=== PATIENT | female | born 1935 | race Caucasian/White ===

== ENCOUNTER 2016-06-26 09:01 | Inpatient (IN) | payer MEDICARE, MEDICAID ==
[2016-06-26] MEDS ORDERED: methylPREDNISolone Sodium Succinate 125 MG/2 ML SDV ONE (10:30)
[2016-06-26] MEDS: methylPREDNISolone Sodium Succinate 125 MG/2 ML SDV IVPUSH SCH ×2 (10:30→18:53)
--- NOTE | 2016-06-26 11:35 | EDM.PDOC ---
ED HISTORY OF PRESENT ILLNESS - General Chief Complaint: Respiratory Problem Stated Complaint: SOB Time Seen by Provider: 06/26/16 09:45 Source: Reports: Patient, Family History Limitations: Reports: No limitations - History of Present Illness INITIAL COMMENTS - FREE TEXT/NARRATIVE: This is an 80yo F brought in via EMS for sob and increasing oxygen use. Patient states she has felt feverish at times and some chills. Patient states she has had to increase her oxygen to 3L for over a week and then increased it to 3.5L the past few days and EMS turned it up to 4L due to her oxygen saturation dropping to around 90's. Patient has felt sob for a few weeks now. Patient states she was unable to come in yesterday as she did not have a ride. 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 treatments, Home treatments, Other medication(s) - Related Data Allergies/ADRs: Allergies Allergy/AdvReac Type Severity Reaction Status Date / Time azithromycin [From Zithromax] Allergy Difficulty Verified 06/26/16 11:29 Breathing bupropion HCl Allergy Difficulty Verified 06/26/16 11:29 [From Wellbutrin] Breathing ciprofloxacin Allergy Difficulty Verified 06/26/16 11:29 Breathing fluticasone propionate Allergy Difficulty Verified 06/26/16 11:29 [From Advair Diskus] Breathing levofloxacin Allergy Muscle Verified 06/26/16 11:29 Aches salmeterol xinafoate Allergy Difficulty Verified 06/26/16 11:29 [From Advair Diskus] Breathing soy Allergy Difficulty Verified 06/26/16 11:29 Breathing ED ROS GENERAL - Review of Systems Review Of Systems: ROS reveals no pertinent complaints other than HPI. ED EXAM, GENERAL - Physical Exam Exam: See Below Exam Limited By: No limitations General Appearance: alert, WD/WN, mild distress Eye Exam: bilateral eye: PERRL Ears: normal external exam Ear Exam: bilateral ear: auricle normal, canal normal, TM normal Nose: normal inspection Throat/Mouth: Normal inspection Head: atraumatic, normocephalic Neck: normal inspection, supple, non-tender Respiratory/Chest: decreased breath sounds, rhonchi, wheezing Cardiovascular: normal peripheral pulses, tachycardia Peripheral Pulses: 2+: dorsalis pedis (L) GI/Abdominal: normal bowel sounds, soft, non tender Back Exam: normal inspection, full range of motion Extremities: normal inspection, normal range of motion, non-tender Neurological: alert, oriented, CN II-XII intact Psychiatric: normal affect, normal mood Skin Exam: Warm, Dry, Intact Course - Vital Signs Last Recorded V/S: Last Vital Signs Temp 36.5 C 06/26/16 10:50 Pulse 113 H 06/26/16 10:50 Resp 24 H 06/26/16 10:50 BP 140/65 06/26/16 10:50 Pulse Ox 94 L 06/26/16 10:50 - Orders/Labs/Meds Orders: Active Orders 24 hr Category Date Time Status methylPREDNISolone Sod Succ [Solu-MEDROL] Med 06/26/16 10:30 Active 125 mg IVPUSH Q8H Medication Orders Albuterol/Ipratropium (Duoneb 3.0-0.5 Mg/3 Ml) 3 ml NEB QID [facility]1983 Last Admin: 06/26/16 10:10 Dose: 3 ml Piperacillin Sod/Tazobactam (Sod 4.5 gm/ Sodium Chloride) 100 mls @ 200 mls/hr IV Q6H [facility]1983 Methylprednisolone Sodium Succinate (Solu-Medrol) 125 mg IVPUSH Q8H [facility] Last Admin: 06/26/16 10:30 Dose: 125 mg Ondansetron HCl (Zofran) 4 mg IV Q4H PRN PRN Reason: Nausea/Vomiting Sodium Chloride (Saline Flush) 10 ml FLUSH ASDIRECTED PRN PRN Reason: Keep Vein Open Labs: Laboratory Tests 06/26/16 06/26/16 06/26/16 Range/Units 10:16 10:16 10:16 WBC 11.1 H (4.0-11.0) K/uL RBC 4.57 (3.80-5.80) M/uL Hgb 13.0 (11.5-16.5) g/dL Hct 40.4 (37.0-47.0) % MCV 88 (76-96) fL MCH 28.4 (27.0-32.0) pg MCHC 32.2 (31.0-35.0) g/dL RDW 14.5 (11.0-16.0) % Plt Count 471 (150-500) K/uL MPV 9.6 (6.0-10.0) fL Neut % (Auto) 70.3 H (45.0-70.0) % Lymph % (Auto) 18.7 L (20.0-40.0) % Ashley % (Auto) 9.6 (3.0-10.0) % Eos % (Auto) 1.0 (1.0-5.0) % Baso % (Auto) 0.4 (0.0-0.5) % Neut # (Auto) 7.77 H (2.00-7.50) K/uL Lymph # (Auto) 2.07 (1.50-4.00) K/uL Ashley # (Auto) 1.06 H (0.20-0.80) K/uL Eos # (Auto) 0.11 (0.04-0.40) K/uL Baso # (Auto) 0.04 (0.02-0.10) K/uL VBG pH 7.33 (7.31-7.41) Sodium 139 (136-145) mmol/L Potassium 4.0 (3.5-5.1) mmol/L Chloride 99 (98-107) mmol/L Carbon Dioxide 30.2 (21.0-32.0) mmol/L Anion Gap 13.8 (5.0-15.0) mmol/L BUN 9 (8-26) mg/dL Creatinine 0.74 D (0.55-1.02) mg/dL Est Cr Clr Drug Dosing 47.16 mL/min Estimated GFR (MDRD) > 60 (>60) MLS/MIN BUN/Creatinine Ratio 12.2 (6-25) Glucose 122 H (74-100) mg/dL Calcium 8.7 (8.5-10.1) mg/dL Total Bilirubin 0.2 D (0.0-1.0) mg/dL AST 30 (15-37) U/L ALT 29 (12-78) U/L Alkaline Phosphatase 79 (46-116) U/L B-Natriuretic Peptide 100 D (0-450) pg/mL Total Protein 7.5 (6.4-8.2) g/dL Albumin 3.5 (3.4-5.0) g/dL Globulin 4.0 (2.2-4.2) g/dL Albumin/Globulin Ratio 0.9 (0.8-2.0) TSH, Ultra Sensitive 0.239 L D (0.358-3.740) uIU/mL Meds: Medications Generic Name Dose Route Start Last Admin Trade Name Freq PRN Reason Stop Dose Admin Albuterol/Ipratropium 3 ml 06/26/16 12:00 06/26/16 10:10 Duoneb 3.0-0.5 Mg/3 Ml NEB 3 ml QID AISSATOU Administration Piperacillin Sod/Tazobactam 100 mls @ 200 mls/hr 06/26/16 12:00 Sod 4.5 gm/ Sodium Chloride IV Q6H AISSATOU Methylprednisolone Sodium Succinate 125 mg 06/26/16 10:30 06/26/16 10:30 Solu-Medrol IVPUSH 125 mg Q8H AISSATOU Administration Ondansetron HCl 4 mg 06/26/16 10:24 Zofran IV Q4H PRN Nausea/Vomiting Sodium Chloride 10 ml 06/26/16 10:24 Saline Flush FLUSH ASDIRECTED PRN Keep Vein Open Discontinued Medications Generic Name Dose Route Start Last Admin Trade Name Freq PRN Reason Stop Dose Admin Methylprednisolone Sodium Succinate Confirm 06/26/16 10:30 Solu-Medrol Administered 06/26/16 10:31 Dose 125 mg .ROUTE .STK-MED ONE Departure - Departure Time of Disposition: 10:15 Disposition: Admitted As Inpatient 65 Condition: fair Clinical Impression: COPD exacerbation Pneumonia Qualifiers: Pneumonia type: due to unspecified organism Laterality: right Lung location: lower lobe of lung Qualified Code(s): J18.1 - Lobar pneumonia, unspecified organism CHF (congestive heart failure) Qualifiers: Congestive heart failure type: unspecified congestive heart failure type Congestive heart failure chronicity: chronic Qualified Code(s): I50.9 - Heart failure, unspecified Hypothyroidism Qualifiers: Hypothyroidism type: acquired Qualified Code(s): E03.9 - Hypothyroidism, unspecified Colon cancer Qualifiers: Colon location: unspecified part of colon Qualified Code(s): C18.9 - Malignant neoplasm of colon, unspecified - Problem List Review Problem List Initiated/Reviewed/Updated: Yes - My Orders Last 24 Hours: My Active Orders 06/26/16 10:30 methylPREDNISolone Sod Succ [Solu-MEDROL] 125 mg IVPUSH Q8H - Assessment/Plan Last 24 Hours: My Active Orders 06/26/16 10:30 methylPREDNISolone Sod Succ [Solu-MEDROL] 125 mg IVPUSH Q8H Plan: Patient admitted for pneumonia and COPD exacerbation. She has a history of Colon Cancer but per [facility] notes she is not being treated and has been assessed by Oncology and they are aware that patient does not want to do anything further. Started on Zosyn, Solumedrol started. Will consider change from Brovana to Pulmicort. Continue Duoneb as long as no concerns of side effects as she is doing well with her most recent duoneb dose.
[2016-06-26] MEDS ORDERED: Ipratropium 0.02% 0.5 MG/2.5 ML Neb Soln INH PRN (11:48)
[2016-06-26] MEDS ORDERED: Albuterol/Ipratropium 3.0-0.5 MG/3 ML Neb Soln NEB SCH (12:00)
[2016-06-26] MEDS ORDERED: Arformoterol 15 MCG/2 ML Neb Soln NEB SCH (12:00)
[2016-06-26] MEDS ORDERED: LEVALBUTEROL TARTRATE INH SCH (12:00)
[2016-06-26] MEDS ORDERED: Furosemide 20 MG Tab PO PRN (12:16)
[2016-06-26] MEDS ORDERED: Levalbuterol HCl 1.25 MG/0.5 ML Neb INH ONE (12:30)
[2016-06-26] MEDS: LORazepam 2 MG/ML MDV IVPUSH PRN (13:02)
[2016-06-26] MEDS: Piperacillin/Tazobactam 4.5 GM in Sodium Chloride 0.9% 100 ML IV SCH ×2 (13:04→18:07)
[2016-06-26] MEDS ORDERED: Nystatin Crm 30 GM Tube TOP PRN (14:20)
[2016-06-26] MEDS: Ipratropium 0.02% 0.5 MG/2.5 ML Neb Soln INH SCH ×2 (15:18→20:03)
[2016-06-26] MEDS: Acetaminophen 325 MG Tab PO PRN (18:00)
--- NOTE | 2016-06-26 19:19 | CR ---
DATE OF SERVICE: 06/26/16 CLINICAL DATA: SOB, COPD AP PORTABLE CHEST: Comparison made to a prior exam dated 11/09/15. The patient is rotated to the right. The heart is mildly enlarged. It has increased in size from the prior exam. There is a moderate-sized right pleural effusion. There is infiltrate and consolidation in the right lower lung. Pneumonia should be considered. There are mild atelectatic changes in the left lower lung. There is an irregularly-shaped nodular density in the right mid lung that I did not see on the prior exam. There is also a nodular density in the left lower lung not seen on the prior study. The exam is otherwise unchanged. Followup exam is recommended. [id number] [facility]
[2016-06-26] MEDS ORDERED: Fluticasone Propionate 220 MCG/Puff 12 GM Inhaler INH SCH (20:00)
[2016-06-26] MEDS: Melatonin 3 MG Tab PO SCH (20:03)
[2016-06-26] MEDS: Budesonide 0.5 MG/2 ML Neb Susp INH SCH (20:03)
[2016-06-26] MEDS: Levalbuterol HCl 1.25 MG/0.5 ML Neb INH SCH (20:09)
[2016-06-27] MEDS: Piperacillin/Tazobactam 4.5 GM in Sodium Chloride 0.9% 100 ML IV SCH ×4 (02:39→18:12)
[2016-06-27] MEDS: methylPREDNISolone Sodium Succinate 125 MG/2 ML SDV IVPUSH SCH ×3 (02:39→18:12)
[2016-06-27] MEDS: Ipratropium 0.02% 0.5 MG/2.5 ML Neb Soln INH SCH ×4 (02:43→19:56)
[2016-06-27] MEDS: Sodium Chloride 0.9% 10 ML Syringe FLUSH PRN (03:07)
[2016-06-27] MEDS: Acetaminophen 325 MG Tab PO PRN ×2 (03:19→10:31)
[2016-06-27] MEDS: LORazepam 2 MG/ML MDV IVPUSH PRN ×2 (03:47→13:16)
[2016-06-27] MEDS ORDERED: Furosemide 40 MG Tab PO SCH (08:00)
[2016-06-27] MEDS ORDERED: Non-Formulary Medication 1 Each (Ascorbic Acid [Vitamin C] 500 MG) PO SCH (08:00)
[2016-06-27] MEDS: Omeprazole 20 MG Cap.CR PO SCH (08:08)
[2016-06-27] MEDS: Levothyroxine 100 MCG Tab PO SCH (08:08)
[2016-06-27] MEDS: GENTLE IRON PO SCH (08:08)
[2016-06-27] MEDS: Budesonide 0.5 MG/2 ML Neb Susp INH SCH ×2 (08:09→20:23)
[2016-06-27] MEDS: Levalbuterol HCl 1.25 MG/0.5 ML Neb INH SCH ×3 (08:24→20:23)
[2016-06-27] MEDS: Cetirizine 10 MG Tab PO SCH ×2 (10:33→13:15)
[2016-06-27] MEDS ORDERED: Albuterol/Ipratropium 3.0-0.5 MG/3 ML Neb Soln INH ONE (11:30)
[2016-06-27] MEDS ORDERED: Morphine 2 MG/ML Syringe IVPUSH ONE (11:32)
[2016-06-27] MEDS ORDERED: Loperamide 2 MG Cap PO PRN (11:33)
[2016-06-27] MEDS ORDERED: Morphine 2 MG/ML Syringe ONE (11:39)
[2016-06-27] MEDS: CALCIUM CARB PO SCH (12:04)
[2016-06-27] MEDS: ZINC PO SCH (12:04)
[2016-06-27] MEDS: MAGNESIUM PO SCH (12:04)
[2016-06-27] MEDS: VITAMIN B6 100 MG PO SCH (12:06)
[2016-06-27] MEDS: [UNRECOGNIZED DRUG - OTHER] PO SCH (12:06)
[2016-06-27] MEDS: Montelukast 10 MG Tab PO SCH (12:09)
[2016-06-27] MEDS: Metoprolol Succinate 25 MG Tab.ER PO SCH (12:09)
[2016-06-27] MEDS: VITAMIN D3/CALCIUM PO SCH (13:17)
--- NOTE | 2016-06-27 14:04 | PCM.PN ---
- General Info Date of Service: 06/27/16 Subjective Update: This is an 80yo F with continued complaints of sob. Patient has an oxygen saturation of 92-96%. Patient also complains of diarrhea since yesterday. Denies any chest pain, no fever or chills. Functional Status: Reports: incentive spirometry - Review of Systems General: Reports: No Symptoms HEENT: Reports: no symptoms Pulmonary: Reports: shortness of breath, wheezing Cardiovascular: Reports: Dyspnea on Exertion Gastrointestinal: Reports: Diarrhea Genitourinary: Reports: no symptoms Musculoskeletal: Reports: no symptoms Skin: Reports: no symptoms Neurological: Reports: No Symptoms Psychiatric: Reports: no symptoms - Patient Data Vitals - most recent: Last Vital Signs Temp 37.1 C 06/27/16 11:00 Pulse 114 H 06/27/16 12:09 Resp 22 H 06/27/16 11:00 BP 125/58 L 06/27/16 12:09 Pulse Ox 95 06/27/16 11:00 Weight - most recent: 61.235 kg Lab Results last 24 hrs: Laboratory Results - last 24 hr 06/27/16 Range/Units 08:20 WBC 11.2 H (4.0-11.0) K/uL RBC 4.57 (3.80-5.80) M/uL Hgb 13.0 (11.5-16.5) g/dL Hct 40.5 (37.0-47.0) % MCV 89 (76-96) fL MCH 28.4 (27.0-32.0) pg MCHC 32.1 (31.0-35.0) g/dL RDW 14.7 (11.0-16.0) % Plt Count 566 H D (150-500) K/uL MPV 9.4 (6.0-10.0) fL Neut % (Auto) 86.1 H (45.0-70.0) % Lymph % (Auto) 12.4 L (20.0-40.0) % Ralls % (Auto) 1.2 L (3.0-10.0) % Eos % (Auto) 0.1 L (1.0-5.0) % Baso % (Auto) 0.2 (0.0-0.5) % Neut # (Auto) 9.67 H (2.00-7.50) K/uL Lymph # (Auto) 1.39 L (1.50-4.00) K/uL Ralls # (Auto) 0.14 L (0.20-0.80) K/uL Eos # (Auto) 0.01 L (0.04-0.40) K/uL Baso # (Auto) 0.02 (0.02-0.10) K/uL Ayo Results last 24 hrs: Microbiology 06/26/16 12:30 Aerobic Blood Culture - Preliminary Blood NO GROWTH AFTER 1 DAY Anaerobic Blood Culture - Preliminary NO GROWTH AFTER 1 DAY 06/26/16 11:45 Aerobic Blood Culture - Preliminary Blood NO GROWTH AFTER 1 DAY Anaerobic Blood Culture - Preliminary NO GROWTH AFTER 1 DAY Med Orders - Current: Current Medications Acetaminophen (Tylenol) 650 mg PO Q6H PRN PRN Reason: Headache Last Admin: 06/27/16 10:31 Dose: 650 mg Ascorbic Acid (Vitamin C) 500 mg PO 1200 AISSATOU Budesonide (Pulmicort) 0.5 mg INH BID [facility] Last Admin: 06/27/16 08:09 Dose: 0.5 mg Cetirizine HCl (Zyrtec) 10 mg PO 1200 AISSATOU Last Admin: 06/27/16 13:15 Dose: Not Given Furosemide (Lasix) 20 mg PO DAILY PRN PRN Reason: EDEMA Piperacillin Sod/Tazobactam (Sod 4.5 gm/ Sodium Chloride) 100 mls @ 200 mls/hr IV Q6H [facility] Last Admin: 06/27/16 11:52 Dose: 200 mls/hr Ipratropium [place] (Atrovent) 0.5 mg INH Q6H [facility] Last Admin: 06/27/16 08:08 Dose: 0.5 mg Levalbuterol HCl (Xopenex) 1.25 mg INH 0800,1400,2000 [facility] Last Admin: 06/27/16 08:24 Dose: 1.25 mg Levothyroxine Sodium (Synthroid) 100 mcg PO ACBREAKFAST [facility] Last Admin: 06/27/16 08:08 Dose: 100 mcg Loperamide HCl (Imodium) 2 mg PO Q4H PRN PRN Reason: Diarrhea Last Admin: 06/27/16 11:53 Dose: 2 mg Lorazepam (Ativan) 0.25 mg IVPUSH Q4H PRN PRN Reason: shortness of breath/anxiety Last Admin: 06/27/16 13:16 Dose: 0.25 mg Melatonin (Melatonin) 3 mg PO BEDTIME [facility] Last Admin: 06/26/16 20:03 Dose: 3 mg Methylprednisolone Sodium Succinate (Solu-Medrol) 125 mg IVPUSH Q8H [facility] Last Admin: 06/27/16 10:32 Dose: 125 mg Metoprolol Succinate (Toprol Xl) 25 mg PO 1200 [facility] Last Admin: 06/27/16 12:09 Dose: 25 mg Montelukast Sodium (Singulair) 10 mg PO 1200 [facility] Last Admin: 06/27/16 12:09 Dose: 10 mg (Calcium Carb/ (Magnesium/Zinc) 1 tab PO 1200 [facility] Last Admin: 06/27/16 12:04 Dose: 1 tab Cyanocobalamin 1 each PO 1200 [facility] Last Admin: 06/27/16 12:05 Dose: 1 each Gentle Iron 56 mg PO DAILY [facility] Last Admin: 06/27/16 08:08 Dose: 56 mg Vitamin B6 100mg 1 each PO 1200 [facility] Last Admin: 06/27/16 12:06 Dose: 1 each Vitamin D3/Calcium 1 each PO 1200 [facility] Last Admin: 06/27/16 13:17 Dose: 1 each Vitamin B Supplement 1 each PO 1200 [facility] Last Admin: 06/27/16 12:06 Dose: 1 each Nystatin (Nystatin Crm) 1 gm TOP TID PRN PRN Reason: YEAST UNDER BREASTS NEEDED Omeprazole (Omeprazole) 20 mg PO DAILY [facility] Last Admin: 06/27/16 08:08 Dose: 20 mg Ondansetron HCl (Zofran) 4 mg IV Q4H PRN PRN Reason: Nausea/Vomiting Sodium Chloride (Saline Flush) 10 ml FLUSH ASDIRECTED PRN PRN Reason: Keep Vein Open Last Admin: 06/27/16 03:07 Dose: 10 ml Discontinued Medications Albuterol/Ipratropium (Duoneb 3.0-0.5 Mg/3 Ml) 3 ml NEB QID [facility] Last Admin: 06/26/16 10:10 Dose: 3 ml Albuterol/Ipratropium (Duoneb 3.0-0.5 Mg/3 Ml) 3 ml INH ONETIME ONE Stop: 06/27/16 11:31 Last Admin: 06/27/16 11:30 Dose: 3 ml Levalbuterol HCl (Xopenex) 1.25 mg INH ONETIME ONE Stop: 06/26/16 12:31 Last Admin: 06/26/16 12:30 Dose: 1.25 mg Methylprednisolone Sodium Succinate (Solu-Medrol) Confirm Administered Dose 125 mg .ROUTE .STK-MED ONE Stop: 06/26/16 10:31 Last Admin: 06/26/16 13:03 Dose: Not Given Morphine Sulfate (Morphine) 1 mg IVPUSH ONETIME ONE Stop: 06/27/16 11:33 Last Admin: 06/27/16 11:51 Dose: 1 mg Morphine Sulfate (Morphine) Confirm Administered Dose 2 mg .ROUTE .STK-MED ONE Stop: 06/27/16 11:40 Last Admin: 06/27/16 12:09 Dose: Not Given - Exam Quality Assessment: supplemental oxygen General: alert, oriented, cooperative HEENT: Pupils equal, Pupils reactive Neck: supple Lungs: Decreased breath sounds, Wheezing Cardiovascular: Regular Rhythm, Tachycardia Abdomen: bowel sounds present, soft, no tenderness, abnormal bowel sounds ( frequent) Back Exam: normal inspection, full range of motion Extremities: no edema Peripheral Pulses: 2+: dorsalis pedis (L), dorsalis pedis (R) Skin: warm, dry, intact Neurological: no new focal deficit Psy/Mental Status: alert, normal affect, normal mood - Problem List & Annotations (1) Clostridium difficile diarrhea SNOMED Code(s): 273742807, 648783760 Code(s): A04.7 - ENTEROCOLITIS DUE TO CLOSTRIDIUM DIFFICILE Status: Acute Priority: High Current Visit: Yes (2) CHF (congestive heart failure) SNOMED Code(s): 44131051 Code(s): I50.9 - HEART FAILURE, UNSPECIFIED Status: Chronic Priority: Medium Current Visit: Yes Qualifiers: Congestive heart failure type: unspecified congestive heart failure type Congestive heart failure chronicity: chronic Qualified Code(s): I50.9 - Heart failure, unspecified (3) COPD exacerbation SNOMED Code(s): 816689080, 787408627 Code(s): J44.1 - CHRONIC OBSTRUCTIVE PULMONARY DISEASE W (ACUTE) EXACERBATION Status: Acute Priority: High Current Visit: Yes (4) Colon cancer SNOMED Code(s): 544661334 Code(s): C18.9 - MALIGNANT NEOPLASM OF COLON, UNSPECIFIED Status: Chronic Priority: Medium Current Visit: Yes Qualifiers: Colon location: unspecified part of colon Qualified Code(s): C18.9 - Malignant neoplasm of colon, unspecified (5) Hypothyroidism SNOMED Code(s): 38876359 Code(s): E03.9 - HYPOTHYROIDISM, UNSPECIFIED Status: Chronic Priority: Medium Current Visit: Yes Qualifiers: Hypothyroidism type: acquired Qualified Code(s): E03.9 - Hypothyroidism, unspecified (6) Pneumonia SNOMED Code(s): 332601951 Code(s): J18.9 - PNEUMONIA, UNSPECIFIED ORGANISM Status: Acute Priority: High Current Visit: Yes Qualifiers: Pneumonia type: due to unspecified organism Laterality: right Lung location: lower lobe of lung Qualified Code(s): J18.1 - Lobar pneumonia, unspecified organism - Problem List Review Problem List Initiated/Reviewed/Updated: Yes - My Orders Last 24 Hours: My Active Orders 06/26/16 14:20 Nystatin [Nystatin Crm] 1 gm TOP TID PRN 06/26/16 14:30 Ipratropium [Atrovent] 0.5 mg INH Q6H 06/26/16 16:20 CULTURE MRSA SURVEY [] Routine 06/26/16 18:01 Acetaminophen [Tylenol] 650 mg PO Q6H PRN 06/26/16 20:00 Budesonide [Pulmicort] 0.5 mg INH BID Levalbuterol HCl [Xopenex] 1.25 mg INH 0800,1400,2000 Melatonin 3 mg PO BEDTIME 06/27/16 08:00 Ferrous Gluconate [Ferate] 56 mg PO DAILY Levothyroxine [Synthroid] 100 mcg PO ACBREAKFAST Omeprazole 20 mg PO DAILY 06/27/16 11:32 CLOSTRIDIUM DIFFICILE BY PCR [RM] Routine 06/27/16 11:33 Loperamide [Imodium] 2 mg PO Q4H PRN 06/27/16 12:00 Ascorbic Acid [Vitamin C] 500 mg PO 1200 Calcium Carb/D3/Magnesium/Zinc [Bogdan Mag Zinc + D3] 1 tab PO 1200 Cetirizine [ZyrTEC] 10 mg PO 1200 Cyanocobalamin/Cobamamide [Cvs B-12 5,000 Mcg Microlozeng] 1 each PO 1200 Metoprolol Succinate [Toprol XL] 25 mg PO 1200 Montelukast [Singulair] 10 mg PO 1200 Non-Formulary Medication [NF Drug] 1 each PO 1200 Non-Formulary Medication [NF Drug] 1 each PO 1200 Non-Formulary Medication [NF Drug] 1 each PO 1200 06/27/16 Dinner Sodium Restricted Diet [DIET] - Plan Plan:: Pneumonia: Patient to continue on current IV antibiotics for pneumonia. Pending blood cultures. Clostridium Difficile diarrhea: Treatment to start with oral Vancomycin for 14 days. Contact isolation protocol. COPD exacerbation: Continue adjustment of nebulizers and inhalers with steroids. Monitor status and oxygen. Patient appears anxious which causes increasing feeling of sob despite good oxygenation. CHF: Chronic, no JVD, continue monitoring fluid status.
[2016-06-27] MEDS: Ascorbic Acid 500 MG Tab PO SCH (15:13)
[2016-06-27] MEDS: Vancomycin 1 GM SDV PO SCH ×2 (15:14→19:56)
[2016-06-27] MEDS: Morphine 2 MG/ML Syringe IVPUSH PRN ×2 (19:54→23:33)
[2016-06-27] MEDS: Melatonin 3 MG Tab PO SCH (19:56)
[2016-06-28] MEDS: Piperacillin/Tazobactam 4.5 GM in Sodium Chloride 0.9% 100 ML IV SCH ×4 (05:12→18:16)
[2016-06-28] MEDS: Morphine 2 MG/ML Syringe IVPUSH PRN ×5 (05:13→20:09)
[2016-06-28] MEDS: methylPREDNISolone Sodium Succinate 125 MG/2 ML SDV IVPUSH SCH ×3 (05:13→18:17)
[2016-06-28] MEDS: Ipratropium 0.02% 0.5 MG/2.5 ML Neb Soln INH SCH ×4 (05:15→20:08)
[2016-06-28] MEDS: Levothyroxine 100 MCG Tab PO SCH ×2 (05:16→08:40)
[2016-06-28] MEDS: Omeprazole 20 MG Cap.CR PO SCH (07:55)
[2016-06-28] MEDS ORDERED: Ferrous Sulfate 325 MG Tab ONE (08:00)
[2016-06-28] MEDS: Vancomycin 1 GM SDV PO SCH ×4 (08:02→20:09)
[2016-06-28] MEDS: Budesonide 0.5 MG/2 ML Neb Susp INH SCH ×2 (08:02→20:09)
[2016-06-28] MEDS ORDERED: Ferrous Gluconate 324 MG Tab ONE ×2 (08:26→08:36)
[2016-06-28] MEDS: GENTLE IRON PO SCH (08:43)
[2016-06-28] MEDS ORDERED: Furosemide 20 MG Tab PO PRN (09:27)
--- NOTE | 2016-06-28 10:20 | PN ---
DATE OF VISIT: SUBJECTIVE: This patient is in the hospital for COPD. She has had problems with shortness of breath and is also having some issues with coffee-ground stool. The patient does have history of colon cancer. I understand, but chose not to undergo any treatment for this. Nursing staff reports that the patient continues to be in some shortness of breath. They have been giving neb treatments to her in addition to oxygen. The patient's O2 sats have been good in the mid to upper 90s with oxygen. The patient has been eating small amounts of food and has not been complaining of any pain. When I walked into the room today, the patient was in the middle of a nebulizer treatment. I asked the patient how she is feeling and she says not real good, but she is not having any pain. She has some shortness of breath. OBJECTIVE: VITAL SIGNS: Reviewed today. She is afebrile. Blood pressure 141/74, O2 sats are 98% on oxygen, respiratory rate 20. GENERAL: The patient is taking deep breaths and using accessory muscles with respiration. There is no coughing at this time. RESPIRATORY: Lung exam reveals mild wheezes scattered throughout and some rales also noted, scattered. ABDOMEN: Soft, protuberant. nontender. SKIN: Warm and dry. The patient has no significant swelling of the ankles, they are small. ASSESSMENT/PLAN: Treatment changes today. I will increase the patient's Lasix from 20 mg to 40 mg today. They have been giving her morphine at 1 mg every 2 hours as needed for anxiety. They should do this more routinely today than p.r.n. and we will see how the patient responds to this. Continue other treatment measures. CRS/MODL /[id number]
[2016-06-28] MEDS: Furosemide 20 MG Tab PO SCH (10:49)
[2016-06-28] MEDS: Levalbuterol HCl 1.25 MG/0.5 ML Neb INH SCH ×2 (11:42→14:20)
[2016-06-28] MEDS: Lactobacillus Acidophilus/Lactobacillus Sporogenes (Probiotic) Tab PO SCH (12:26)
[2016-06-28] MEDS: CALCIUM CARB PO SCH (12:26)
[2016-06-28] MEDS: ZINC PO SCH (12:26)
[2016-06-28] MEDS: MAGNESIUM PO SCH (12:26)
[2016-06-28] MEDS: VITAMIN B6 100 MG PO SCH (12:27)
[2016-06-28] MEDS: VITAMIN D3/CALCIUM PO SCH (12:27)
[2016-06-28] MEDS: Metoprolol Succinate 25 MG Tab.ER PO SCH (12:28)
[2016-06-28] MEDS: Cetirizine 10 MG Tab PO SCH (12:28)
[2016-06-28] MEDS: [UNRECOGNIZED DRUG - OTHER] PO SCH (12:28)
[2016-06-28] MEDS: Ascorbic Acid 500 MG Tab PO SCH (12:28)
[2016-06-28] MEDS: Montelukast 10 MG Tab PO SCH (12:29)
[2016-06-28] MEDS: Menthol/Zinc Oxide Ointment 113 GM Tube TOP PRN ×2 (14:00→18:00)
[2016-06-28] MEDS: Melatonin 3 MG Tab PO SCH (20:11)
[2016-06-28] MEDS: Sodium Chloride 0.9% 10 ML Syringe FLUSH PRN (20:12)
[2016-06-29] MEDS: Piperacillin/Tazobactam 4.5 GM in Sodium Chloride 0.9% 100 ML IV SCH ×4 (00:08→18:16)
[2016-06-29] MEDS: Morphine 2 MG/ML Syringe IVPUSH PRN ×2 (02:12→07:56)
[2016-06-29] MEDS: methylPREDNISolone Sodium Succinate 125 MG/2 ML SDV IVPUSH SCH ×2 (02:13→20:30)
[2016-06-29] MEDS: Sodium Chloride 0.9% 10 ML Syringe FLUSH PRN ×2 (02:13→07:54)
[2016-06-29] MEDS: LORazepam 2 MG/ML MDV IVPUSH PRN (02:35)
[2016-06-29] MEDS ORDERED: Melatonin 3 MG Tab ONE (03:04)
[2016-06-29] MEDS: Levothyroxine 100 MCG Tab PO SCH ×2 (05:22→07:09)
[2016-06-29] MEDS: Acetaminophen 325 MG Tab PO PRN ×2 (05:22→13:34)
[2016-06-29] MEDS: Ondansetron 4 MG/2 ML SDV IV PRN (07:54)
[2016-06-29] MEDS: Omeprazole 20 MG Cap.CR PO SCH (07:58)
[2016-06-29] MEDS: Fluticasone Propionate 220 MCG/Puff 12 GM Inhaler INH SCH ×2 (08:07→20:00)
[2016-06-29] MEDS: Budesonide 0.5 MG/2 ML Neb Susp INH SCH ×2 (08:08→20:02)
[2016-06-29] MEDS: GENTLE IRON PO SCH (08:15)
[2016-06-29] MEDS: Furosemide 20 MG Tab PO SCH (08:15)
[2016-06-29] MEDS: Vancomycin 1 GM SDV PO SCH ×4 (12:15→19:56)
[2016-06-29] MEDS: methylPREDNISolone Sodium Succinate 125 MG/2 ML SDV IM SCH ×2 (12:59→19:00)
[2016-06-29] MEDS: Ascorbic Acid 500 MG Tab PO SCH (13:00)
[2016-06-29] MEDS: Metoprolol Succinate 25 MG Tab.ER PO SCH (13:00)
[2016-06-29] MEDS: CALCIUM CARB PO SCH (13:31)
[2016-06-29] MEDS: MAGNESIUM PO SCH (13:31)
[2016-06-29] MEDS: VITAMIN D3/CALCIUM PO SCH (13:31)
[2016-06-29] MEDS: ZINC PO SCH (13:31)
[2016-06-29] MEDS: [UNRECOGNIZED DRUG - OTHER] PO SCH (13:32)
[2016-06-29] MEDS: VITAMIN B6 100 MG PO SCH (13:32)
[2016-06-29] MEDS: Montelukast 10 MG Tab PO SCH (13:34)
[2016-06-29] MEDS: Cetirizine 10 MG Tab PO SCH (13:34)
[2016-06-29] MEDS: Lactobacillus Acidophilus/Lactobacillus Sporogenes (Probiotic) Tab PO SCH (13:36)
[2016-06-29] MEDS: Morphine 2 MG/ML Syringe SUBCUT PRN (13:55)
--- NOTE | 2016-06-29 16:06 | PN ---
DATE OF VISIT: SUBJECTIVE: In seeing the patient today, her breathing has definitely improved. She was sleeping quietly when I entered her room. she is being treated for COPD and C Diff. The patient awakened with verbal stimuli. She states that she is tired, otherwise that she feels better. She is not having any pain. Yesterday, the patient was still having mild shortness of breath and taking long deep breaths. Today, her breathing is unlabored. Examining the patient reveals lungs are still having minimal expiratory wheezes scattered throughout. I do not hear any rales or rhonchi today. Abdomen is soft and nontender. Lower extremities reveal the skin is intact without any more than a trace of swelling today. Yesterday, I did increase her Lasix from 20 mg to 40 mg and she was restarted on her Flovent which she wanted to use. At this point, no further changes will be made. The patient's condition has definitely improved from yesterday. Her family members had some concern about her eyes being mattery and possibly infected. I examined the patient's eyes today. Conjunctivae pale. Sclerae white. There is no matter or exudate. Her IV is no longer patent, and a new IV site was not able to be obtained. Therefore Zosyn will be replaced with Augmentin. No further treatment measures will be started today. CRS/MODL /[id number]
[2016-06-29] MEDS ORDERED: Amoxicillin/Clavulanate K 875-125 MG Tab ONE (16:16)
[2016-06-29] MEDS: Ipratropium 0.02% 0.5 MG/2.5 ML Neb Soln NEB SCH ×2 (16:35→21:41)
[2016-06-29] MEDS: Melatonin 3 MG Tab PO SCH (19:56)
[2016-06-29] MEDS: Amoxicillin/Clavulanate K 875-125 MG Tab PO SCH (20:05)
[2016-06-30] MEDS: methylPREDNISolone Sodium Succinate 125 MG/2 ML SDV IM SCH ×3 (03:15→20:06)
[2016-06-30] MEDS: Morphine 2 MG/ML Syringe SUBCUT PRN ×4 (03:23→20:31)
[2016-06-30] MEDS: Levothyroxine 100 MCG Tab PO SCH (06:32)
[2016-06-30] MEDS: Ipratropium 0.02% 0.5 MG/2.5 ML Neb Soln NEB SCH ×3 (06:32→22:21)
[2016-06-30] MEDS: Vancomycin 1 GM SDV PO SCH ×5 (07:26→20:12)
[2016-06-30] MEDS: Budesonide 0.5 MG/2 ML Neb Susp INH SCH ×2 (07:28→20:17)
[2016-06-30] MEDS: Omeprazole 20 MG Cap.CR PO SCH (07:29)
[2016-06-30] MEDS: Amoxicillin/Clavulanate K 875-125 MG Tab PO SCH ×2 (07:29→20:11)
[2016-06-30] MEDS: Furosemide 20 MG Tab PO SCH (07:29)
[2016-06-30] MEDS: Fluticasone Propionate 220 MCG/Puff 12 GM Inhaler INH SCH ×2 (07:30→20:14)
[2016-06-30] MEDS: GENTLE IRON PO SCH (07:32)
--- NOTE | 2016-06-30 10:39 | PCM.PN ---
- General Info Date of Service: 06/30/16 Subjective Update: Patient states she is still sob and not her baseline. She appears to be comfortably resting and talking on 3L. Patient denies other concerns today. Functional Status: Reports: tolerating diet, incentive spirometry - Review of Systems General: Reports: Weakness HEENT: Reports: no symptoms Pulmonary: Reports: shortness of breath, wheezing Cardiovascular: Reports: No Symptoms Gastrointestinal: Reports: No symptoms Genitourinary: Reports: no symptoms Musculoskeletal: Reports: no symptoms Skin: Reports: no symptoms Neurological: Reports: No Symptoms Psychiatric: Reports: anxiety - Patient Data Vitals - most recent: Last Vital Signs Temp 36.8 C 06/30/16 07:32 Pulse 57 L 06/30/16 07:32 Resp 18 06/30/16 07:32 BP 128/65 06/30/16 07:32 Pulse Ox 92 L 06/30/16 07:32 Weight - most recent: 61.235 kg Lab Results last 24 hrs: Laboratory Results - last 24 hr 06/30/16 06/30/16 Range/Units 08:35 08:35 WBC 9.8 (4.0-11.0) K/uL RBC 4.09 (3.80-5.80) M/uL Hgb 11.5 (11.5-16.5) g/dL Hct 38.3 (37.0-47.0) % MCV 94 (76-96) fL MCH 28.1 (27.0-32.0) pg MCHC 30.0 L (31.0-35.0) g/dL RDW 15.1 (11.0-16.0) % Plt Count 391 D (150-500) K/uL MPV 9.6 (6.0-10.0) fL Neut % (Auto) 92.9 H (45.0-70.0) % Lymph % (Auto) 3.8 L (20.0-40.0) % Leon % (Auto) 3.1 (3.0-10.0) % Eos % (Auto) 0.0 L (1.0-5.0) % Baso % (Auto) 0.2 (0.0-0.5) % Neut # (Auto) 9.06 H (2.00-7.50) K/uL Lymph # (Auto) 0.37 L (1.50-4.00) K/uL Leon # (Auto) 0.30 (0.20-0.80) K/uL Eos # (Auto) 0.00 L (0.04-0.40) K/uL Baso # (Auto) 0.02 (0.02-0.10) K/uL Sodium 145 (136-145) mmol/L Potassium 3.8 (3.5-5.1) mmol/L Chloride 105 (98-107) mmol/L Carbon Dioxide 36.7 H D (21.0-32.0) mmol/L Anion Gap 7.1 (5.0-15.0) mmol/L BUN 26 D (8-26) mg/dL Creatinine 0.89 D (0.55-1.02) mg/dL Est Cr Clr Drug Dosing 39.21 mL/min Estimated GFR (MDRD) > 60 (>60) MLS/MIN BUN/Creatinine Ratio 29.2 H (6-25) Glucose 141 H (74-100) mg/dL Calcium 8.8 (8.5-10.1) mg/dL Total Bilirubin 0.3 D (0.0-1.0) mg/dL AST 82 H (15-37) U/L ALT 122 H (12-78) U/L Alkaline Phosphatase 61 (46-116) U/L Total Protein 6.5 (6.4-8.2) g/dL Albumin 3.3 L (3.4-5.0) g/dL Globulin 3.2 (2.2-4.2) g/dL Albumin/Globulin Ratio 1.0 (0.8-2.0) Ayo Results last 24 hrs: Microbiology 06/26/16 12:30 Aerobic Blood Culture - Preliminary Blood NO GROWTH AFTER 3 DAYS Anaerobic Blood Culture - Preliminary NO GROWTH AFTER 3 DAYS 06/26/16 11:45 Aerobic Blood Culture - Preliminary Blood NO GROWTH AFTER 3 DAYS Anaerobic Blood Culture - Preliminary NO GROWTH AFTER 3 DAYS Med Orders - Current: Current Medications Acetaminophen (Tylenol) 650 mg PO Q6H PRN PRN Reason: Headache Last Admin: 06/29/16 13:34 Dose: 650 mg Amoxicillin/Clavulanate Potassium (Augmentin 875 Mg/125 Mg) 1 tab PO Q12HR AISSATOU Last Admin: 06/30/16 07:29 Dose: 1 tab Ascorbic Acid (Vitamin C) 500 mg PO 1200 [facility] Last Admin: 06/29/16 13:00 Dose: 500 mg Budesonide (Pulmicort) 0.5 mg INH BID [facility] Last Admin: 06/30/16 07:28 Dose: 0.5 mg Calamine/Phenol (Calmoseptine) 0 gm TOP QID PRN PRN Reason: Inflammation Last Admin: 06/28/16 18:00 Dose: 1 applic Cetirizine HCl (Zyrtec) 10 mg PO 1200 [facility] Last Admin: 06/29/16 13:34 Dose: 10 mg Fluticasone Propionate (Flovent Hfa 220 Mcg) 0 gm INH BID [facility] Last Admin: 06/30/16 07:30 Dose: 2 puff Furosemide (Lasix) 40 mg PO DAILY [facility] Last Admin: 06/30/16 07:29 Dose: 40 mg Ipratropium [place] (Atrovent) 0.5 mg NEB Q8HR [facility] Last Admin: 06/30/16 06:32 Dose: 0.5 mg Lactobacillus Acidophilus (Acidolphilus Extra Strength) 1 tab PO 1200 [facility] Last Admin: 06/29/16 13:36 Dose: 1 tab Levothyroxine Sodium (Synthroid) 100 mcg PO ACBREAKFAST [facility] Last Admin: 06/30/16 06:32 Dose: 100 mcg Loperamide HCl (Imodium) 2 mg PO Q4H PRN PRN Reason: Diarrhea Last Admin: 06/27/16 11:53 Dose: 2 mg Lorazepam (Ativan) 0.25 mg IVPUSH Q4H PRN PRN Reason: shortness of breath/anxiety Last Admin: 06/29/16 02:35 Dose: 0.25 mg Melatonin (Melatonin) 3 mg PO BEDTIME [facility] Last Admin: 06/29/16 19:56 Dose: 3 mg Methylprednisolone Sodium Succinate (Solu-Medrol) 125 mg IM Q8H [facility] Last Admin: 06/30/16 03:15 Dose: 125 mg Metoprolol Succinate (Toprol Xl) 25 mg PO 1200 [facility] Last Admin: 06/29/16 13:00 Dose: 25 mg Montelukast Sodium (Singulair) 10 mg PO 1200 [facility] Last Admin: 06/29/16 13:34 Dose: 10 mg Morphine Sulfate (Morphine) 1 mg SUBCUT Q2H PRN PRN Reason: Dyspnea Last Admin: 06/30/16 06:34 Dose: 1 mg (Calcium Carb/ (Magnesium/Zinc) 1 tab PO 1200 [facility] Last Admin: 06/29/16 13:31 Dose: 1 tab Cyanocobalamin 1 each PO 1200 [facility] Last Admin: 06/29/16 13:30 Dose: 1 each Gentle Iron 56 mg PO DAILY [facility] Last Admin: 06/30/16 07:32 Dose: 56 mg Vitamin B6 100mg 1 each PO 1200 [facility] Last Admin: 06/29/16 13:32 Dose: 1 each Vitamin D3/Calcium 1 each PO 1200 [facility] Last Admin: 06/29/16 13:31 Dose: 1 each Vitamin B Supplement 1 each PO 1200 [facility] Last Admin: 06/29/16 13:32 Dose: 1 each Nystatin (Nystatin Crm) 1 gm TOP TID PRN PRN Reason: YEAST UNDER BREASTS NEEDED Omeprazole (Omeprazole) 20 mg PO DAILY [facility] Last Admin: 06/30/16 07:29 Dose: 20 mg Ondansetron HCl (Zofran) 4 mg IV Q4H PRN PRN Reason: Nausea/Vomiting Last Admin: 06/29/16 07:54 Dose: 4 mg Sodium Chloride (Saline Flush) 10 ml FLUSH ASDIRECTED PRN PRN Reason: Keep Vein Open Last Admin: 06/29/16 07:54 Dose: 10 ml Vancomycin HCl (Vancomycin) 0.125 gm PO QID [facility] Stop: 07/11/16 16:01 Last Admin: 06/30/16 07:26 Dose: 0.125 gm Discontinued Medications Albuterol/Ipratropium (Duoneb 3.0-0.5 Mg/3 Ml) 3 ml NEB QID [facility] Last Admin: 06/26/16 10:10 Dose: 3 ml Albuterol/Ipratropium (Duoneb 3.0-0.5 Mg/3 Ml) 3 ml INH ONETIME ONE Stop: 06/27/16 11:31 Last Admin: 06/27/16 11:30 Dose: 3 ml Amoxicillin/Clavulanate Potassium (Augmentin 875 Mg/125 Mg) Confirm Administered Dose 1 tab .ROUTE .STK-MED ONE Stop: 06/29/16 16:17 Last Admin: 06/29/16 16:21 Dose: 1 tab Ferrous Gluconate (Ferrous Gluconate) Confirm Administered Dose 648 mg .ROUTE .STK-MED ONE Stop: 06/28/16 08:27 Last Admin: 06/28/16 09:49 Dose: Not Given Ferrous Gluconate (Ferrous Gluconate) Confirm Administered Dose 648 mg .ROUTE .STK-MED ONE Stop: 06/28/16 08:37 Last Admin: 06/28/16 09:49 Dose: Not Given Ferrous Sulfate (Ferrous Sulfate) Confirm Administered Dose 325 mg .ROUTE .STK- MED ONE Stop: 06/28/16 08:01 Last Admin: 06/28/16 09:48 Dose: Not Given Furosemide (Lasix) 20 mg PO DAILY PRN PRN Reason: EDEMA Last Admin: 06/28/16 07:56 Dose: 20 mg Furosemide (Lasix) 40 mg PO DAILY PRN PRN Reason: EDEMA Piperacillin Sod/Tazobactam (Sod 4.5 gm/ Sodium Chloride) 100 mls @ 200 mls/hr IV Q6H [facility] Last Admin: 06/29/16 18:16 Dose: Not Given Ipratropium [place] (Atrovent) 0.5 mg INH Q6H [facility] Last Admin: 06/28/16 20:08 Dose: 0.5 mg Levalbuterol HCl (Xopenex) 1.25 mg INH ONETIME ONE Stop: 06/26/16 12:31 Last Admin: 06/26/16 12:30 Dose: 1.25 mg Levalbuterol HCl (Xopenex) 1.25 mg INH 0800,1400,2000 [facility] Last Admin: 06/28/16 14:20 Dose: 1.25 mg Melatonin (Melatonin) Confirm Administered Dose 3 mg .ROUTE .STK-MED ONE Stop: 06/29/16 03:05 Last Admin: 06/29/16 05:08 Dose: Not Given Methylprednisolone Sodium Succinate (Solu-Medrol) 125 mg IVPUSH Q8H [facility] Last Admin: 06/29/16 20:30 Dose: Not Given Methylprednisolone Sodium Succinate (Solu-Medrol) Confirm Administered Dose 125 mg .ROUTE .STK-MED ONE Stop: 06/26/16 10:31 Last Admin: 06/26/16 13:03 Dose: Not Given Morphine Sulfate (Morphine) 1 mg IVPUSH ONETIME ONE Stop: 06/27/16 11:33 Last Admin: 06/27/16 11:51 Dose: 1 mg Morphine Sulfate (Morphine) Confirm Administered Dose 2 mg .ROUTE .STK-MED ONE Stop: 06/27/16 11:40 Last Admin: 06/27/16 12:09 Dose: Not Given Morphine Sulfate (Morphine) 1 mg IVPUSH Q2H PRN PRN Reason: Anxiety Last Admin: 06/29/16 07:56 Dose: 1 mg - Exam Quality Assessment: supplemental oxygen General: alert, oriented, cooperative HEENT: Pupils equal, Pupils reactive Neck: supple Lungs: Decreased breath sounds, Wheezing Cardiovascular: Regular Rhythm, Tachycardia Abdomen: bowel sounds present, soft, no tenderness Back Exam: normal inspection Extremities: no edema Peripheral Pulses: 2+: dorsalis pedis (L), dorsalis pedis (R) Skin: warm, dry, intact Neurological: no new focal deficit Psy/Mental Status: alert, anxious - Problem List & Annotations (1) Clostridium difficile diarrhea SNOMED Code(s): 342878218, 232429886 Code(s): A04.7 - ENTEROCOLITIS DUE TO CLOSTRIDIUM DIFFICILE Status: Acute Priority: High Current Visit: Yes (2) CHF (congestive heart failure) SNOMED Code(s): 68960745 Code(s): I50.9 - HEART FAILURE, UNSPECIFIED Status: Chronic Priority: Medium Current Visit: Yes Qualifiers: Congestive heart failure type: unspecified congestive heart failure type Congestive heart failure chronicity: chronic Qualified Code(s): I50.9 - Heart failure, unspecified (3) COPD exacerbation SNOMED Code(s): 162056172, 447746686 Code(s): J44.1 - CHRONIC OBSTRUCTIVE PULMONARY DISEASE W (ACUTE) EXACERBATION Status: Acute Priority: High Current Visit: Yes (4) Colon cancer SNOMED Code(s): 759424531 Code(s): C18.9 - MALIGNANT NEOPLASM OF COLON, UNSPECIFIED Status: Chronic Priority: Medium Current Visit: Yes Qualifiers: Colon location: unspecified part of colon Qualified Code(s): C18.9 - Malignant neoplasm of colon, unspecified (5) Hypothyroidism SNOMED Code(s): 64218190 Code(s): E03.9 - HYPOTHYROIDISM, UNSPECIFIED Status: Chronic Priority: Medium Current Visit: Yes Qualifiers: Hypothyroidism type: acquired Qualified Code(s): E03.9 - Hypothyroidism, unspecified (6) Pneumonia SNOMED Code(s): 038045932 Code(s): J18.9 - PNEUMONIA, UNSPECIFIED ORGANISM Status: Acute Priority: High Current Visit: Yes Qualifiers: Pneumonia type: due to unspecified organism Laterality: right Lung location: lower lobe of lung Qualified Code(s): J18.1 - Lobar pneumonia, unspecified organism - Problem List Review Problem List Initiated/Reviewed/Updated: Yes - My Orders Last 24 Hours: My Active Orders 06/29/16 11:00 methylPREDNISolone Sod Succ [Solu-MEDROL] 125 mg IM Q8H - Plan Plan:: Pneumonia: Patient to continue on current IV antibiotics for pneumonia. Pending blood cultures. Clostridium Difficile diarrhea: Treatment to start with oral Vancomycin for 14 days. Contact isolation protocol. COPD exacerbation: Continue adjustment of nebulizers and inhalers with steroids. Monitor status and oxygen. Patient appears anxious which causes increasing feeling of sob despite good oxygenation. CHF: Chronic, no JVD, continue monitoring fluid status. 06/30/16 Pneumonia - continue with current antibiotics. F/u WBC as needed although patient is on steroids. C. Diff diarrhea - Continue with vancomycin course. COPD- exacerbation - Taper methylprednisolone to 125 BID and monitor. Patient is having a tough time breathing albeit improved. Patient counseled extensively that her saturation is good ranging from 90-94 and does not have to be 96+. CHF - chronic - f/u as needed. Continue current management.
[2016-06-30] MEDS: VITAMIN B6 100 MG PO SCH (11:26)
[2016-06-30] MEDS: [UNRECOGNIZED DRUG - OTHER] PO SCH (11:26)
[2016-06-30] MEDS: CALCIUM CARB PO SCH (11:26)
[2016-06-30] MEDS: Lactobacillus Acidophilus/Lactobacillus Sporogenes (Probiotic) Tab PO SCH (11:26)
[2016-06-30] MEDS: MAGNESIUM PO SCH (11:26)
[2016-06-30] MEDS: ZINC PO SCH (11:26)
[2016-06-30] MEDS: VITAMIN D3/CALCIUM PO SCH (11:27)
[2016-06-30] MEDS: Ascorbic Acid 500 MG Tab PO SCH (11:27)
[2016-06-30] MEDS: Acetaminophen 325 MG Tab PO PRN (11:30)
[2016-06-30] MEDS: Metoprolol Succinate 25 MG Tab.ER PO SCH (11:36)
[2016-06-30] MEDS: Montelukast 10 MG Tab PO SCH (11:36)
[2016-06-30] MEDS: Cetirizine 10 MG Tab PO SCH (11:36)
[2016-06-30] MEDS: Menthol/Zinc Oxide Ointment 113 GM Tube TOP PRN ×2 (12:42→20:54)
[2016-06-30] MEDS: LORazepam 2 MG/ML MDV IVPUSH PRN ×2 (12:44→17:41)
[2016-06-30] MEDS ORDERED: methylPREDNISolone Sodium Succinate 125 MG/2 ML SDV IM SCH (14:00)
[2016-06-30] MEDS ORDERED: XOPENEX HFA INH PRN (15:21)
[2016-06-30] MEDS: Sodium Chloride 0.9% 10 ML Syringe FLUSH PRN (15:48)
[2016-06-30] MEDS: Melatonin 3 MG Tab PO SCH (20:10)
[2016-07-01] MEDS: Morphine 2 MG/ML Syringe SUBCUT PRN (01:30)
[2016-07-01] MEDS: LORazepam 2 MG/ML MDV IVPUSH PRN ×2 (02:56→10:25)
[2016-07-01] MEDS: Ipratropium 0.02% 0.5 MG/2.5 ML Neb Soln NEB SCH ×5 (06:39→21:11)
[2016-07-01] MEDS: Levothyroxine 100 MCG Tab PO SCH (06:42)
[2016-07-01] MEDS: methylPREDNISolone Sodium Succinate 125 MG/2 ML SDV IVPUSH SCH ×2 (09:00→21:11)
[2016-07-01] MEDS: Budesonide 0.5 MG/2 ML Neb Susp INH SCH ×2 (09:21→19:34)
[2016-07-01] MEDS: Vancomycin 1 GM SDV PO SCH ×5 (09:23→19:34)
[2016-07-01] MEDS: Omeprazole 20 MG Cap.CR PO SCH (09:25)
[2016-07-01] MEDS: Furosemide 20 MG Tab PO SCH (09:25)
[2016-07-01] MEDS: GENTLE IRON PO SCH (09:25)
[2016-07-01] MEDS: Amoxicillin/Clavulanate K 875-125 MG Tab PO SCH ×4 (09:26→19:33)
[2016-07-01] MEDS: Morphine 2 MG/ML Syringe IVPUSH SCH ×9 (09:29→23:20)
[2016-07-01] MEDS: Sodium Chloride 0.9% 10 ML Syringe FLUSH PRN ×2 (09:39→16:14)
[2016-07-01] MEDS: Fluticasone Propionate 220 MCG/Puff 12 GM Inhaler INH SCH ×3 (09:40→19:34)
[2016-07-01] MEDS: XOPENEX HFA INH PRN ×3 (09:50→19:00)
[2016-07-01] MEDS: Menthol/Zinc Oxide Ointment 113 GM Tube TOP PRN ×2 (10:33→16:05)
[2016-07-01] MEDS: Ascorbic Acid 500 MG Tab PO SCH (12:25)
[2016-07-01] MEDS: MAGNESIUM PO SCH (12:26)
[2016-07-01] MEDS: CALCIUM CARB PO SCH (12:26)
[2016-07-01] MEDS: ZINC PO SCH (12:26)
[2016-07-01] MEDS: VITAMIN D3/CALCIUM PO SCH (12:27)
[2016-07-01] MEDS: [UNRECOGNIZED DRUG - OTHER] PO SCH (12:27)
[2016-07-01] MEDS: VITAMIN B6 100 MG PO SCH (12:27)
[2016-07-01] MEDS: methylPREDNISolone Sodium Succinate 125 MG/2 ML SDV IM SCH (12:29)
[2016-07-01] MEDS: Lactobacillus Acidophilus/Lactobacillus Sporogenes (Probiotic) Tab PO SCH (13:33)
[2016-07-01] MEDS: Montelukast 10 MG Tab PO SCH (13:33)
[2016-07-01] MEDS: Cetirizine 10 MG Tab PO SCH (13:33)
[2016-07-01] MEDS ORDERED: Morphine 2 MG/ML Syringe ONE (13:46)
[2016-07-01] MEDS: Metoprolol Succinate 25 MG Tab.ER PO SCH (14:00)
[2016-07-01] MEDS: Melatonin 3 MG Tab PO SCH ×2 (18:54→19:34)
[2016-07-02] MEDS: XOPENEX HFA INH PRN ×2 (01:08→13:00)
[2016-07-02] MEDS: LORazepam 2 MG/ML MDV IVPUSH PRN (01:08)
[2016-07-02] MEDS: Morphine 2 MG/ML Syringe IVPUSH SCH ×3 (01:46→06:01)
[2016-07-02] MEDS: Ondansetron 4 MG/2 ML SDV IV PRN (02:21)
[2016-07-02] MEDS: Sodium Chloride 0.9% 10 ML Syringe FLUSH PRN (02:23)
[2016-07-02] MEDS: Levothyroxine 100 MCG Tab PO SCH ×2 (05:52→06:01)
[2016-07-02] MEDS: Ipratropium 0.02% 0.5 MG/2.5 ML Neb Soln NEB SCH (05:52)
[2016-07-02] MEDS: GENTLE IRON PO SCH (09:00)
[2016-07-02] MEDS: Vancomycin 1 GM SDV PO SCH ×2 (09:29→12:31)
[2016-07-02] MEDS: Omeprazole 20 MG Cap.CR PO SCH (09:29)
[2016-07-02] MEDS: Amoxicillin/Clavulanate K 875-125 MG Tab PO SCH (09:30)
[2016-07-02] MEDS: Furosemide 20 MG Tab PO SCH (09:33)
--- NOTE | 2016-07-02 09:36 | PCM.PN ---
- General Info Date of Service: 07/01/16 Subjective Update: Patient continues to have complaints of sob. Her BMs have improved with daily stools only but continue to be loose and dark. Patient has a decreased appetite. - Review of Systems General: Reports: Weakness HEENT: Reports: no symptoms Pulmonary: Reports: shortness of breath Cardiovascular: Reports: No Symptoms Gastrointestinal: Reports: Other (loose stools but improving) Genitourinary: Reports: incontinence Musculoskeletal: Reports: no symptoms Skin: Reports: no symptoms Neurological: Reports: Weakness Psychiatric: Reports: anxiety - Patient Data Vitals - most recent: Last Vital Signs Temp 36.1 C 07/01/16 23:21 Pulse 95 07/01/16 23:21 Resp 18 07/01/16 23:21 BP 149/71 H 07/01/16 23:21 Pulse Ox 91 L 07/02/16 05:01 Weight - most recent: 61.235 kg I&O - last 24 hours: Intake & Output 07/01/16 07/02/16 07/02/16 22:59 06:59 14:59 Intake Total 400 Balance 400 Lab Results last 24 hrs: Laboratory Results - last 24 hr 07/01/16 07/01/16 07/02/16 Range/Units 09:10 09:10 06:55 WBC 9.7 8.3 (4.0-11.0) K/uL RBC 4.15 4.18 (3.80-5.80) M/uL Hgb 11.9 11.9 (11.5-16.5) g/dL Hct 38.4 38.3 (37.0-47.0) % MCV 93 92 (76-96) fL MCH 28.7 28.5 (27.0-32.0) pg MCHC 31.0 31.1 (31.0-35.0) g/dL RDW 14.9 14.6 (11.0-16.0) % Plt Count 343 394 (150-500) K/uL MPV 9.5 9.6 (6.0-10.0) fL Neut % (Auto) 88.3 H 91.4 H (45.0-70.0) % Lymph % (Auto) 3.1 L 2.7 L (20.0-40.0) % Hamlin % (Auto) 8.5 5.8 (3.0-10.0) % Eos % (Auto) 0.0 L 0.0 L (1.0-5.0) % Baso % (Auto) 0.1 0.1 (0.0-0.5) % Neut # (Auto) 8.56 H 7.59 H (2.00-7.50) K/uL Lymph # (Auto) 0.30 L 0.22 L (1.50-4.00) K/uL Hamlin # (Auto) 0.82 H 0.48 (0.20-0.80) K/uL Eos # (Auto) 0.00 L 0.00 L (0.04-0.40) K/uL Baso # (Auto) 0.01 L 0.01 L (0.02-0.10) K/uL ABG pH (7.35-7.45) ABG pCO2 (35-45) mmHg ABG pO2 (80-105) mmHg ABG HCO3 (22-26) mmol/L ABG O2 Saturation (95-98) % ABG Base Excess (-2-2) O2 Delivery Device Oxygen Flow Rate L Sodium 144 (136-145) mmol/L Potassium 4.1 (3.5-5.1) mmol/L Chloride 102 (98-107) mmol/L Carbon Dioxide 38.7 H (21.0-32.0) mmol/L Anion Gap 7.4 (5.0-15.0) mmol/L BUN 23 (8-26) mg/dL Creatinine 0.66 D (0.55-1.02) mg/dL Est Cr Clr Drug Dosing 52.87 mL/min Estimated GFR (MDRD) > 60 (>60) MLS/MIN BUN/Creatinine Ratio 34.8 H (6-25) Glucose 132 H (74-100) mg/dL Calcium 8.8 (8.5-10.1) mg/dL Total Bilirubin 0.4 D (0.0-1.0) mg/dL AST 45 H (15-37) U/L ALT 92 H (12-78) U/L Alkaline Phosphatase 62 (46-116) U/L Total Protein 6.5 (6.4-8.2) g/dL Albumin 3.2 L (3.4-5.0) g/dL Globulin 3.3 (2.2-4.2) g/dL Albumin/Globulin Ratio 1.0 (0.8-2.0) 07/02/16 07/02/16 Range/Units 06:55 06:55 WBC (4.0-11.0) K/uL RBC (3.80-5.80) M/uL Hgb (11.5-16.5) g/dL Hct (37.0-47.0) % MCV (76-96) fL MCH (27.0-32.0) pg MCHC (31.0-35.0) g/dL RDW (11.0-16.0) % Plt Count (150-500) K/uL MPV (6.0-10.0) fL Neut % (Auto) (45.0-70.0) % Lymph % (Auto) (20.0-40.0) % Hamlin % (Auto) (3.0-10.0) % Eos % (Auto) (1.0-5.0) % Baso % (Auto) (0.0-0.5) % Neut # (Auto) (2.00-7.50) K/uL Lymph # (Auto) (1.50-4.00) K/uL Hamlin # (Auto) (0.20-0.80) K/uL Eos # (Auto) (0.04-0.40) K/uL Baso # (Auto) (0.02-0.10) K/uL ABG pH 7.29 L (7.35-7.45) ABG pCO2 97 H* (35-45) mmHg ABG pO2 68 L (80-105) mmHg ABG HCO3 47 H (22-26) mmol/L ABG O2 Saturation 89 L (95-98) % ABG Base Excess 20 H (-2-2) O2 Delivery Device Nasal cannula Oxygen Flow Rate 0 L Sodium 147 H (136-145) mmol/L Potassium 3.8 (3.5-5.1) mmol/L Chloride 99 (98-107) mmol/L Carbon Dioxide 44.7 H (21.0-32.0) mmol/L Anion Gap 7.1 (5.0-15.0) mmol/L BUN 22 (8-26) mg/dL Creatinine 0.71 (0.55-1.02) mg/dL Est Cr Clr Drug Dosing 49.15 mL/min Estimated GFR (MDRD) > 60 (>60) MLS/MIN BUN/Creatinine Ratio 31.0 H (6-25) Glucose 152 H (74-100) mg/dL Calcium 8.9 (8.5-10.1) mg/dL Total Bilirubin 0.7 D (0.0-1.0) mg/dL AST 70 H (15-37) U/L ALT 125 H (12-78) U/L Alkaline Phosphatase 65 (46-116) U/L Total Protein 6.6 (6.4-8.2) g/dL Albumin 3.3 L (3.4-5.0) g/dL Globulin 3.3 (2.2-4.2) g/dL Albumin/Globulin Ratio 1.0 (0.8-2.0) Ayo Results last 24 hrs: Microbiology 06/26/16 12:30 Aerobic Blood Culture - Final Blood NO GROWTH AFTER 5 DAYS Anaerobic Blood Culture - Final NO GROWTH AFTER 5 DAYS 06/26/16 11:45 Aerobic Blood Culture - Final Blood NO GROWTH AFTER 5 DAYS Anaerobic Blood Culture - Final NO GROWTH AFTER 5 DAYS Med Orders - Current: Current Medications Acetaminophen (Tylenol) 650 mg PO Q6H PRN PRN Reason: Headache Last Admin: 06/30/16 11:30 Dose: 650 mg Amoxicillin/Clavulanate Potassium (Augmentin 875 Mg/125 Mg) 1 tab PO Q12HR [facility] Last Admin: 07/01/16 19:33 Dose: Not Given Ascorbic Acid (Vitamin C) 500 mg PO 1200 [facility] Last Admin: 07/01/16 12:25 Dose: Not Given Budesonide (Pulmicort) 0.5 mg INH BID [facility] Last Admin: 07/01/16 19:34 Dose: Not Given Calamine/Phenol (Calmoseptine) 0 gm TOP QID PRN PRN Reason: Inflammation Last Admin: 07/01/16 16:05 Dose: 1 applic Cetirizine HCl (Zyrtec) 10 mg PO 1200 [facility] Last Admin: 07/01/16 13:33 Dose: Not Given Fluticasone Propionate (Flovent Hfa 220 Mcg) 0 gm INH BID [facility] Last Admin: 07/01/16 19:34 Dose: Not Given Furosemide (Lasix) 40 mg PO DAILY [facility] Last Admin: 07/01/16 09:25 Dose: 40 mg Ipratropium Lyons (Atrovent) 0.5 mg NEB Q8HR [facility] Last Admin: 07/02/16 05:52 Dose: 0.5 mg Lactobacillus Acidophilus (Acidolphilus Extra Strength) 1 tab PO 1200 [facility] Last Admin: 07/01/16 13:33 Dose: Not Given Levothyroxine Sodium (Synthroid) 100 mcg PO ACBREAKFAST [facility] Last Admin: 07/02/16 06:01 Dose: Not Given Loperamide HCl (Imodium) 2 mg PO Q4H PRN PRN Reason: Diarrhea Last Admin: 06/27/16 11:53 Dose: 2 mg Melatonin (Melatonin) 3 mg PO BEDTIME [facility] Last Admin: 07/01/16 19:34 Dose: Not Given Methylprednisolone Sodium Succinate (Solu-Medrol) 125 mg IVPUSH Q12H [facility] Last Admin: 07/01/16 21:11 Dose: 125 mg Metoprolol Succinate (Toprol Xl) 25 mg PO 1200 [facility] Last Admin: 07/01/16 14:00 Dose: 25 mg Montelukast Sodium (Singulair) 10 mg PO 1200 [facility] Last Admin: 07/01/16 13:33 Dose: Not Given (Calcium Carb/ (Magnesium/Zinc) 1 tab PO 1200 [facility] Last Admin: 07/01/16 12:26 Dose: Not Given Cyanocobalamin 1 each PO 1200 [facility] Last Admin: 07/01/16 12:26 Dose: Not Given Gentle Iron 56 mg PO DAILY [facility] Last Admin: 07/01/16 09:25 Dose: 56 mg Vitamin B6 100mg 1 each PO 1200 [facility] Last Admin: 07/01/16 12:27 Dose: Not Given Vitamin D3/Calcium 1 each PO 1200 [facility] Last Admin: 07/01/16 12:27 Dose: Not Given Vitamin B Supplement 1 each PO 1200 [facility] Last Admin: 07/01/16 12:27 Dose: Not Given Xopenex Hfa 1 each INH ASDIRECTED PRN PRN Reason: COPD Last Admin: 07/02/16 01:08 Dose: 1 each Nystatin (Nystatin Crm) 1 gm TOP TID PRN PRN Reason: YEAST UNDER BREASTS NEEDED Omeprazole (Omeprazole) 20 mg PO DAILY [facility] Last Admin: 07/01/16 09:25 Dose: 20 mg Ondansetron HCl (Zofran) 4 mg IV Q4H PRN PRN Reason: Nausea/Vomiting Last Admin: 07/02/16 02:21 Dose: 4 mg Sodium Chloride (Saline Flush) 10 ml FLUSH ASDIRECTED PRN PRN Reason: Keep Vein Open Last Admin: 07/02/16 02:23 Dose: 10 ml Vancomycin HCl (Vancomycin) 0.125 gm PO QID [facility] Stop: 07/11/16 16:01 Last Admin: 07/01/16 19:34 Dose: Not Given Discontinued Medications Albuterol/Ipratropium (Duoneb 3.0-0.5 Mg/3 Ml) 3 ml NEB QID [facility] Last Admin: 06/26/16 10:10 Dose: 3 ml Albuterol/Ipratropium (Duoneb 3.0-0.5 Mg/3 Ml) 3 ml INH ONETIME ONE Stop: 06/27/16 11:31 Last Admin: 06/27/16 11:30 Dose: 3 ml Amoxicillin/Clavulanate Potassium (Augmentin 875 Mg/125 Mg) Confirm Administered Dose 1 tab .ROUTE .STK-MED ONE Stop: 06/29/16 16:17 Last Admin: 06/29/16 16:21 Dose: 1 tab Ferrous Gluconate (Ferrous Gluconate) Confirm Administered Dose 648 mg .ROUTE .STK-MED ONE Stop: 06/28/16 08:27 Last Admin: 06/28/16 09:49 Dose: Not Given Ferrous Gluconate (Ferrous Gluconate) Confirm Administered Dose 648 mg .ROUTE .STK-MED ONE Stop: 06/28/16 08:37 Last Admin: 06/28/16 09:49 Dose: Not Given Ferrous Sulfate (Ferrous Sulfate) Confirm Administered Dose 325 mg .ROUTE .STK- MED ONE Stop: 06/28/16 08:01 Last Admin: 06/28/16 09:48 Dose: Not Given Furosemide (Lasix) 20 mg PO DAILY PRN PRN Reason: EDEMA Last Admin: 06/28/16 07:56 Dose: 20 mg Furosemide (Lasix) 40 mg PO DAILY PRN PRN Reason: EDEMA Piperacillin Sod/Tazobactam (Sod 4.5 gm/ Sodium Chloride) 100 mls @ 200 mls/hr IV Q6H [facility] Last Admin: 06/29/16 18:16 Dose: Not Given Ipratropium Lyons (Atrovent) 0.5 mg INH Q6H [facility] Last Admin: 06/28/16 20:08 Dose: 0.5 mg Levalbuterol HCl (Xopenex) 1.25 mg INH ONETIME ONE Stop: 06/26/16 12:31 Last Admin: 06/26/16 12:30 Dose: 1.25 mg Levalbuterol HCl (Xopenex) 1.25 mg INH 0800,1400,2000 [facility] Last Admin: 06/28/16 14:20 Dose: 1.25 mg Lorazepam (Ativan) 0.25 mg IVPUSH Q4H PRN PRN Reason: shortness of breath/anxiety Last Admin: 07/02/16 01:08 Dose: 0.25 mg Melatonin (Melatonin) Confirm Administered Dose 3 mg .ROUTE .STK-MED ONE Stop: 06/29/16 03:05 Last Admin: 06/29/16 05:08 Dose: Not Given Methylprednisolone Sodium Succinate (Solu-Medrol) 125 mg IVPUSH Q8H [facility] Last Admin: 06/29/16 20:30 Dose: Not Given Methylprednisolone Sodium Succinate (Solu-Medrol) Confirm Administered Dose 125 mg .ROUTE .STK-MED ONE Stop: 06/26/16 10:31 Last Admin: 06/26/16 13:03 Dose: Not Given Methylprednisolone Sodium Succinate (Solu-Medrol) 125 mg IM Q8H [facility] Last Admin: 06/30/16 11:28 Dose: Not Given Methylprednisolone Sodium Succinate (Solu-Medrol) 125 mg IM Q12H [facility] Last Admin: 06/30/16 16:13 Dose: Not Given Methylprednisolone Sodium Succinate (Solu-Medrol) 125 mg IM BID [facility] Last Admin: 07/01/16 12:29 Dose: Not Given Morphine Sulfate (Morphine) 1 mg IVPUSH ONETIME ONE Stop: 06/27/16 11:33 Last Admin: 06/27/16 11:51 Dose: 1 mg Morphine Sulfate (Morphine) Confirm Administered Dose 2 mg .ROUTE .STK-MED ONE Stop: 06/27/16 11:40 Last Admin: 06/27/16 12:09 Dose: Not Given Morphine Sulfate (Morphine) 1 mg IVPUSH Q2H PRN PRN Reason: Anxiety Last Admin: 06/29/16 07:56 Dose: 1 mg Morphine Sulfate (Morphine) 1 mg SUBCUT Q2H PRN PRN Reason: Dyspnea Last Admin: 07/01/16 01:30 Dose: 1 mg Morphine Sulfate (Morphine) 1 mg IVPUSH Q2H [facility] Last Admin: 07/02/16 06:01 Dose: Not Given Morphine Sulfate (Morphine) Confirm Administered Dose 2 mg .ROUTE .STK-MED ONE Stop: 07/01/16 13:47 Last Admin: 07/01/16 14:03 Dose: Not Given Xopenex Hfa 0 - 2 each INH ASDIRECTED PRN PRN Reason: COPD - Exam Quality Assessment: supplemental oxygen (3L) General: alert, oriented, cooperative HEENT: Pupils equal, Pupils reactive, EOMI Neck: supple Lungs: Decreased breath sounds, Rhonchi Cardiovascular: Regular Rhythm, Tachycardia Abdomen: bowel sounds present, soft, no tenderness Extremities: no edema Peripheral Pulses: 1+: dorsalis pedis (L), dorsalis pedis (R) Skin: warm, dry, intact Neurological: no new focal deficit Psy/Mental Status: alert, normal affect, normal mood - Problem List & Annotations (1) Clostridium difficile diarrhea SNOMED Code(s): 849582145, 866254427 Code(s): A04.7 - ENTEROCOLITIS DUE TO CLOSTRIDIUM DIFFICILE Status: Acute Priority: High Current Visit: Yes (2) CHF (congestive heart failure) SNOMED Code(s): 96693116 Code(s): I50.9 - HEART FAILURE, UNSPECIFIED Status: Chronic Priority: Medium Current Visit: Yes Qualifiers: Congestive heart failure type: unspecified congestive heart failure type Congestive heart failure chronicity: chronic Qualified Code(s): I50.9 - Heart failure, unspecified (3) COPD exacerbation SNOMED Code(s): 093653385, 317841427 Code(s): J44.1 - CHRONIC OBSTRUCTIVE PULMONARY DISEASE W (ACUTE) EXACERBATION Status: Acute Priority: High Current Visit: Yes (4) Colon cancer SNOMED Code(s): 747001722 Code(s): C18.9 - MALIGNANT NEOPLASM OF COLON, UNSPECIFIED Status: Chronic Priority: Medium Current Visit: Yes Qualifiers: Colon location: unspecified part of colon Qualified Code(s): C18.9 - Malignant neoplasm of colon, unspecified (5) Hypothyroidism SNOMED Code(s): 04174499 Code(s): E03.9 - HYPOTHYROIDISM, UNSPECIFIED Status: Chronic Priority: Medium Current Visit: Yes Qualifiers: Hypothyroidism type: acquired Qualified Code(s): E03.9 - Hypothyroidism, unspecified (6) Pneumonia SNOMED Code(s): 781828088 Code(s): J18.9 - PNEUMONIA, UNSPECIFIED ORGANISM Status: Resolved Priority: High Current Visit: Yes Qualifiers: Pneumonia type: due to unspecified organism Laterality: right Lung location: lower lobe of lung Qualified Code(s): J18.1 - Lobar pneumonia, unspecified organism - Problem List Review Problem List Initiated/Reviewed/Updated: Yes - My Orders Last 24 Hours: My Active Orders 07/01/16 09:45 methylPREDNISolone Sod Succ [Solu-MEDROL] 125 mg IVPUSH Q12H 07/02/16 09:29 Ready for Discharge [RC] PER UNIT ROUTINE - Plan Plan:: Pneumonia: Patient to continue on current IV antibiotics for pneumonia. Pending blood cultures. Clostridium Difficile diarrhea: Treatment to start with oral Vancomycin for 14 days. Contact isolation protocol. COPD exacerbation: Continue adjustment of nebulizers and inhalers with steroids. Monitor status and oxygen. Patient appears anxious which causes increasing feeling of sob despite good oxygenation. CHF: Chronic, no JVD, continue monitoring fluid status. 06/30/16 Pneumonia - continue with current antibiotics. F/u WBC as needed although patient is on steroids. C. Diff diarrhea - Continue with vancomycin course. COPD- exacerbation - Taper methylprednisolone to 125 BID and monitor. Patient is having a tough time breathing albeit improved. Patient counseled extensively that her saturation is good ranging from 90-94 and does not have to be 96+. CHF - chronic - f/u as needed. Continue current management. 07/01/16 Pneumonia - Normal WBC. No sputum production. We will finish course of augmentin in 3 days. Resolving. C. Diff diarrhea - resolving. We will finish course of Vancomycin. COPD exacerbation - resolving. Patient is near baseline. Counseled on slow taper of steroids and continued breathing treatments. Pulse ox maintaining between 91-94 on 3L . Patient does have drops in saturation when agitated and on exertion. CHF - Chronic - no changes - continue monitoring fluids. Tachycardia - patient is at baseline per patient and family around low 100's. Incontinence - Chronic
--- NOTE | 2016-07-02 09:44 | PCM.DCSUM1 ---
Discharge Summary - Hospital Course Brief History: Patient had some confusion and disorientation this am. It appears to be a combination of sundowning and possible medication side effects. She is resting comfortably and after a f/u exam patient is alert arousable and oriented to place and person but felt it was May 2016. Patient appears to be at baseline after re-examination per the daughter. Patient states she feels tired and sleepy but arousable. - Discharge Data Discharge Date: 07/02/16 Discharge Disposition: DC/Tfer W/I Hosp To Swing 61 Condition: Good - Discharge Diagnosis/Problem(s) (1) Clostridium difficile diarrhea SNOMED Code(s): 856807252, 703581623 ICD Code: A04.7 - ENTEROCOLITIS DUE TO CLOSTRIDIUM DIFFICILE Status: Acute Priority: High Current Visit: Yes (2) CHF (congestive heart failure) SNOMED Code(s): 31547586 ICD Code: I50.9 - HEART FAILURE, UNSPECIFIED Status: Chronic Priority: Medium Current Visit: Yes Qualifiers: Congestive heart failure type: unspecified congestive heart failure type Congestive heart failure chronicity: chronic Qualified Code(s): I50.9 - Heart failure, unspecified (3) COPD exacerbation SNOMED Code(s): 781785786, 170596155 ICD Code: J44.1 - CHRONIC OBSTRUCTIVE PULMONARY DISEASE W (ACUTE) EXACERBATION Status: Acute Priority: High Current Visit: Yes (4) Colon cancer SNOMED Code(s): 851235169 ICD Code: C18.9 - MALIGNANT NEOPLASM OF COLON, UNSPECIFIED Status: Chronic Priority: Medium Current Visit: Yes Qualifiers: Colon location: unspecified part of colon Qualified Code(s): C18.9 - Malignant neoplasm of colon, unspecified (5) Hypothyroidism SNOMED Code(s): 88755540 ICD Code: E03.9 - HYPOTHYROIDISM, UNSPECIFIED Status: Chronic Priority: Medium Current Visit: Yes Qualifiers: Hypothyroidism type: acquired Qualified Code(s): E03.9 - Hypothyroidism, unspecified (6) Pneumonia SNOMED Code(s): 208652567 ICD Code: J18.9 - PNEUMONIA, UNSPECIFIED ORGANISM Status: Resolved Priority: High Current Visit: Yes Qualifiers: Pneumonia type: due to unspecified organism Laterality: right Lung location: lower lobe of lung Qualified Code(s): J18.1 - Lobar pneumonia, unspecified organism - Discharge Plan Home Medications: Home Meds Ascorbic Acid [Vitamin C] 500 mg PO DAILY 06/26/16 [History] Calcium Carb/D3/Magnesium/Zinc [Bogdan Mag Zinc + D3] 1 tab PO DAILY 06/26/16 [ History] Cetirizine [ZyrTEC] 10 mg PO DAILY 06/26/16 [History] Cyanocobalamin/Cobamamide [Cvs B-12 5,000 Mcg Microlozeng] 1 each SL DAILY 06/26 [History] Ferrous Gluconate [Ferate] 480 mg PO DAILY 06/26/16 [History] Fluticasone Propionate [Flovent HFA 220 MCG] 2 puff INH BID 06/26/16 [History] Furosemide 40 mg PO DAILY 06/26/16 [History] Ipratropium [place] 0.2 mg IH Q4H PRN 06/26/16 [History] Levalbuterol Tartrate [Xopenex HFA] 1 puff INH Q4HR PRN 06/26/16 [History] Levothyroxine Sodium [Synthroid] 100 mg PO DAILY 06/26/16 [History] Melatonin 3 mg PO BEDTIME 06/26/16 [History] Metoprolol Succinate [Toprol XL] 25 mg PO DAILY 06/26/16 [History] Montelukast Sodium 10 mg PO DAILY 06/26/16 [History] Omeprazole 20 mg PO DAILY 06/26/16 [History] Patient Handouts: Clostridium Difficile FAQs - [place] Forms: ED Department Discharge Referrals: PCP,Unknown [Primary Care Provider] - - Discharge Summary/Plan Comment DC Time >30 min.: Yes Discharge Summary/Plan Comment: Patient counseled on swing bed admission and discharge from acute care. Patient agreeable to plan and management. Daughter in agreement with plan of care. - Patient Data Vitals - Most Recent: Last Vital Signs Temp 36.1 C 07/01/16 23:21 Pulse 95 07/01/16 23:21 Resp 18 07/01/16 23:21 BP 149/71 H 07/01/16 23:21 Pulse Ox 91 L 07/02/16 05:01 Weight - Most Recent: 61.235 kg I&O - Last 24 hours: Intake & Output 07/01/16 07/02/16 07/02/16 22:59 06:59 14:59 Intake Total 400 Balance 400 Lab Results - Last 24 hrs: Laboratory Results - last 24 hr 07/01/16 07/02/16 07/02/16 Range/Units 09:10 06:55 06:55 WBC 8.3 (4.0-11.0) K/uL RBC 4.18 (3.80-5.80) M/uL Hgb 11.9 (11.5-16.5) g/dL Hct 38.3 (37.0-47.0) % MCV 92 (76-96) fL MCH 28.5 (27.0-32.0) pg MCHC 31.1 (31.0-35.0) g/dL RDW 14.6 (11.0-16.0) % Plt Count 394 (150-500) K/uL MPV 9.6 (6.0-10.0) fL Neut % (Auto) 91.4 H (45.0-70.0) % Lymph % (Auto) 2.7 L (20.0-40.0) % [place] % (Auto) 5.8 (3.0-10.0) % Eos % (Auto) 0.0 L (1.0-5.0) % Baso % (Auto) 0.1 (0.0-0.5) % Neut # (Auto) 7.59 H (2.00-7.50) K/uL Lymph # (Auto) 0.22 L (1.50-4.00) K/uL [place] # (Auto) 0.48 (0.20-0.80) K/uL Eos # (Auto) 0.00 L (0.04-0.40) K/uL Baso # (Auto) 0.01 L (0.02-0.10) K/uL ABG pH 7.29 L (7.35-7.45) ABG pCO2 97 H* (35-45) mmHg ABG pO2 68 L (80-105) mmHg ABG HCO3 47 H (22-26) mmol/L ABG O2 Saturation 89 L (95-98) % ABG Base Excess 20 H (-2-2) O2 Delivery Device Nasal cannula Oxygen Flow Rate 0 L Sodium 144 (136-145) mmol/L Potassium 4.1 (3.5-5.1) mmol/L Chloride 102 (98-107) mmol/L Carbon Dioxide 38.7 H (21.0-32.0) mmol/L Anion Gap 7.4 (5.0-15.0) mmol/L BUN 23 (8-26) mg/dL Creatinine 0.66 D (0.55-1.02) mg/dL Est Cr Clr Drug Dosing 52.87 mL/min Estimated GFR (MDRD) > 60 (>60) MLS/MIN BUN/Creatinine Ratio 34.8 H (6-25) Glucose 132 H (74-100) mg/dL Calcium 8.8 (8.5-10.1) mg/dL Total Bilirubin 0.4 D (0.0-1.0) mg/dL AST 45 H (15-37) U/L ALT 92 H (12-78) U/L Alkaline Phosphatase 62 (46-116) U/L Total Protein 6.5 (6.4-8.2) g/dL Albumin 3.2 L (3.4-5.0) g/dL Globulin 3.3 (2.2-4.2) g/dL Albumin/Globulin Ratio 1.0 (0.8-2.0) /03/08 Range/Units 06:55 WBC (4.0-11.0) K/uL RBC (3.80-5.80) M/uL Hgb (11.5-16.5) g/dL Hct (37.0-47.0) % MCV (76-96) fL MCH (27.0-32.0) pg MCHC (31.0-35.0) g/dL RDW (11.0-16.0) % Plt Count (150-500) K/uL MPV (6.0-10.0) fL Neut % (Auto) (45.0-70.0) % Lymph % (Auto) (20.0-40.0) % [place] % (Auto) (3.0-10.0) % Eos % (Auto) (1.0-5.0) % Baso % (Auto) (0.0-0.5) % Neut # (Auto) (2.00-7.50) K/uL Lymph # (Auto) (1.50-4.00) K/uL [place] # (Auto) (0.20-0.80) K/uL Eos # (Auto) (0.04-0.40) K/uL Baso # (Auto) (0.02-0.10) K/uL ABG pH (7.35-7.45) ABG pCO2 (35-45) mmHg ABG pO2 (80-105) mmHg ABG HCO3 (22-26) mmol/L ABG O2 Saturation (95-98) % ABG Base Excess (-2-2) O2 Delivery Device Oxygen Flow Rate L Sodium 147 H (136-145) mmol/L Potassium 3.8 (3.5-5.1) mmol/L Chloride 99 (98-107) mmol/L Carbon Dioxide 44.7 H (21.0-32.0) mmol/L Anion Gap 7.1 (5.0-15.0) mmol/L BUN 22 (8-26) mg/dL Creatinine 0.71 (0.55-1.02) mg/dL Est Cr Clr Drug Dosing 49.15 mL/min Estimated GFR (MDRD) > 60 (>60) MLS/MIN BUN/Creatinine Ratio 31.0 H (6-25) Glucose 152 H (74-100) mg/dL Calcium 8.9 (8.5-10.1) mg/dL Total Bilirubin 0.7 D (0.0-1.0) mg/dL AST 70 H (15-37) U/L ALT 125 H (12-78) U/L Alkaline Phosphatase 65 (46-116) U/L Total Protein 6.6 (6.4-8.2) g/dL Albumin 3.3 L (3.4-5.0) g/dL Globulin 3.3 (2.2-4.2) g/dL Albumin/Globulin Ratio 1.0 (0.8-2.0) GIAN Results - Last 24 hrs: Microbiology 06/26/16 12:30 Aerobic Blood Culture - Final Blood NO GROWTH AFTER 5 DAYS Anaerobic Blood Culture - Final NO GROWTH AFTER 5 DAYS 06/26/16 11:45 Aerobic Blood Culture - Final Blood NO GROWTH AFTER 5 DAYS Anaerobic Blood Culture - Final NO GROWTH AFTER 5 DAYS Med Orders - Current: Current Medications Acetaminophen (Tylenol) 650 mg PO Q6H PRN PRN Reason: Headache Last Admin: 06/30/16 11:30 Dose: 650 mg Amoxicillin/Clavulanate Potassium (Augmentin 875 Mg/125 Mg) 1 tab PO Q12HR [facility] Last Admin: 07/02/16 09:30 Dose: 1 tab Ascorbic Acid (Vitamin C) 500 mg PO 1200 [facility] Last Admin: 07/01/16 12:25 Dose: Not Given Budesonide (Pulmicort) 0.5 mg INH BID [facility] Last Admin: 07/01/16 19:34 Dose: Not Given Calamine/Phenol (Calmoseptine) 0 gm TOP QID PRN PRN Reason: Inflammation Last Admin: 07/01/16 16:05 Dose: 1 applic Cetirizine HCl (Zyrtec) 10 mg PO 1200 [facility] Last Admin: 07/01/16 13:33 Dose: Not Given Fluticasone Propionate (Flovent Hfa 220 Mcg) 0 gm INH BID [facility] Last Admin: 07/01/16 19:34 Dose: Not Given Furosemide (Lasix) 40 mg PO DAILY [facility] Last Admin: 07/02/16 09:33 Dose: Not Given Ipratropium [place] (Atrovent) 0.5 mg NEB Q8HR [facility] Last Admin: 07/02/16 05:52 Dose: 0.5 mg Lactobacillus Acidophilus (Acidolphilus Extra Strength) 1 tab PO 1200 [facility] Last Admin: 07/01/16 13:33 Dose: Not Given Levothyroxine Sodium (Synthroid) 100 mcg PO ACBREAKFAST [facility] Last Admin: 07/02/16 06:01 Dose: Not Given Loperamide HCl (Imodium) 2 mg PO Q4H PRN PRN Reason: Diarrhea Last Admin: 06/27/16 11:53 Dose: 2 mg Melatonin (Melatonin) 3 mg PO BEDTIME [facility] Last Admin: 07/01/16 19:34 Dose: Not Given Methylprednisolone Sodium Succinate (Solu-Medrol) 125 mg IVPUSH Q12H [facility] Last Admin: 07/01/16 21:11 Dose: 125 mg Metoprolol Succinate (Toprol Xl) 25 mg PO 1200 [facility] Last Admin: 07/01/16 14:00 Dose: 25 mg Montelukast Sodium (Singulair) 10 mg PO 1200 [facility] Last Admin: 07/01/16 13:33 Dose: Not Given (Calcium Carb/ (Magnesium/Zinc) 1 tab PO 1200 [facility] Last Admin: 07/01/16 12:26 Dose: Not Given Cyanocobalamin 1 each PO 1200 [facility] Last Admin: 07/01/16 12:26 Dose: Not Given Gentle Iron 56 mg PO DAILY [facility] Last Admin: 07/01/16 09:25 Dose: 56 mg Vitamin B6 100mg 1 each PO 1200 [facility] Last Admin: 07/01/16 12:27 Dose: Not Given Vitamin D3/Calcium 1 each PO 1200 [facility] Last Admin: 07/01/16 12:27 Dose: Not Given Vitamin B Supplement 1 each PO 1200 [facility] Last Admin: 07/01/16 12:27 Dose: Not Given Xopenex Hfa 1 each INH ASDIRECTED PRN PRN Reason: COPD Last Admin: 07/02/16 01:08 Dose: 1 each Nystatin (Nystatin Crm) 1 gm TOP TID PRN PRN Reason: YEAST UNDER BREASTS NEEDED Omeprazole (Omeprazole) 20 mg PO DAILY [facility] Last Admin: 07/02/16 09:29 Dose: 20 mg Ondansetron HCl (Zofran) 4 mg IV Q4H PRN PRN Reason: Nausea/Vomiting Last Admin: 07/02/16 02:21 Dose: 4 mg Sodium Chloride (Saline Flush) 10 ml FLUSH ASDIRECTED PRN PRN Reason: Keep Vein Open Last Admin: 07/02/16 02:23 Dose: 10 ml Vancomycin HCl (Vancomycin) 0.125 gm PO QID [facility] Stop: 07/11/16 16:01 Last Admin: 07/02/16 09:29 Dose: 0.125 gm Discontinued Medications Albuterol/Ipratropium (Duoneb 3.0-0.5 Mg/3 Ml) 3 ml NEB QID [facility] Last Admin: 06/26/16 10:10 Dose: 3 ml Albuterol/Ipratropium (Duoneb 3.0-0.5 Mg/3 Ml) 3 ml INH ONETIME ONE Stop: 06/27/16 11:31 Last Admin: 06/27/16 11:30 Dose: 3 ml Amoxicillin/Clavulanate Potassium (Augmentin 875 Mg/125 Mg) Confirm Administered Dose 1 tab .ROUTE .STK-MED ONE Stop: 06/29/16 16:17 Last Admin: 06/29/16 16:21 Dose: 1 tab Ferrous Gluconate (Ferrous Gluconate) Confirm Administered Dose 648 mg .ROUTE .STK-MED ONE Stop: 06/28/16 08:27 Last Admin: 06/28/16 09:49 Dose: Not Given Ferrous Gluconate (Ferrous Gluconate) Confirm Administered Dose 648 mg .ROUTE .STK-MED ONE Stop: 06/28/16 08:37 Last Admin: 06/28/16 09:49 Dose: Not Given Ferrous Sulfate (Ferrous Sulfate) Confirm Administered Dose 325 mg .ROUTE .STK- MED ONE Stop: 06/28/16 08:01 Last Admin: 06/28/16 09:48 Dose: Not Given Furosemide (Lasix) 20 mg PO DAILY PRN PRN Reason: EDEMA Last Admin: 06/28/16 07:56 Dose: 20 mg Furosemide (Lasix) 40 mg PO DAILY PRN PRN Reason: EDEMA Piperacillin Sod/Tazobactam (Sod 4.5 gm/ Sodium Chloride) 100 mls @ 200 mls/hr IV Q6H [facility] Last Admin: 06/29/16 18:16 Dose: Not Given Ipratropium [place] (Atrovent) 0.5 mg INH Q6H [facility] Last Admin: 06/28/16 20:08 Dose: 0.5 mg Levalbuterol HCl (Xopenex) 1.25 mg INH ONETIME ONE Stop: 06/26/16 12:31 Last Admin: 06/26/16 12:30 Dose: 1.25 mg Levalbuterol HCl (Xopenex) 1.25 mg INH 0800,1400,2000 [facility] Last Admin: 06/28/16 14:20 Dose: 1.25 mg Lorazepam (Ativan) 0.25 mg IVPUSH Q4H PRN PRN Reason: shortness of breath/anxiety Last Admin: 07/02/16 01:08 Dose: 0.25 mg Melatonin (Melatonin) Confirm Administered Dose 3 mg .ROUTE .STK-MED ONE Stop: 06/29/16 03:05 Last Admin: 06/29/16 05:08 Dose: Not Given Methylprednisolone Sodium Succinate (Solu-Medrol) 125 mg IVPUSH Q8H [facility] Last Admin: 06/29/16 20:30 Dose: Not Given Methylprednisolone Sodium Succinate (Solu-Medrol) Confirm Administered Dose 125 mg .ROUTE .STK-MED ONE Stop: 06/26/16 10:31 Last Admin: 06/26/16 13:03 Dose: Not Given Methylprednisolone Sodium Succinate (Solu-Medrol) 125 mg IM Q8H [facility] Last Admin: 06/30/16 11:28 Dose: Not Given Methylprednisolone Sodium Succinate (Solu-Medrol) 125 mg IM Q12H [facility] Last Admin: 06/30/16 16:13 Dose: Not Given Methylprednisolone Sodium Succinate (Solu-Medrol) 125 mg IM BID [facility] Last Admin: 07/01/16 12:29 Dose: Not Given Morphine Sulfate (Morphine) 1 mg IVPUSH ONETIME ONE Stop: 06/27/16 11:33 Last Admin: 06/27/16 11:51 Dose: 1 mg Morphine Sulfate (Morphine) Confirm Administered Dose 2 mg .ROUTE .STK-MED ONE Stop: 06/27/16 11:40 Last Admin: 06/27/16 12:09 Dose: Not Given Morphine Sulfate (Morphine) 1 mg IVPUSH Q2H PRN PRN Reason: Anxiety Last Admin: 06/29/16 07:56 Dose: 1 mg Morphine Sulfate (Morphine) 1 mg SUBCUT Q2H PRN PRN Reason: Dyspnea Last Admin: 07/01/16 01:30 Dose: 1 mg Morphine Sulfate (Morphine) 1 mg IVPUSH Q2H [facility] Last Admin: 07/02/16 06:01 Dose: Not Given Morphine Sulfate (Morphine) Confirm Administered Dose 2 mg .ROUTE .STK-MED ONE Stop: 07/01/16 13:47 Last Admin: 07/01/16 14:03 Dose: Not Given Xopenex Hfa 0 - 2 each INH ASDIRECTED PRN PRN Reason: COPD *Q Meaningful Use (DIS) - VTE *Q VTE Criteria *Q: - Stroke *Q Stroke Criteria *Q: - AMI *Q AMI Criteria *Q:
[2016-07-02] MEDS ORDERED: Sodium Chloride 0.9% 1,000 ML IV SCH (10:00)
[2016-07-02] MEDS: methylPREDNISolone Sodium Succinate 125 MG/2 ML SDV IVPUSH SCH (12:00)
[2016-07-02] MEDS: Fluticasone Propionate 220 MCG/Puff 12 GM Inhaler INH SCH (12:00)
[2016-07-02] MEDS: Budesonide 0.5 MG/2 ML Neb Susp INH SCH (12:24)
[2016-07-02] MEDS: CALCIUM CARB PO SCH (12:29)
[2016-07-02] MEDS: VITAMIN B6 100 MG PO SCH (12:29)
[2016-07-02] MEDS: ZINC PO SCH (12:29)
[2016-07-02] MEDS: MAGNESIUM PO SCH (12:29)
[2016-07-02] MEDS: VITAMIN D3/CALCIUM PO SCH (12:30)
[2016-07-02] MEDS: [UNRECOGNIZED DRUG - OTHER] PO SCH (12:30)
[2016-07-02] MEDS: Cetirizine 10 MG Tab PO SCH (12:38)
[2016-07-02] MEDS: Ascorbic Acid 500 MG Tab PO SCH (12:38)
[2016-07-02] MEDS: Metoprolol Succinate 25 MG Tab.ER PO SCH (12:38)
[2016-07-02] MEDS: Lactobacillus Acidophilus/Lactobacillus Sporogenes (Probiotic) Tab PO SCH (12:38)
[2016-07-02] MEDS: Montelukast 10 MG Tab PO SCH (12:38)
[2016-07-02 12:42] VITALS: BP 128/64
== END 2016-07-02 11:30 | disposition swing bed (61) | DRG 194 ==
LOC: LB.ED 09:01 → LB.MS 10:18 → UNDOADMIN 10:54 → LB.MS 10:54
PROVIDERS: ADMIT Family Medicine; ATTEND Family Medicine
DX: J18.1 Lobar pneumonia, unspecified organism (principal); J44.1 Chronic obstructive pulmonary disease with (acute) exacerbation; A04.7 Enterocolitis due to Clostridium difficile; C18.9 Malignant neoplasm of colon, unspecified; I50.9 Heart failure, unspecified; Z66 Do not resuscitate; R19.7 Diarrhea, unspecified; E03.9 Hypothyroidism, unspecified; F41.9 Anxiety disorder, unspecified; R32 Unspecified urinary incontinence; Z88.1 Allergy status to other antibiotic agents; Z91.018 Allergy to other foods; Z88.8 Allergy status to other drugs, medicaments and biological substances
CPT/HCPCS: 36415; 80053; 82800; 83880; 84443; 85025; 99285; A0425; A0429; J7620; 36600; 71010; 82803; 83605; 87040; 87493; 93005; 96374; A9270-GY; J2060; J2270; J2405; J2543; J2930; J3370; J7030; J7040; J7050

== ENCOUNTER 2016-06-30 09:35 | Inpatient (IN) | payer MEDICARE, MEDICAID ==
[2016-07-02] MEDS ORDERED: Tuberculin, PPD 5 Units/0.1 ML 1 ML MDV IDERM ONE (11:29)
--- NOTE | 2016-07-02 11:43 | PCM.HP ---
H&P History of Present Illness - General Date of Service: 07/02/16 Admit Problem/Dx: Admission Diagnosis/Problem Admission Diagnosis/Problem Weakness Source of Information: Patient, Family, Old records, RN, RN notes reviewed History Limitations: Reports: No limitations - History of Present Illness Initial Comments - Free Text/Narative: This is an 80yo F who was recently admitted for COPD exacerbation, pneumonia, C. diff diarrhea, and generalized weakness. Patient is a compensated COPD patient with respiratory acidosis compensated by metabolic alkalosis. She has maintained a baseline oxygen saturation of 94-96 on 2.5L at home but was up to 3 -3.5L prior to admission. Patient's pneumonia has resolved but has 3 more days on augmentin. Patient also has to finish her course of vancomycin for her C. diff. Patient continues to be weak and requires PT/OT management. She continually has drops in her oxygen saturation when she gets anxious, angry, frustrated, or with any exertion, but this also appears to be her baseline. Duration of Symptoms: Reports: Chronic Location: Reports: generalized Severity: moderate Associated Symptoms: Reports: weakness - Related Data Allergies/Adverse Reactions: Allergies Allergy/AdvReac Type Severity Reaction Status Date / Time azithromycin [From Zithromax] Allergy Difficulty Verified 07/02/16 11:35 Breathing bupropion HCl Allergy Difficulty Verified 07/02/16 11:35 [From Wellbutrin] Breathing ciprofloxacin Allergy Difficulty Verified 07/02/16 11:35 Breathing fluticasone propionate Allergy Difficulty Verified 07/02/16 11:35 [From Advair Diskus] Breathing levofloxacin Allergy Muscle Verified 07/02/16 11:35 Aches salmeterol xinafoate Allergy Difficulty Verified 07/02/16 11:35 [From Advair Diskus] Breathing soy Allergy Difficulty Verified 07/02/16 11:35 Breathing Sulfa (Sulfonamide Allergy Anaphylactic Verified 07/02/16 11:35 Antibiotics) Shock Home Medications: Home Meds Ascorbic Acid [Vitamin C] 500 mg PO DAILY 06/26/16 [History] Calcium Carb/D3/Magnesium/Zinc [Bogdan Mag Zinc + D3] 1 tab PO DAILY 06/26/16 [ History] Cetirizine [ZyrTEC] 10 mg PO DAILY 06/26/16 [History] Cyanocobalamin/Cobamamide [Cvs B-12 5,000 Mcg Microlozeng] 1 each SL DAILY 06/26 [History] Ferrous Gluconate [Ferate] 480 mg PO DAILY 06/26/16 [History] Fluticasone Propionate [Flovent HFA 220 MCG] 2 puff INH BID 06/26/16 [History] Furosemide 40 mg PO DAILY 06/26/16 [History] Ipratropium [place] 0.2 mg IH Q4H PRN 06/26/16 [History] Levalbuterol Tartrate [Xopenex HFA] 1 puff INH Q4HR PRN 06/26/16 [History] Levothyroxine Sodium [Synthroid] 100 mg PO DAILY 06/26/16 [History] Melatonin 3 mg PO BEDTIME 06/26/16 [History] Metoprolol Succinate [Toprol XL] 25 mg PO DAILY 06/26/16 [History] Montelukast Sodium 10 mg PO DAILY 06/26/16 [History] Omeprazole 20 mg PO DAILY 06/26/16 [History] Past Medical History Cardiovascular History: Reports: Heart Failure Respiratory History: Reports: COPD, SOB Gastrointestinal History: Reports: GERD 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: Endocrine/Metabolic History: Reports: Hypothyroidism - Infectious Disease History Infectious Disease History: Reports: C-difficile, Chicken pox, Measles, Mumps - Past Surgical History Cardiovascular Surgical History: Reports: None Social & Family History - Family History Family Medical History: Noncontributory - Tobacco Use Smoking Status *Q: Former Smoker Second Hand Smoke Exposure: No - Recreational Drug Use Recreational Drug Use: No H&P Review of Systems - Review of Systems: Review Of Systems: See Below General: Reports: weakness HEENT: Reports: no symptoms Pulmonary: Reports: Shortness of Breath Cardiovascular: Reports: no symptoms Gastrointestinal: Reports: No symptoms Genitourinary: Reports: incontinence Musculoskeletal: Reports: no symptoms Skin: Reports: no symptoms Psychiatric: Reports: agitation Neurological: Reports: Weakness Exam - Exam Exam: See Below - Vital Signs Weight: 61.235 kg - Exam Quality Assessment: supplemental oxygen General: alert, oriented, cooperative HEENT: PERRLA, Conjunctiva clear, EACs clear, EOMI Neck: supple, trachea midline Lungs: Decreased breath sounds, Rhonchi Cardiovascular: regular rhythm, tachycardia Abdomen: normal bowel sounds, soft Back Exam: normal inspection, full range of motion Extremities: normal inspection Peripheral Pulses: 1+: dorsalis pedis (L), dorsalis pedis (R) Skin: warm, dry, intact Neurological: cranial nerves intact, reflexes equal bilateral Neuro Extensive - Mental Status: alert, normal mood/affect, disorientation to time (thought it was May 2016) *Q Meaningful Use (ADM) - VTE *Q VTE Criteria *Q: - Stroke *Q Stroke Criteria *Q: - AMI *Q AMI Criteria *Q: - Problem List (1) COPD exacerbation SNOMED Code(s): 092471536, 568726030 ICD Code: J44.1 - CHRONIC OBSTRUCTIVE PULMONARY DISEASE W (ACUTE) EXACERBATION Status: Acute Priority: High Current Visit: Yes (2) Clostridium difficile diarrhea SNOMED Code(s): 903287575, 314954946 ICD Code: A04.7 - ENTEROCOLITIS DUE TO CLOSTRIDIUM DIFFICILE Status: Acute Priority: Medium Current Visit: Yes (3) CHF (congestive heart failure) SNOMED Code(s): 85213687 ICD Code: I50.9 - HEART FAILURE, UNSPECIFIED Status: Chronic Priority: Medium Current Visit: Yes Qualifiers: Congestive heart failure type: unspecified congestive heart failure type Congestive heart failure chronicity: chronic Qualified Code(s): I50.9 - Heart failure, unspecified (4) Colon cancer SNOMED Code(s): 275838439 ICD Code: C18.9 - MALIGNANT NEOPLASM OF COLON, UNSPECIFIED Status: Chronic Priority: Medium Current Visit: Yes Qualifiers: Colon location: unspecified part of colon Qualified Code(s): C18.9 - Malignant neoplasm of colon, unspecified (5) Hypothyroidism SNOMED Code(s): 82572307 ICD Code: E03.9 - HYPOTHYROIDISM, UNSPECIFIED Status: Chronic Priority: Medium Current Visit: Yes Qualifiers: Hypothyroidism type: acquired Qualified Code(s): E03.9 - Hypothyroidism, unspecified (6) Pneumonia SNOMED Code(s): 557754652 ICD Code: J18.9 - PNEUMONIA, UNSPECIFIED ORGANISM Status: Resolved Priority: High Current Visit: No Qualifiers: Pneumonia type: due to unspecified organism Laterality: right Lung location: lower lobe of lung Qualified Code(s): J18.1 - Lobar pneumonia, unspecified organism (7) Generalized weakness SNOMED Code(s): 93053458 ICD Code: R53.1 - WEAKNESS Status: Acute Priority: High Current Visit: Yes Problem List Initiated/Reviewed/Updated: Yes Orders Last 24hrs: Active Orders 24 hr Category Date Time Status Patient Status [ADT] Routine ADT 07/02/16 11:29 Active Consult to Atmospheric Drier Tender [CONS] Routine Cons 07/02/16 11:29 Active Consult to Home Health [CONS] Routine Cons 07/02/16 11:29 Active Consult to Infection Prevention [CONS] Routine Cons 07/02/16 11:29 Active Consult to Cashier Host/Hostess [CONS] Routine Cons 07/02/16 11:29 Active OT Evaluation and Treatment [CONS] Routine Cons 07/02/16 11:29 Active PT Evaluation and Treatment [CONS] Routine Cons 07/02/16 11:29 Active Tuberculin, PPD [Aplisol] Med 07/02/16 11:29 Once 5 unit IDERM ONETIME ONE Resuscitation Status Routine Resus Stat 07/02/16 11:29 Ordered Medication Orders Tuberculin PPD (Aplisol) 5 unit IDERM ONETIME ONE Stop: 07/02/16 11:30 Assessment/Plan Comment:: Patient to continue on antibiotics orally for full course of vanco and 3 more days of augmentin. Patient will start PT/OT for generalized weakness. We will continue IVF hydration at this time. Discussed colon cancer diagnosis and there are no plans for further workup or management as prior Oncologist would not do any further intervention due to severe COPD. Patient to be on current COPD management. We will continue to slowly taper solumedrol.
[2016-07-02] MEDS: methylPREDNISolone Sodium Succinate 125 MG/2 ML SDV IVPUSH SCH ×2 (12:00→23:17)
[2016-07-02] MEDS: Levalbuterol HCl 1.25 MG/0.5 ML Neb INH SCH ×5 (13:00→23:18)
[2016-07-02] MEDS ORDERED: Non-Formulary Medication 1 Each INH PRN (13:42)
[2016-07-02] MEDS ORDERED: Loperamide 2 MG Cap PO PRN (13:42)
[2016-07-02] MEDS ORDERED: LEVALBUTEROL TARTRATE INH PRN (13:42)
[2016-07-02] MEDS ORDERED: Ondansetron 4 MG/2 ML SDV IV PRN (13:42)
[2016-07-02] MEDS ORDERED: Nystatin Crm 30 GM Tube TOP PRN (13:42)
[2016-07-02] MEDS ORDERED: SODIUM CHLORIDE 0.9% IV SCH (13:45)
[2016-07-02] MEDS ORDERED: [UNRECOGNIZED DRUG - OTHER] IV SCH (13:45)
[2016-07-02] MEDS ORDERED: Sodium Chloride 0.9% 1,000 ML IV SCH (15:45)
[2016-07-02] MEDS ORDERED: Sodium Chloride 0.9% 10 ML Syringe IV SCH (15:45)
[2016-07-02] MEDS: Ipratropium 0.02% 0.5 MG/2.5 ML Neb Soln NEB SCH ×2 (15:55→20:30)
[2016-07-02] MEDS: Vancomycin 1 GM SDV PO SCH ×2 (16:01→20:31)
[2016-07-02] MEDS ORDERED: Fluticasone Propionate 220 MCG/Puff 12 GM Inhaler INH SCH (20:00)
[2016-07-02] MEDS ORDERED: Budesonide 0.5 MG/2 ML Neb Susp INH SCH (20:00)
[2016-07-02] MEDS: Melatonin 3 MG Tab PO SCH (20:31)
[2016-07-02] MEDS: Amoxicillin/Clavulanate K 875-125 MG Tab PO SCH (20:31)
[2016-07-03] MEDS: methylPREDNISolone Sodium Succinate 125 MG/2 ML SDV IVPUSH SCH ×2 (03:35→13:25)
[2016-07-03] MEDS: Levalbuterol HCl 1.25 MG/0.5 ML Neb INH SCH ×5 (03:35→20:25)
[2016-07-03] MEDS: Ipratropium 0.02% 0.5 MG/2.5 ML Neb Soln NEB SCH ×6 (06:38→18:26)
[2016-07-03] MEDS ORDERED: LORazepam 2 MG/ML MDV ONE (06:48)
[2016-07-03] MEDS ORDERED: LORazepam 2 MG/ML MDV IVPUSH ONE (06:52)
[2016-07-03] MEDS ORDERED: Non-Formulary Medication 1 Each (Ascorbic Acid [Vitamin C] 500 MG) PO SCH (08:00)
[2016-07-03] MEDS ORDERED: FERROUS GLUCONATE PO SCH (08:00)
[2016-07-03] MEDS: Omeprazole 20 MG Cap.CR PO SCH (08:44)
[2016-07-03] MEDS: Levothyroxine 100 MCG Tab PO SCH (08:45)
[2016-07-03] MEDS: Amoxicillin/Clavulanate K 875-125 MG Tab PO SCH ×2 (08:46→20:26)
[2016-07-03] MEDS: Vancomycin 1 GM SDV PO SCH ×4 (08:46→20:25)
[2016-07-03] MEDS: Furosemide 40 MG Tab PO SCH (08:46)
[2016-07-03] MEDS: Ascorbic Acid 500 MG Tab PO SCH (08:50)
--- NOTE | 2016-07-03 09:49 | PCM.SN ---
- Free Text/Narrative Note: Patient had decreased oxygen saturation this am and at the same time was anxious and had a disagreement with her daughter. Per daughter they refuse morphine due to her concern that the patient has a sulfa allergy despite explanation that this is a different chemical structure and that the patient has also recently been placed on morphine the past few days with improvement in breathing comfort. Once again the daughter refuses. Ativan 0.25mg given and oxygen increased to 3L, did improve the anxiety and patient's oxygen saturation did improve and return to 92%. After a recheck patient at 95%.
[2016-07-03] MEDS ORDERED: CALCIUM CARB PO SCH (12:00)
[2016-07-03] MEDS ORDERED: Non-Formulary Medication 1 Each PO SCH ×3 (12:00)
[2016-07-03] MEDS ORDERED: Calcium Carbonate/Vitamin D3 1500 MG-400 Units Tab PO SCH (12:00)
[2016-07-03] MEDS ORDERED: D3 PO SCH (12:00)
[2016-07-03] MEDS ORDERED: Ferrous Gluconate 324 MG Tab PO SCH (12:00)
[2016-07-03] MEDS ORDERED: [UNRECOGNIZED DRUG - OTHER] PO SCH (12:00)
[2016-07-03] MEDS ORDERED: MAGNESIUM PO SCH (12:00)
[2016-07-03] MEDS ORDERED: [UNRECOGNIZED DRUG - OTHER] PO SCH (12:00)
[2016-07-03] MEDS ORDERED: ZINC PO SCH (12:00)
[2016-07-03] MEDS: Lactobacillus Acidophilus/Lactobacillus Sporogenes (Probiotic) Tab PO SCH (12:48)
[2016-07-03] MEDS: TYLENOL SINUS PO SCH (12:49)
[2016-07-03] MEDS: Multivitamins with Iron/Calcium/Folic Acid/Minerals Tab PO SCH (12:49)
[2016-07-03] MEDS: Montelukast 10 MG Tab PO SCH (12:49)
[2016-07-03] MEDS: Cetirizine 10 MG Tab PO SCH (12:50)
[2016-07-03] MEDS: Metoprolol Succinate 25 MG Tab.ER PO SCH (12:50)
[2016-07-03] MEDS ORDERED: Morphine 2 MG/ML Syringe ONE (12:56)
[2016-07-03] MEDS: Arformoterol 15 MCG/2 ML Neb Soln NEB SCH ×2 (14:53→20:30)
[2016-07-03] MEDS: Melatonin 3 MG Tab PO SCH (20:26)
[2016-07-03] MEDS: Menthol/Zinc Oxide Ointment 113 GM Tube TOP PRN (20:30)
[2016-07-04] MEDS: Ipratropium 0.02% 0.5 MG/2.5 ML Neb Soln NEB SCH ×4 (00:53→20:57)
[2016-07-04] MEDS: Levalbuterol HCl 1.25 MG/0.5 ML Neb INH SCH ×3 (00:58→09:44)
[2016-07-04] MEDS: methylPREDNISolone Sodium Succinate 125 MG/2 ML SDV IVPUSH SCH ×2 (02:22→10:22)
[2016-07-04] MEDS: Menthol/Zinc Oxide Ointment 113 GM Tube TOP PRN ×2 (05:00→21:21)
[2016-07-04] MEDS ORDERED: Ondansetron 4 MG Tab.DIS ONE (05:17)
[2016-07-04] MEDS: Morphine 2 MG/ML Syringe SUBCUT PRN (05:28)
[2016-07-04] MEDS: methylPREDNISolone Sodium Succinate 125 MG/2 ML SDV IM SCH ×2 (05:32→14:23)
[2016-07-04] MEDS: Levothyroxine 100 MCG Tab PO SCH (06:05)
[2016-07-04] MEDS: Arformoterol 15 MCG/2 ML Neb Soln NEB SCH (09:31)
[2016-07-04] MEDS: Furosemide 40 MG Tab PO SCH (09:32)
[2016-07-04] MEDS: Amoxicillin/Clavulanate K 875-125 MG Tab PO SCH ×2 (09:32→20:40)
[2016-07-04] MEDS: Omeprazole 20 MG Cap.CR PO SCH (09:33)
[2016-07-04] MEDS: Ascorbic Acid 500 MG Tab PO SCH (09:34)
[2016-07-04] MEDS: Vancomycin 1 GM SDV PO SCH ×4 (09:43→20:32)
[2016-07-04] MEDS ORDERED: XOPENEX INHALER INH PRN (11:07)
[2016-07-04] MEDS: GENTLE IRON PO SCH (11:36)
[2016-07-04] MEDS: VITAMIN D3 PO SCH (11:36)
[2016-07-04] MEDS: Multivitamins with Iron/Calcium/Folic Acid/Minerals Tab PO SCH (11:39)
[2016-07-04] MEDS: Lactobacillus Acidophilus/Lactobacillus Sporogenes (Probiotic) Tab PO SCH (11:40)
[2016-07-04] MEDS: Montelukast 10 MG Tab PO SCH (11:40)
[2016-07-04] MEDS: Metoprolol Succinate 25 MG Tab.ER PO SCH (11:40)
[2016-07-04] MEDS: TYLENOL SINUS PO SCH (11:40)
[2016-07-04] MEDS: Cetirizine 10 MG Tab PO SCH (11:42)
[2016-07-04] MEDS: Melatonin 3 MG Tab PO SCH (20:39)
[2016-07-04] MEDS: BROVANA INH SCH (20:42)
[2016-07-05] MEDS: XOPENEX INHALER INH PRN ×2 (00:10→09:29)
[2016-07-05] MEDS: Acetaminophen 325 MG Tab PO PRN (00:22)
[2016-07-05] MEDS: methylPREDNISolone Sodium Succinate 125 MG/2 ML SDV IM SCH ×2 (04:26→14:19)
[2016-07-05] MEDS: Levothyroxine 100 MCG Tab PO SCH (07:05)
[2016-07-05] MEDS: Ipratropium 0.02% 0.5 MG/2.5 ML Neb Soln NEB SCH ×3 (07:40→19:27)
[2016-07-05] MEDS: Amoxicillin/Clavulanate K 875-125 MG Tab PO SCH ×2 (08:30→19:27)
[2016-07-05] MEDS: Vancomycin 1 GM SDV PO SCH ×4 (08:31→19:30)
[2016-07-05] MEDS: Omeprazole 20 MG Cap.CR PO SCH (08:33)
[2016-07-05] MEDS: Furosemide 40 MG Tab PO SCH (08:33)
[2016-07-05] MEDS: Ascorbic Acid 500 MG Tab PO SCH (08:34)
[2016-07-05] MEDS: Menthol/Zinc Oxide Ointment 113 GM Tube TOP PRN (08:36)
[2016-07-05] MEDS: BROVANA INH SCH ×2 (09:29→19:28)
[2016-07-05] MEDS: Lactobacillus Acidophilus/Lactobacillus Sporogenes (Probiotic) Tab PO SCH (12:27)
[2016-07-05] MEDS: GENTLE IRON PO SCH (12:27)
[2016-07-05] MEDS: TYLENOL SINUS PO SCH (12:27)
[2016-07-05] MEDS: Montelukast 10 MG Tab PO SCH (12:27)
[2016-07-05] MEDS: VITAMIN D3 PO SCH (12:27)
[2016-07-05] MEDS: Metoprolol Succinate 25 MG Tab.ER PO SCH (12:28)
[2016-07-05] MEDS: Multivitamins with Iron/Calcium/Folic Acid/Minerals Tab PO SCH (12:28)
[2016-07-05] MEDS: Cetirizine 10 MG Tab PO SCH (12:32)
[2016-07-05] MEDS: Melatonin 3 MG Tab PO SCH (19:27)
[2016-07-05] MEDS: Morphine 2 MG/ML Syringe SUBCUT PRN (19:53)
[2016-07-06] MEDS: XOPENEX INHALER INH PRN ×3 (00:01→16:39)
[2016-07-06] MEDS: methylPREDNISolone Sodium Succinate 125 MG/2 ML SDV IM SCH ×2 (02:09→16:24)
[2016-07-06] MEDS: Morphine 2 MG/ML Syringe SUBCUT PRN ×3 (02:10→16:26)
[2016-07-06] MEDS: Levothyroxine 100 MCG Tab PO SCH (06:15)
[2016-07-06] MEDS: Ipratropium 0.02% 0.5 MG/2.5 ML Neb Soln NEB SCH ×3 (08:06→19:32)
[2016-07-06] MEDS: Furosemide 40 MG Tab PO SCH (08:07)
[2016-07-06] MEDS: Ascorbic Acid 500 MG Tab PO SCH (08:08)
[2016-07-06] MEDS: Omeprazole 20 MG Cap.CR PO SCH (08:08)
[2016-07-06] MEDS: Vancomycin 1 GM SDV PO SCH ×4 (08:16→19:33)
[2016-07-06] MEDS: Fluticasone Propionate 220 MCG/Puff 12 GM Inhaler INH SCH ×2 (08:33→19:32)
[2016-07-06] MEDS: BROVANA INH SCH ×2 (09:45→19:33)
--- NOTE | 2016-07-06 10:47 | PCM.SN ---
- Free Text/Narrative Note: Evaluated patient last night. Discussed with daughter management plans. Both daughter and patient in agreement with optimizing medications at this time. Patient continues to be sob on exertion but recovers when not agitated. Increased oxygen [place] use appears to improve symptoms when patient gets agitated and her oxygen saturation lowers.
[2016-07-06] MEDS: Cetirizine 10 MG Tab PO SCH (13:30)
[2016-07-06] MEDS: VITAMIN D3 PO SCH (13:30)
[2016-07-06] MEDS: Multivitamins with Iron/Calcium/Folic Acid/Minerals Tab PO SCH (13:30)
[2016-07-06] MEDS: TYLENOL SINUS PO SCH (13:30)
[2016-07-06] MEDS: Metoprolol Succinate 25 MG Tab.ER PO SCH (13:30)
[2016-07-06] MEDS: GENTLE IRON PO SCH (13:30)
[2016-07-06] MEDS: Lactobacillus Acidophilus/Lactobacillus Sporogenes (Probiotic) Tab PO SCH (13:30)
[2016-07-06] MEDS: Montelukast 10 MG Tab PO SCH (13:30)
[2016-07-06] MEDS: Melatonin 3 MG Tab PO SCH (19:33)
[2016-07-07] MEDS: methylPREDNISolone Sodium Succinate 125 MG/2 ML SDV IM SCH ×2 (00:40→06:06)
[2016-07-07] MEDS: Acetaminophen 325 MG Tab PO PRN ×2 (00:42→09:17)
[2016-07-07] MEDS: Levothyroxine 100 MCG Tab PO SCH (06:05)
[2016-07-07] MEDS: Omeprazole 20 MG Cap.CR PO SCH (08:13)
[2016-07-07] MEDS: Ascorbic Acid 500 MG Tab PO SCH (08:13)
[2016-07-07] MEDS: Furosemide 40 MG Tab PO SCH (08:13)
[2016-07-07] MEDS: Menthol/Zinc Oxide Ointment 113 GM Tube TOP PRN (08:15)
[2016-07-07] MEDS: Vancomycin 1 GM SDV PO SCH ×4 (08:16→20:18)
[2016-07-07] MEDS: Ipratropium 0.02% 0.5 MG/2.5 ML Neb Soln NEB SCH ×3 (08:16→20:19)
[2016-07-07] MEDS: Fluticasone Propionate 220 MCG/Puff 12 GM Inhaler INH SCH ×2 (08:27→20:21)
[2016-07-07] MEDS: Morphine 2 MG/ML Syringe SUBCUT PRN (08:59)
--- NOTE | 2016-07-07 09:32 | PCM.PN ---
- General Info Date of Service: 07/07/16 Subjective Update: Patient states she is sob but does appear breathing comfortably with good oxygenation at 93%. Patient has had difficulty with bedding changes, diaper changes, and getting out of bed due to her sob. She does decrease in saturation per the nurse but the last decrease was in the mid 80's as compared to the prior week where she has been observed in the high 70's. Patient denies any improvement and states she is sob all the time. - Review of Systems General: Reports: Weakness HEENT: Reports: no symptoms Pulmonary: Reports: shortness of breath Cardiovascular: Reports: Dyspnea on Exertion Gastrointestinal: Reports: No symptoms Genitourinary: Reports: no symptoms Musculoskeletal: Reports: no symptoms Skin: Reports: no symptoms Neurological: Reports: Weakness Psychiatric: Reports: anxiety - Patient Data Vitals - most recent: Last Vital Signs Temp 36.6 C 07/07/16 08:00 Pulse 89 07/07/16 08:00 Resp 22 H 07/07/16 08:00 BP 176/81 H 07/07/16 08:00 Pulse Ox 91 L 07/07/16 08:00 Weight - most recent: 61.235 kg I&O - last 24 hours: Intake & Output 07/06/16 07/07/16 07/07/16 22:59 06:59 14:59 Intake Total 480 320 Balance 480 320 Med Orders - Current: Current Medications Acetaminophen (Tylenol) 650 mg PO Q4H PRN PRN Reason: Other Last Admin: 07/07/16 09:17 Dose: 650 mg Ascorbic Acid (Vitamin C) 500 mg PO DAILY [facility] Last Admin: 07/07/16 08:13 Dose: 500 mg Calamine/Phenol (Calmoseptine) 0.1 gm TOP QID PRN PRN Reason: Agitation Last Admin: 07/05/16 08:36 Dose: 1 applic Cetirizine HCl (Zyrtec) 10 mg PO 1200 [facility] Last Admin: 07/06/16 13:30 Dose: 10 mg Fluticasone Propionate (Flovent Hfa 220 Mcg) 0 gm INH BID [facility] Last Admin: 07/07/16 08:27 Dose: 2 puff Furosemide (Lasix) 40 mg PO DAILY [facility] Last Admin: 07/07/16 08:13 Dose: 40 mg Sodium Chloride (Normal Saline) 1,000 mls @ 30 mls/hr IV ASDIRECTED [facility] Ipratropium [place] (Atrovent) 0.5 mg NEB TID [facility] Last Admin: 07/07/16 08:16 Dose: 0.5 mg Lactobacillus Acidophilus (Acidolphilus Extra Strength) 1 tab PO 1200 [facility] Last Admin: 07/06/16 13:30 Dose: 1 tab Levothyroxine Sodium (Synthroid) 100 mcg PO ACBREAKFAST [facility] Last Admin: 07/07/16 06:05 Dose: 100 mcg Melatonin (Melatonin) 3 mg PO BEDTIME [facility] Last Admin: 07/06/16 19:33 Dose: 3 mg Methylprednisolone Sodium Succinate (Solu-Medrol) 125 mg IM Q12H [facility] Last Admin: 07/07/16 06:06 Dose: Not Given Metoprolol Succinate (Toprol Xl) 25 mg PO 1200 [facility] Last Admin: 07/06/16 13:30 Dose: 25 mg Montelukast Sodium (Singulair) 10 mg PO 1200 [facility] Last Admin: 07/06/16 13:30 Dose: 10 mg Morphine Sulfate (Morphine) 0.5 mg SUBCUT Q2H PRN PRN Reason: Shortness of Breath Last Admin: 07/07/16 08:59 Dose: 0.5 mg Multivitamins/Minerals (Thera M Plus) 1 tab PO 1200 [facility] Last Admin: 07/06/16 13:30 Dose: 1 tab Tylenol Sinus 1 each PO 1200 [facility] Last Admin: 07/06/16 13:30 Dose: 1 each Gentle Iron 1 each PO 1200 [facility] Last Admin: 07/06/16 13:30 Dose: 1 each Vitamin D3 400iu 1 each PO 1200 [facility] Last Admin: 07/06/16 13:30 Dose: 1 each Brovana 1 each INH BID [facility] Last Admin: 07/06/16 19:33 Dose: 1 each Xopenex Inhaler 2 each INH SEECOMMENT PRN PRN Reason: COPD Last Admin: 07/06/16 16:39 Dose: 2 each Nystatin (Nystatin Crm) 1 gm TOP TID PRN PRN Reason: Other Omeprazole (Omeprazole) 20 mg PO DAILY [facility] Last Admin: 07/07/16 08:13 Dose: 20 mg Ondansetron HCl (Zofran) 4 mg IV Q4H PRN PRN Reason: Nausea Sodium Chloride (Saline Flush) 10 ml IV ASDIRECTED [facility] Vancomycin HCl (Vancomycin) 0.125 gm PO QID [facility] Stop: 07/11/16 20:00 Last Admin: 07/07/16 08:16 Dose: 0.125 gm Discontinued Medications Amoxicillin/Clavulanate Potassium (Augmentin 875 Mg/125 Mg) 1 tab PO Q12HR [facility] Stop: 07/05/16 20:01 Last Admin: 07/05/16 19:27 Dose: 1 tab Arformoterol Tartrate (Brovana) 15 mcg NEB BID [facility] Last Admin: 07/04/16 09:31 Dose: 15 mcg Budesonide (Pulmicort) 0.5 mg INH BID [facility] Last Admin: 07/04/16 10:23 Dose: Not Given Calcium Carbonate (Caltrate 600+D 1500 Mg-400 Units) 1 tab PO 1200 [facility] Last Admin: 07/03/16 12:48 Dose: Not Given Ferrous Gluconate (Ferrous Gluconate) 324 mg PO 1200 [facility] Last Admin: 07/03/16 12:49 Dose: Not Given Formoterol Fumarate (Perforomist) 20 mcg INH BID [facility] Levalbuterol HCl (Xopenex) 1.25 mg INH Q4H [facility] Last Admin: 07/04/16 09:44 Dose: 1.25 mg Lorazepam (Ativan) Confirm Administered Dose 2 mg .ROUTE .STK-MED ONE Stop: 07/03/16 06:49 Last Admin: 07/03/16 07:06 Dose: 2 mg Lorazepam (Ativan) 0.25 mg IVPUSH ONETIME ONE Stop: 07/03/16 06:53 Last Admin: 07/03/16 07:19 Dose: Not Given Methylprednisolone Sodium Succinate (Solu-Medrol) 125 mg IVPUSH Q12H [facility] Last Admin: 07/04/16 10:22 Dose: Not Given Morphine Sulfate (Morphine) Confirm Administered Dose 2 mg .ROUTE .STK-MED ONE Stop: 07/03/16 12:57 Last Admin: 07/03/16 13:21 Dose: 0.5 mg Xopenex Inhaler 0 - 2 each INH SEECOMMENT PRN PRN Reason: COPD Ondansetron HCl (Zofran Odt) Confirm Administered Dose 4 mg .ROUTE .STK-MED ONE Stop: 07/04/16 05:18 Last Admin: 07/04/16 05:29 Dose: 4 mg Tuberculin PPD (Aplisol) 5 unit IDERM ONETIME ONE Stop: 07/02/16 11:30 Last Admin: 07/03/16 14:55 Dose: 5 unit - Exam Quality Assessment: supplemental oxygen General: alert, oriented, cooperative HEENT: Pupils equal Neck: supple Lungs: Decreased breath sounds Cardiovascular: Regular Rate, Regular Rhythm Abdomen: bowel sounds present Back Exam: normal inspection Extremities: no edema - Problem List & Annotations (1) COPD exacerbation SNOMED Code(s): 176566594, 593079423 Code(s): J44.1 - CHRONIC OBSTRUCTIVE PULMONARY DISEASE W (ACUTE) EXACERBATION Status: Acute Priority: High Current Visit: Yes (2) Clostridium difficile diarrhea SNOMED Code(s): 239656339, 435305428 Code(s): A04.7 - ENTEROCOLITIS DUE TO CLOSTRIDIUM DIFFICILE Status: Acute Priority: Medium Current Visit: Yes (3) CHF (congestive heart failure) SNOMED Code(s): 20920544 Code(s): I50.9 - HEART FAILURE, UNSPECIFIED Status: Chronic Priority: Medium Current Visit: Yes Qualifiers: Congestive heart failure type: unspecified congestive heart failure type Congestive heart failure chronicity: chronic Qualified Code(s): I50.9 - Heart failure, unspecified (4) Colon cancer SNOMED Code(s): 442233108 Code(s): C18.9 - MALIGNANT NEOPLASM OF COLON, UNSPECIFIED Status: Chronic Priority: Medium Current Visit: Yes Qualifiers: Colon location: unspecified part of colon Qualified Code(s): C18.9 - Malignant neoplasm of colon, unspecified (5) Hypothyroidism SNOMED Code(s): 80440651 Code(s): E03.9 - HYPOTHYROIDISM, UNSPECIFIED Status: Chronic Priority: Medium Current Visit: Yes Qualifiers: Hypothyroidism type: acquired Qualified Code(s): E03.9 - Hypothyroidism, unspecified (6) Pneumonia SNOMED Code(s): 448580782 Code(s): J18.9 - PNEUMONIA, UNSPECIFIED ORGANISM Status: Resolved Priority: High Current Visit: No Qualifiers: Pneumonia type: due to unspecified organism Laterality: right Lung location: lower lobe of lung Qualified Code(s): J18.1 - Lobar pneumonia, unspecified organism (7) Generalized weakness SNOMED Code(s): 52807552 Code(s): R53.1 - WEAKNESS Status: Acute Priority: High Current Visit: Yes - Problem List Review Problem List Initiated/Reviewed/Updated: Yes - Plan Plan:: Patient to continue on antibiotics orally for full course of vanco and 3 more days of augmentin. Patient will start PT/OT for generalized weakness. We will continue IVF hydration at this time. Discussed colon cancer diagnosis and there are no plans for further workup or management as prior Oncologist would not do any further intervention due to severe COPD. Patient to be on current COPD management. We will continue to slowly taper solumedrol. 07/07/16 Discussed sob symptoms and likelihood of her symptoms being her baseline. She continues to be on methylprednisolone and we will taper to daily today. Discussed future plans of care center or discharge and patient/daughter agree that they do not want the care center and would rather go home.
[2016-07-07] MEDS: BROVANA INH SCH ×2 (12:00→20:26)
[2016-07-07] MEDS: Multivitamins with Iron/Calcium/Folic Acid/Minerals Tab PO SCH (12:02)
[2016-07-07] MEDS: Lactobacillus Acidophilus/Lactobacillus Sporogenes (Probiotic) Tab PO SCH (12:02)
[2016-07-07] MEDS: Metoprolol Succinate 25 MG Tab.ER PO SCH (12:02)
[2016-07-07] MEDS: Montelukast 10 MG Tab PO SCH (12:05)
[2016-07-07] MEDS: Cetirizine 10 MG Tab PO SCH (12:05)
[2016-07-07] MEDS: GENTLE IRON PO SCH (12:06)
[2016-07-07] MEDS: VITAMIN D3 PO SCH (12:06)
[2016-07-07] MEDS: TYLENOL SINUS PO SCH (12:15)
[2016-07-07] MEDS: Melatonin 3 MG Tab PO SCH (20:19)
[2016-07-08] MEDS: XOPENEX INHALER INH PRN ×3 (00:29→12:05)
[2016-07-08] MEDS: Levothyroxine 100 MCG Tab PO SCH (06:58)
[2016-07-08] MEDS: Ipratropium 0.02% 0.5 MG/2.5 ML Neb Soln NEB SCH ×3 (07:58→20:16)
[2016-07-08] MEDS: Ascorbic Acid 500 MG Tab PO SCH (08:27)
[2016-07-08] MEDS: Furosemide 40 MG Tab PO SCH (08:27)
[2016-07-08] MEDS: Omeprazole 20 MG Cap.CR PO SCH (08:27)
[2016-07-08] MEDS: Fluticasone Propionate 220 MCG/Puff 12 GM Inhaler INH SCH ×2 (08:30→20:17)
[2016-07-08] MEDS: Morphine 2 MG/ML Syringe SUBCUT PRN ×3 (08:42→15:51)
[2016-07-08] MEDS: methylPREDNISolone Sodium Succinate 125 MG/2 ML SDV IM SCH (08:55)
[2016-07-08] MEDS: Vancomycin 1 GM SDV PO SCH ×4 (09:10→20:18)
[2016-07-08] MEDS: BROVANA INH SCH ×2 (11:00→20:16)
[2016-07-08] MEDS: VITAMIN D3 PO SCH (13:50)
[2016-07-08] MEDS: GENTLE IRON PO SCH (13:50)
[2016-07-08] MEDS: TYLENOL SINUS PO SCH (13:51)
[2016-07-08] MEDS: Lactobacillus Acidophilus/Lactobacillus Sporogenes (Probiotic) Tab PO SCH (13:54)
[2016-07-08] MEDS: Multivitamins with Iron/Calcium/Folic Acid/Minerals Tab PO SCH (13:54)
[2016-07-08] MEDS: Metoprolol Succinate 25 MG Tab.ER PO SCH (13:54)
[2016-07-08] MEDS: Cetirizine 10 MG Tab PO SCH (13:54)
[2016-07-08] MEDS: Montelukast 10 MG Tab PO SCH (14:00)
[2016-07-08] MEDS: Melatonin 3 MG Tab PO SCH ×2 (20:16→21:31)
[2016-07-08] MEDS: Menthol/Zinc Oxide Ointment 113 GM Tube TOP PRN (21:56)
[2016-07-09] MEDS: XOPENEX INHALER INH PRN ×2 (00:16→08:53)
[2016-07-09] MEDS: BROVANA INH SCH ×2 (08:07→20:12)
[2016-07-09] MEDS: Omeprazole 20 MG Cap.CR PO SCH (08:08)
[2016-07-09] MEDS: Furosemide 40 MG Tab PO SCH (08:08)
[2016-07-09] MEDS: Levothyroxine 100 MCG Tab PO SCH (08:08)
[2016-07-09] MEDS: Ascorbic Acid 500 MG Tab PO SCH (08:09)
[2016-07-09] MEDS: Vancomycin 1 GM SDV PO SCH ×4 (08:10→20:13)
[2016-07-09] MEDS: Ipratropium 0.02% 0.5 MG/2.5 ML Neb Soln NEB SCH ×3 (08:53→20:11)
[2016-07-09] MEDS: methylPREDNISolone Sodium Succinate 125 MG/2 ML SDV IM SCH (08:54)
[2016-07-09] MEDS: Fluticasone Propionate 220 MCG/Puff 12 GM Inhaler INH SCH ×2 (08:59→20:12)
--- NOTE | 2016-07-09 11:47 | PCM.SN ---
- Free Text/Narrative Note: Patient evaluated and we will start on soft mechanical food. Start on nystatin for bj of the pharynx. Counseled on monitoring for family and staff.
[2016-07-09] MEDS: Metoprolol Succinate 25 MG Tab.ER PO SCH (11:50)
[2016-07-09] MEDS: Cetirizine 10 MG Tab PO SCH (11:51)
[2016-07-09] MEDS: Montelukast 10 MG Tab PO SCH (11:51)
[2016-07-09] MEDS: Lactobacillus Acidophilus/Lactobacillus Sporogenes (Probiotic) Tab PO SCH (11:51)
[2016-07-09] MEDS: GENTLE IRON PO SCH (11:51)
[2016-07-09] MEDS: VITAMIN D3 PO SCH (11:51)
[2016-07-09] MEDS: TYLENOL SINUS PO SCH (11:53)
[2016-07-09] MEDS: Multivitamins with Iron/Calcium/Folic Acid/Minerals Tab PO SCH (11:53)
[2016-07-09] MEDS: Nystatin Susp 100,000 Unit/ML 5 ML UD Cup PO SCH ×3 (11:59→20:12)
[2016-07-09] MEDS: Melatonin 3 MG Tab PO SCH (20:00)
[2016-07-10] MEDS: XOPENEX INHALER INH PRN ×2 (00:05→23:42)
[2016-07-10] MEDS: Levothyroxine 100 MCG Tab PO SCH (07:21)
[2016-07-10] MEDS: Furosemide 40 MG Tab PO SCH (07:53)
[2016-07-10] MEDS: Ipratropium 0.02% 0.5 MG/2.5 ML Neb Soln NEB SCH ×3 (07:53→20:30)
[2016-07-10] MEDS: Ascorbic Acid 500 MG Tab PO SCH (07:53)
[2016-07-10] MEDS: Nystatin Susp 100,000 Unit/ML 5 ML UD Cup PO SCH ×4 (07:53→20:30)
[2016-07-10] MEDS: methylPREDNISolone Sodium Succinate 125 MG/2 ML SDV IM SCH (07:53)
[2016-07-10] MEDS: Omeprazole 20 MG Cap.CR PO SCH (07:53)
[2016-07-10] MEDS: Vancomycin 1 GM SDV PO SCH ×4 (07:56→20:21)
[2016-07-10] MEDS: Fluticasone Propionate 220 MCG/Puff 12 GM Inhaler INH SCH ×2 (07:58→20:33)
[2016-07-10] MEDS: BROVANA INH SCH ×2 (07:59→20:33)
[2016-07-10] MEDS: Multivitamins with Iron/Calcium/Folic Acid/Minerals Tab PO SCH (11:39)
[2016-07-10] MEDS: Montelukast 10 MG Tab PO SCH (11:39)
[2016-07-10] MEDS: Lactobacillus Acidophilus/Lactobacillus Sporogenes (Probiotic) Tab PO SCH (11:39)
[2016-07-10] MEDS: Cetirizine 10 MG Tab PO SCH (11:39)
[2016-07-10] MEDS: GENTLE IRON PO SCH (11:40)
[2016-07-10] MEDS: VITAMIN D3 PO SCH (11:40)
[2016-07-10] MEDS: TYLENOL SINUS PO SCH (11:40)
[2016-07-10] MEDS: Ketoconazole 2% Crm 30 GM Tube TOP SCH ×2 (11:41→20:31)
[2016-07-10] MEDS: Metoprolol Succinate 25 MG Tab.ER PO SCH (12:03)
[2016-07-10] MEDS: Melatonin 3 MG Tab PO SCH (20:25)
[2016-07-11] MEDS: Levothyroxine 100 MCG Tab PO SCH (06:09)
[2016-07-11] MEDS: BROVANA INH SCH ×5 (08:00→20:26)
[2016-07-11] MEDS: Fluticasone Propionate 220 MCG/Puff 12 GM Inhaler INH SCH ×2 (08:00→20:25)
[2016-07-11] MEDS: Vancomycin 1 GM SDV PO SCH ×4 (08:00→20:28)
[2016-07-11] MEDS: Ipratropium 0.02% 0.5 MG/2.5 ML Neb Soln NEB SCH ×3 (08:00→20:24)
[2016-07-11] MEDS: Nystatin Susp 100,000 Unit/ML 5 ML UD Cup PO SCH ×4 (08:08→20:24)
[2016-07-11] MEDS: Furosemide 40 MG Tab PO SCH (08:09)
[2016-07-11] MEDS: Ascorbic Acid 500 MG Tab PO SCH (08:09)
[2016-07-11] MEDS: Omeprazole 20 MG Cap.CR PO SCH (08:09)
[2016-07-11] MEDS: predniSONE 10 MG Tab PO SCH (08:09)
[2016-07-11] MEDS: Ketoconazole 2% Crm 30 GM Tube TOP SCH ×2 (08:10→20:37)
[2016-07-11] MEDS: VITAMIN D3 PO SCH (12:30)
[2016-07-11] MEDS: Lactobacillus Acidophilus/Lactobacillus Sporogenes (Probiotic) Tab PO SCH (12:30)
[2016-07-11] MEDS: Montelukast 10 MG Tab PO SCH (12:30)
[2016-07-11] MEDS: GENTLE IRON PO SCH (12:30)
[2016-07-11] MEDS ORDERED: Lactobacillus Acidophilus/Lactobacillus Sporogenes (Probiotic) Tab ONE (12:39)
[2016-07-11] MEDS ORDERED: Montelukast 10 MG Tab ONE (12:48)
[2016-07-11] MEDS ORDERED: Metoprolol Succinate 25 MG Tab.ER ONE (12:49)
[2016-07-11] MEDS: TYLENOL SINUS PO SCH (13:03)
[2016-07-11] MEDS: Multivitamins with Iron/Calcium/Folic Acid/Minerals Tab PO SCH (13:05)
[2016-07-11] MEDS: Cetirizine 10 MG Tab PO SCH (13:21)
[2016-07-11] MEDS: Metoprolol Succinate 25 MG Tab.ER PO SCH (13:21)
[2016-07-11] MEDS: Melatonin 3 MG Tab PO SCH (20:25)
[2016-07-12] MEDS: Ipratropium 0.02% 0.5 MG/2.5 ML Neb Soln NEB SCH ×5 (01:13→20:27)
[2016-07-12] MEDS: Levothyroxine 100 MCG Tab PO SCH (07:16)
[2016-07-12] MEDS: Omeprazole 20 MG Cap.CR PO SCH (07:40)
[2016-07-12] MEDS: Furosemide 40 MG Tab PO SCH (07:41)
[2016-07-12] MEDS: Ketoconazole 2% Crm 30 GM Tube TOP SCH ×3 (07:41→20:29)
[2016-07-12] MEDS: Fluticasone Propionate 220 MCG/Puff 12 GM Inhaler INH SCH ×2 (07:43→20:27)
[2016-07-12] MEDS: BROVANA INH SCH ×3 (07:44→20:28)
[2016-07-12] MEDS: Nystatin Susp 100,000 Unit/ML 5 ML UD Cup PO SCH ×5 (07:50→20:29)
[2016-07-12] MEDS: predniSONE 10 MG Tab PO SCH (07:51)
[2016-07-12] MEDS: Ascorbic Acid 500 MG Tab PO SCH (07:51)
[2016-07-12] MEDS: Cetirizine 10 MG Tab PO SCH (11:27)
[2016-07-12] MEDS: Metoprolol Succinate 25 MG Tab.ER PO SCH (11:27)
[2016-07-12] MEDS: Lactobacillus Acidophilus/Lactobacillus Sporogenes (Probiotic) Tab PO SCH (11:27)
[2016-07-12] MEDS: Montelukast 10 MG Tab PO SCH (11:28)
[2016-07-12] MEDS: VITAMIN D3 PO SCH (11:29)
[2016-07-12] MEDS: GENTLE IRON PO SCH (11:30)
[2016-07-12] MEDS: TYLENOL SINUS PO SCH (11:31)
[2016-07-12] MEDS: Multivitamins with Iron/Calcium/Folic Acid/Minerals Tab PO SCH (11:31)
[2016-07-12] MEDS: XOPENEX INHALER INH PRN (17:11)
[2016-07-12] MEDS: Melatonin 3 MG Tab PO SCH ×2 (20:04→20:28)
[2016-07-13] MEDS: XOPENEX INHALER INH PRN ×3 (00:53→16:45)
[2016-07-13] MEDS: Ipratropium 0.02% 0.5 MG/2.5 ML Neb Soln NEB SCH ×5 (00:57→20:00)
[2016-07-13] MEDS: Omeprazole 20 MG Cap.CR PO SCH (07:54)
[2016-07-13] MEDS: Ascorbic Acid 500 MG Tab PO SCH (07:54)
[2016-07-13] MEDS: Furosemide 40 MG Tab PO SCH (07:54)
[2016-07-13] MEDS: predniSONE 10 MG Tab PO SCH (07:54)
[2016-07-13] MEDS: Fluticasone Propionate 220 MCG/Puff 12 GM Inhaler INH SCH ×2 (07:55→20:00)
[2016-07-13] MEDS: Levothyroxine 100 MCG Tab PO SCH (07:55)
[2016-07-13] MEDS: BROVANA INH SCH ×2 (07:55→20:07)
[2016-07-13] MEDS: Ketoconazole 2% Crm 30 GM Tube TOP SCH ×2 (07:55→20:25)
[2016-07-13] MEDS: Nystatin Susp 100,000 Unit/ML 5 ML UD Cup PO SCH ×4 (07:55→20:01)
[2016-07-13] MEDS: Metoprolol Succinate 25 MG Tab.ER PO SCH ×2 (12:04→12:08)
[2016-07-13] MEDS: GENTLE IRON PO SCH (12:05)
[2016-07-13] MEDS: Lactobacillus Acidophilus/Lactobacillus Sporogenes (Probiotic) Tab PO SCH (12:05)
[2016-07-13] MEDS: VITAMIN D3 PO SCH (12:05)
[2016-07-13] MEDS: Montelukast 10 MG Tab PO SCH (12:05)
[2016-07-13] MEDS: TYLENOL SINUS PO SCH (12:06)
[2016-07-13] MEDS: Cetirizine 10 MG Tab PO SCH (12:07)
[2016-07-13] MEDS: Multivitamins with Iron/Calcium/Folic Acid/Minerals Tab PO SCH (12:07)
[2016-07-13] MEDS: Melatonin 3 MG Tab PO SCH (20:01)
[2016-07-14] MEDS: XOPENEX INHALER INH PRN (00:04)
[2016-07-14] MEDS: Ipratropium 0.02% 0.5 MG/2.5 ML Neb Soln NEB SCH ×4 (02:21→19:40)
[2016-07-14] MEDS: Levothyroxine 100 MCG Tab PO SCH (06:33)
[2016-07-14] MEDS: Fluticasone Propionate 220 MCG/Puff 12 GM Inhaler INH SCH ×2 (08:54→19:41)
[2016-07-14] MEDS: Furosemide 40 MG Tab PO SCH (08:55)
[2016-07-14] MEDS: predniSONE 10 MG Tab PO SCH (08:56)
[2016-07-14] MEDS: Omeprazole 20 MG Cap.CR PO SCH (08:56)
[2016-07-14] MEDS: BROVANA INH SCH ×2 (08:57→19:41)
[2016-07-14] MEDS: Nystatin Susp 100,000 Unit/ML 5 ML UD Cup PO SCH ×4 (08:58→19:41)
[2016-07-14] MEDS: Ascorbic Acid 500 MG Tab PO SCH (08:58)
[2016-07-14] MEDS: Metoprolol Succinate 25 MG Tab.ER PO SCH (08:58)
--- NOTE | 2016-07-14 09:25 | PCM.PN ---
- General Info Date of Service: 07/14/16 Functional Status: Reports: pain controlled - Review of Systems General: Reports: Weakness HEENT: Reports: no symptoms Pulmonary: Reports: shortness of breath Cardiovascular: Reports: No Symptoms Gastrointestinal: Reports: No symptoms Genitourinary: Reports: frequency Musculoskeletal: Reports: back pain Skin: Reports: no symptoms Neurological: Reports: Weakness Psychiatric: Reports: no symptoms - Patient Data Vitals - most recent: Last Vital Signs Temp 36.4 C 07/13/16 20:00 Pulse 104 H 07/14/16 08:58 Resp 16 07/13/16 20:00 BP 105/44 L 07/14/16 08:58 Pulse Ox 97 07/13/16 20:00 Weight - most recent: 61.235 kg I&O - last 24 hours: Intake & Output 07/13/16 07/14/16 07/14/16 22:59 06:59 14:59 Intake Total 300 100 Balance 300 100 Med Orders - Current: Current Medications Acetaminophen (Tylenol) 650 mg PO Q4H PRN PRN Reason: Other Last Admin: 07/07/16 09:17 Dose: 650 mg Ascorbic Acid (Vitamin C) 500 mg PO DAILY [facility] Last Admin: 07/14/16 08:58 Dose: 500 mg Calamine/Phenol (Calmoseptine) 0.1 gm TOP QID PRN PRN Reason: Agitation Last Admin: 07/08/16 21:56 Dose: 1 applic Cetirizine HCl (Zyrtec) 10 mg PO DAILY@1200 [facility] Last Admin: 07/13/16 12:07 Dose: 10 mg Fluticasone Propionate (Flovent Hfa 220 Mcg) 0 gm INH BID [facility] Last Admin: 07/14/16 08:54 Dose: 2 puff Furosemide (Lasix) 40 mg PO DAILY [facility] Last Admin: 07/14/16 08:55 Dose: 40 mg Sodium Chloride (Normal Saline) 1,000 mls @ 30 mls/hr IV ASDIRECTED [facility] Ipratropium [place] (Atrovent) 0.5 mg NEB Q6H [facility] Last Admin: 07/14/16 08:53 Dose: 0.5 mg Ketoconazole (Nizoral 2% Crm) 0 gm TOP BID [facility] Last Admin: 07/13/16 20:25 Dose: 1 applic Lactobacillus Acidophilus (Acidolphilus Extra Strength) 1 tab PO DAILY@1200 [facility] Last Admin: 07/13/16 12:05 Dose: 1 tab Levothyroxine Sodium (Synthroid) 100 mcg PO ACBREAKFAST [facility] Last Admin: 07/14/16 06:33 Dose: 100 mcg Melatonin (Melatonin) 3 mg PO BEDTIME [facility] Last Admin: 07/13/16 20:01 Dose: 3 mg Metoprolol Succinate (Toprol Xl) 25 mg PO DAILY@0800 [facility] Last Admin: 07/14/16 08:58 Dose: 25 mg Montelukast Sodium (Singulair) 10 mg PO DAILY@1200 [facility] Last Admin: 07/13/16 12:05 Dose: 10 mg Morphine Sulfate (Morphine) 0.5 mg SUBCUT Q2H PRN PRN Reason: Shortness of Breath Last Admin: 07/08/16 15:51 Dose: 0.5 mg Multivitamins/Minerals (Thera M Plus) 1 tab PO 1200 [facility] Last Admin: 07/13/16 12:07 Dose: 1 tab Tylenol Sinus 1 each PO 1200 [facility] Last Admin: 07/13/16 12:06 Dose: 1 each Gentle Iron 1 each PO 1200 [facility] Last Admin: 07/13/16 12:05 Dose: 1 each Vitamin D3 400iu 1 each PO 1200 [facility] Last Admin: 07/13/16 12:05 Dose: 1 each Brovana 1 each INH BID [facility] Last Admin: 07/14/16 08:57 Dose: 1 each Xopenex Inhaler 2 each INH SEECOMMENT PRN PRN Reason: COPD Last Admin: 07/14/16 00:04 Dose: 2 each Nystatin (Nystatin Crm) 1 gm TOP TID PRN PRN Reason: Other Nystatin (Mycostatin) 5 ml PO QID [facility] Last Admin: 07/14/16 08:58 Dose: 5 ml Omeprazole (Omeprazole) 20 mg PO DAILY [facility] Last Admin: 07/14/16 08:56 Dose: Not Given Ondansetron HCl (Zofran) 4 mg IV Q4H PRN PRN Reason: Nausea Prednisone (Prednisone) 40 mg PO DAILY [facility] Last Admin: 07/14/16 08:56 Dose: 40 mg Sodium Chloride (Saline Flush) 10 ml IV ASDIRECTED [facility] Discontinued Medications Amoxicillin/Clavulanate Potassium (Augmentin 875 Mg/125 Mg) 1 tab PO Q12HR [facility] Stop: 07/05/16 20:01 Last Admin: 07/05/16 19:27 Dose: 1 tab Arformoterol Tartrate (Brovana) 15 mcg NEB BID [facility] Last Admin: 07/04/16 09:31 Dose: 15 mcg Budesonide (Pulmicort) 0.5 mg INH BID [facility] Last Admin: 07/04/16 10:23 Dose: Not Given Calcium Carbonate (Caltrate 600+D 1500 Mg-400 Units) 1 tab PO 1200 [facility] Last Admin: 07/03/16 12:48 Dose: Not Given Cetirizine HCl (Zyrtec) 10 mg PO 1200 [facility] Last Admin: 07/11/16 13:21 Dose: Not Given Ferrous Gluconate (Ferrous Gluconate) 324 mg PO 1200 [facility] Last Admin: 07/03/16 12:49 Dose: Not Given Formoterol Fumarate (Perforomist) 20 mcg INH BID [facility] Ipratropium [place] (Atrovent) 0.5 mg NEB TID [facility] Last Admin: 07/11/16 20:24 Dose: 0.5 mg Ipratropium [place] (Atrovent) 0.5 mg NEB Q6HR [facility] Last Admin: 07/12/16 09:01 Dose: Not Given Lactobacillus Acidophilus (Acidolphilus Extra Strength) 1 tab PO 1200 [facility] Last Admin: 07/11/16 12:30 Dose: 1 tab Lactobacillus Acidophilus (Acidolphilus Extra Strength) Confirm Administered Dose 1 tab .ROUTE .STK-MED ONE Stop: 07/11/16 12:40 Last Admin: 07/11/16 13:01 Dose: Not Given Levalbuterol HCl (Xopenex) 1.25 mg INH Q4H [facility] Last Admin: 07/04/16 09:44 Dose: 1.25 mg Lorazepam (Ativan) Confirm Administered Dose 2 mg .ROUTE .STK-MED ONE Stop: 07/03/16 06:49 Last Admin: 07/03/16 07:06 Dose: 2 mg Lorazepam (Ativan) 0.25 mg IVPUSH ONETIME ONE Stop: 07/03/16 06:53 Last Admin: 07/03/16 07:19 Dose: Not Given Methylprednisolone Sodium Succinate (Solu-Medrol) 125 mg IVPUSH Q12H [facility] Last Admin: 07/04/16 10:22 Dose: Not Given Methylprednisolone Sodium Succinate (Solu-Medrol) 125 mg IM Q12H [facility] Last Admin: 07/07/16 06:06 Dose: Not Given Methylprednisolone Sodium Succinate (Solu-Medrol) 125 mg IM DAILY [facility] Last Admin: 07/10/16 07:53 Dose: 125 mg Metoprolol Succinate (Toprol Xl) 25 mg PO 1200 [facility] Last Admin: 07/11/16 13:21 Dose: Not Given Metoprolol Succinate (Toprol Xl) Confirm Administered Dose 25 mg .ROUTE .STK- MED ONE Stop: 07/11/16 12:50 Last Admin: 07/11/16 12:59 Dose: 25 mg Metoprolol Succinate (Toprol Xl) 25 mg PO DAILY@1200 [facility] Last Admin: 07/13/16 12:08 Dose: Not Given Montelukast Sodium (Singulair) 10 mg PO 1200 [facility] Last Admin: 07/11/16 12:30 Dose: 10 mg Montelukast Sodium (Singulair) Confirm Administered Dose 10 mg .ROUTE .STK-MED ONE Stop: 07/11/16 12:49 Last Admin: 07/11/16 13:01 Dose: Not Given Morphine Sulfate (Morphine) Confirm Administered Dose 2 mg .ROUTE .STK-MED ONE Stop: 07/03/16 12:57 Last Admin: 07/03/16 13:21 Dose: 0.5 mg Xopenex Inhaler 0 - 2 each INH SEECOMMENT PRN PRN Reason: COPD Ondansetron HCl (Zofran Odt) Confirm Administered Dose 4 mg .ROUTE .STK-MED ONE Stop: 07/04/16 05:18 Last Admin: 07/04/16 05:29 Dose: 4 mg Tuberculin PPD (Aplisol) 5 unit IDERM ONETIME ONE Stop: 07/02/16 11:30 Last Admin: 07/03/16 14:55 Dose: 5 unit Vancomycin HCl (Vancomycin) 0.125 gm PO QID [facility] Stop: 07/11/16 20:00 Last Admin: 07/11/16 20:28 Dose: 0.125 gm - Exam Quality Assessment: supplemental oxygen General: alert, oriented, cooperative HEENT: Pupils equal, Pupils reactive, EOMI Neck: supple Lungs: Normal respiratory effort, Decreased breath sounds Cardiovascular: Regular Rate, Regular Rhythm Abdomen: bowel sounds present Back Exam: normal inspection Extremities: no edema Peripheral Pulses: 1+: dorsalis pedis (L), dorsalis pedis (R) Skin: warm, dry, intact Neurological: no new focal deficit Psy/Mental Status: alert, normal affect, normal mood - Problem List & Annotations (1) COPD exacerbation SNOMED Code(s): 587390596, 674323040 Code(s): J44.1 - CHRONIC OBSTRUCTIVE PULMONARY DISEASE W (ACUTE) EXACERBATION Status: Acute Priority: High Current Visit: Yes (2) Clostridium difficile diarrhea SNOMED Code(s): 173918298, 527713568 Code(s): A04.7 - ENTEROCOLITIS DUE TO CLOSTRIDIUM DIFFICILE Status: Acute Priority: Medium Current Visit: Yes (3) CHF (congestive heart failure) SNOMED Code(s): 83625944 Code(s): I50.9 - HEART FAILURE, UNSPECIFIED Status: Chronic Priority: Medium Current Visit: Yes Qualifiers: Congestive heart failure type: unspecified congestive heart failure type Congestive heart failure chronicity: chronic Qualified Code(s): I50.9 - Heart failure, unspecified (4) Colon cancer SNOMED Code(s): 658440552 Code(s): C18.9 - MALIGNANT NEOPLASM OF COLON, UNSPECIFIED Status: Chronic Priority: Medium Current Visit: Yes Qualifiers: Colon location: unspecified part of colon Qualified Code(s): C18.9 - Malignant neoplasm of colon, unspecified (5) Hypothyroidism SNOMED Code(s): 35770290 Code(s): E03.9 - HYPOTHYROIDISM, UNSPECIFIED Status: Chronic Priority: Medium Current Visit: Yes Qualifiers: Hypothyroidism type: acquired Qualified Code(s): E03.9 - Hypothyroidism, unspecified (6) Pneumonia SNOMED Code(s): 633401383 Code(s): J18.9 - PNEUMONIA, UNSPECIFIED ORGANISM Status: Resolved Priority: High Current Visit: No Qualifiers: Pneumonia type: due to unspecified organism Laterality: right Lung location: lower lobe of lung Qualified Code(s): J18.1 - Lobar pneumonia, unspecified organism (7) Generalized weakness SNOMED Code(s): 74409829 Code(s): R53.1 - WEAKNESS Status: Acute Priority: High Current Visit: Yes - Problem List Review Problem List Initiated/Reviewed/Updated: Yes - My Orders Last 24 Hours: My Active Orders 07/14/16 08:00 Metoprolol Succinate [Toprol XL] 25 mg PO DAILY@0800 - Plan Plan:: Patient to continue on antibiotics orally for full course of vanco and 3 more days of augmentin. Patient will start PT/OT for generalized weakness. We will continue IVF hydration at this time. Discussed colon cancer diagnosis and there are no plans for further workup or management as prior Oncologist would not do any further intervention due to severe COPD. Patient to be on current COPD management. We will continue to slowly taper solumedrol. 07/07/16 Discussed sob symptoms and likelihood of her symptoms being her baseline. She continues to be on methylprednisolone and we will taper to daily today. Discussed future plans of care center or discharge and patient/daughter agree that they do not want the care center and would rather go home. 07/14/16 Patient has continued with taper of steroids - with Dr. Dempsey tapering to 40mg prednisone orally. We will continue to taper. Patient is doing well with taper with no increase in sob. Discussed lung cancer with patient and daughter and per family they are not going to do anything more as per daughter the Doctors are unwilling to continue further management/treatment due to her severe COPD. Continuing PT/OT.
[2016-07-14] MEDS: Ketoconazole 2% Crm 30 GM Tube TOP SCH ×2 (09:27→19:41)
[2016-07-14] MEDS: TYLENOL SINUS PO SCH (12:25)
[2016-07-14] MEDS: GENTLE IRON PO SCH (12:25)
[2016-07-14] MEDS: VITAMIN D3 PO SCH (12:26)
[2016-07-14] MEDS: Lactobacillus Acidophilus/Lactobacillus Sporogenes (Probiotic) Tab PO SCH (13:58)
[2016-07-14] MEDS: Cetirizine 10 MG Tab PO SCH (13:58)
[2016-07-14] MEDS: Montelukast 10 MG Tab PO SCH (13:59)
[2016-07-14] MEDS: Multivitamins with Iron/Calcium/Folic Acid/Minerals Tab PO SCH (14:01)
[2016-07-14] MEDS: Melatonin 3 MG Tab PO SCH (19:41)
[2016-07-15] MEDS: XOPENEX INHALER INH PRN ×3 (00:06→14:06)
[2016-07-15] MEDS: Ipratropium 0.02% 0.5 MG/2.5 ML Neb Soln NEB SCH ×4 (01:47→20:43)
[2016-07-15] MEDS: Levothyroxine 100 MCG Tab PO SCH (05:57)
[2016-07-15] MEDS: predniSONE 10 MG Tab PO SCH (08:00)
[2016-07-15] MEDS: Furosemide 40 MG Tab PO SCH (08:01)
[2016-07-15] MEDS: Omeprazole 20 MG Cap.CR PO SCH (08:01)
[2016-07-15] MEDS: Ketoconazole 2% Crm 30 GM Tube TOP SCH ×2 (08:01→21:24)
[2016-07-15] MEDS: Ascorbic Acid 500 MG Tab PO SCH (08:01)
[2016-07-15] MEDS: Metoprolol Succinate 25 MG Tab.ER PO SCH (08:01)
[2016-07-15] MEDS: Nystatin Susp 100,000 Unit/ML 5 ML UD Cup PO SCH ×4 (08:03→21:24)
[2016-07-15] MEDS: Fluticasone Propionate 220 MCG/Puff 12 GM Inhaler INH SCH ×2 (08:54→20:44)
[2016-07-15] MEDS: BROVANA INH SCH ×2 (08:55→21:24)
[2016-07-15] MEDS: Lactobacillus Acidophilus/Lactobacillus Sporogenes (Probiotic) Tab PO SCH (13:09)
[2016-07-15] MEDS: Montelukast 10 MG Tab PO SCH (13:09)
[2016-07-15] MEDS: Multivitamins with Iron/Calcium/Folic Acid/Minerals Tab PO SCH (13:10)
[2016-07-15] MEDS: TYLENOL SINUS PO SCH (13:10)
[2016-07-15] MEDS: VITAMIN D3 PO SCH (13:10)
[2016-07-15] MEDS: GENTLE IRON PO SCH (13:10)
[2016-07-15] MEDS: Cetirizine 10 MG Tab PO SCH (13:10)
[2016-07-15] MEDS: Melatonin 3 MG Tab PO SCH (20:43)
[2016-07-16] MEDS: Ipratropium 0.02% 0.5 MG/2.5 ML Neb Soln NEB SCH ×4 (02:17→20:49)
[2016-07-16] MEDS: Levothyroxine 100 MCG Tab PO SCH (07:55)
[2016-07-16] MEDS: predniSONE 10 MG Tab PO SCH (07:56)
[2016-07-16] MEDS: Ketoconazole 2% Crm 30 GM Tube TOP SCH ×2 (07:58→20:51)
[2016-07-16] MEDS: Furosemide 40 MG Tab PO SCH (07:58)
[2016-07-16] MEDS: Omeprazole 20 MG Cap.CR PO SCH (07:58)
[2016-07-16] MEDS: Metoprolol Succinate 25 MG Tab.ER PO SCH (07:58)
[2016-07-16] MEDS: Nystatin Susp 100,000 Unit/ML 5 ML UD Cup PO SCH ×4 (07:58→20:52)
[2016-07-16] MEDS: Ascorbic Acid 500 MG Tab PO SCH (07:59)
[2016-07-16] MEDS: Fluticasone Propionate 220 MCG/Puff 12 GM Inhaler INH SCH ×2 (08:04→20:49)
[2016-07-16] MEDS: BROVANA INH SCH ×2 (08:05→20:51)
[2016-07-16] MEDS: VITAMIN D3 PO SCH (12:01)
[2016-07-16] MEDS: Cetirizine 10 MG Tab PO SCH (12:01)
[2016-07-16] MEDS: GENTLE IRON PO SCH (12:01)
[2016-07-16] MEDS: TYLENOL SINUS PO SCH (12:01)
[2016-07-16] MEDS: Lactobacillus Acidophilus/Lactobacillus Sporogenes (Probiotic) Tab PO SCH (12:01)
[2016-07-16] MEDS: Montelukast 10 MG Tab PO SCH (12:01)
[2016-07-16] MEDS: Multivitamins with Iron/Calcium/Folic Acid/Minerals Tab PO SCH (12:02)
[2016-07-16] MEDS: XOPENEX INHALER INH PRN (12:18)
[2016-07-16] MEDS: Melatonin 3 MG Tab PO SCH (20:51)
[2016-07-17] MEDS: Ipratropium 0.02% 0.5 MG/2.5 ML Neb Soln NEB SCH ×4 (02:20→20:15)
[2016-07-17] MEDS: XOPENEX INHALER INH PRN ×2 (03:05→07:11)
[2016-07-17] MEDS: Levothyroxine 100 MCG Tab PO SCH (07:09)
[2016-07-17] MEDS: predniSONE 10 MG Tab PO SCH (07:10)
[2016-07-17] MEDS: Nystatin Susp 100,000 Unit/ML 5 ML UD Cup PO SCH ×4 (07:10→20:28)
[2016-07-17] MEDS: Omeprazole 20 MG Cap.CR PO SCH (07:10)
[2016-07-17] MEDS: Furosemide 40 MG Tab PO SCH (07:10)
[2016-07-17] MEDS: Ascorbic Acid 500 MG Tab PO SCH (07:10)
[2016-07-17] MEDS: Fluticasone Propionate 220 MCG/Puff 12 GM Inhaler INH SCH ×2 (07:11→20:20)
[2016-07-17] MEDS: Metoprolol Succinate 25 MG Tab.ER PO SCH (07:12)
[2016-07-17] MEDS: BROVANA INH SCH ×2 (07:15→20:28)
[2016-07-17] MEDS: Ketoconazole 2% Crm 30 GM Tube TOP SCH ×2 (11:50→22:00)
[2016-07-17] MEDS: GENTLE IRON PO SCH (11:51)
[2016-07-17] MEDS: Montelukast 10 MG Tab PO SCH (11:51)
[2016-07-17] MEDS: Lactobacillus Acidophilus/Lactobacillus Sporogenes (Probiotic) Tab PO SCH (11:51)
[2016-07-17] MEDS: Cetirizine 10 MG Tab PO SCH (11:51)
[2016-07-17] MEDS: TYLENOL SINUS PO SCH (11:52)
[2016-07-17] MEDS: VITAMIN D3 PO SCH (11:52)
[2016-07-17] MEDS: Multivitamins with Iron/Calcium/Folic Acid/Minerals Tab PO SCH (11:52)
--- NOTE | 2016-07-17 15:19 | PCM.DCSUM1 ---
Discharge Summary - Hospital Course Brief History: This is an 80yo F who was admitted for weakness, CHF, COPD exacerbation with extreme sob, and back pain for [facility] care and rehabilitation after a recent hospital admission for hypoxia, COPD exacerbation and Clostridium difficile diarrhea. She has a diagnosis of malignant colon cancer that is not being treated due to her co-morbidities. - Discharge Data Discharge Date: 07/18/16 Discharge Disposition: Home, W Home Health Agency 06 Condition: Stable - Discharge Diagnosis/Problem(s) (1) COPD exacerbation SNOMED Code(s): 597628257, 826941976 ICD Code: J44.1 - CHRONIC OBSTRUCTIVE PULMONARY DISEASE W (ACUTE) EXACERBATION Status: Acute Priority: High Current Visit: Yes (2) Clostridium difficile diarrhea SNOMED Code(s): 241525117, 431519350 ICD Code: A04.7 - ENTEROCOLITIS DUE TO CLOSTRIDIUM DIFFICILE Status: Acute Priority: Medium Current Visit: Yes (3) CHF (congestive heart failure) SNOMED Code(s): 55075358 ICD Code: I50.9 - HEART FAILURE, UNSPECIFIED Status: Chronic Priority: Medium Current Visit: Yes Qualifiers: Congestive heart failure type: unspecified congestive heart failure type Congestive heart failure chronicity: chronic Qualified Code(s): I50.9 - Heart failure, unspecified (4) Colon cancer SNOMED Code(s): 603937388 ICD Code: C18.9 - MALIGNANT NEOPLASM OF COLON, UNSPECIFIED Status: Chronic Priority: Medium Current Visit: Yes Qualifiers: Colon location: unspecified part of colon Qualified Code(s): C18.9 - Malignant neoplasm of colon, unspecified (5) Hypothyroidism SNOMED Code(s): 59157874 ICD Code: E03.9 - HYPOTHYROIDISM, UNSPECIFIED Status: Chronic Priority: Medium Current Visit: Yes Qualifiers: Hypothyroidism type: acquired Qualified Code(s): E03.9 - Hypothyroidism, unspecified (6) Pneumonia SNOMED Code(s): 238724373 ICD Code: J18.9 - PNEUMONIA, UNSPECIFIED ORGANISM Status: Resolved Priority: High Current Visit: No Qualifiers: Pneumonia type: due to unspecified organism Laterality: right Lung location: lower lobe of lung Qualified Code(s): J18.1 - Lobar pneumonia, unspecified organism (7) Generalized weakness SNOMED Code(s): 39757462 ICD Code: R53.1 - WEAKNESS Status: Acute Priority: High Current Visit: Yes - Patient Summary/Data Consults: Consultations 07/02/16 11:29 Consult to [employer] Manager [CONS] Routine Comment: Physician Instructions: Quantity: Consult to Home Health [CONS] Routine Comment: Physician Instructions: Consult to Infection Prevention [CONS] Routine Comment: Physician Instructions: Consult to Message [employer] Service Pricer [CONS] Routine Comment: Physician Instructions: OT Evaluation and Treatment [CONS] Routine Please Evaluate and Treat. OT Reason for Consult: ADL's This query below is only for informational purposes and is not editable. Admission Diagnosis/Problem: Weakness PT Evaluation and Treatment [CONS] Routine Please Evaluate and Treat. PT Reason for Consult: Ambulation This query below is only for informational purposes and is not editable. Admission Diagnosis/Problem: Weakness Hospital Course: This patient was seen on 07/17/16 for discharge planning and a face to face for home health admission. She was diagnosed with a stage 2 decubitus ulcer which will require home health assessment and care due to her inability to ambulate short distances without severe sob and oxygen saturation from the combination of her end-stage COPD, and CHF. This patient's oxygen saturation drops 10-20% from her 93-94% range with minimal movements and activity just in bed as a baseline. - Patient Instructions Diet: Low Sodium, Fluid Restriction Activity: As Tolerated, No Strenuous Activities Driving: Do Not Drive - Discharge Plan Prescriptions/Med Rec: Acidophilus/Lactobac Spor [Acidolphilus X-Strength] 1 tab PO DAILY@1200 #90 tablet Adhesive Tape [All Purpose Cloth Tape] 1 each TP DAILY #2 tape Foam Bandage [Mepilex Border Sacrum] 1 each TP DAILY #60 bandage Non-Adherent Bandage [Non-Stick Pad] 1 each TP DAILY #60 bandage Home Medications: Home Meds Ascorbic Acid [Vitamin C] 500 mg PO DAILY 06/26/16 [History] Fluticasone Propionate [Flovent HFA 220 MCG] 2 puff INH BID 06/26/16 [History] Furosemide 40 mg PO DAILY 06/26/16 [History] Ipratropium [facility] 0.2 mg IH Q4H PRN 06/26/16 [History] Levalbuterol Tartrate [Xopenex HFA] 1 puff INH Q4HR PRN 06/26/16 [History] Levothyroxine [Synthroid] 100 mcg PO ACBREAKFAST tablet 07/02/16 [Rx] Loperamide [Imodium] 2 mg PO Q4H PRN #30 cap 07/02/16 [Rx] Metoprolol Succinate [Toprol XL] 25 mg PO 1200 tab.er 07/02/16 [Rx] Montelukast [Singulair] 10 mg PO 1200 tablet 07/02/16 [Rx] Arformoterol [Brovana] 1 puff INH BID 07/09/16 [History] Cholecalciferol (Vitamin D3) [Vitamin D3] 400 unit PO DAILY 07/09/16 [History] Iron 18 mg PO DAILY 07/09/16 [History] Multivitamin [Multi-Day Vitamins] 1 each PO DAILY 07/09/16 [History] Omeprazole 20 mg PO DAILY 07/09/16 [History] guaiFEN/Phenyleph/Acetaminophn [Tylenol Sinus Severe Caplet] 1 each PO DAILY [History] Acetaminophen [Tylenol] 650 mg PO Q4H PRN #0 tablet 07/17/16 [Rx] Acidophilus/Lactobac Spor [Acidolphilus X-Strength] 1 tab PO DAILY@1200 #90 tablet 07/17/16 [Rx] Adhesive Tape [All Purpose Cloth Tape] 1 each TP DAILY #2 tape 07/17/16 [Rx] Cetirizine [ZyrTEC] 10 mg PO DAILY@1200 tablet 07/17/16 [Rx] Foam Bandage [Mepilex Border Sacrum] 1 each TP DAILY #60 bandage 07/17/16 [Rx] Ketoconazole [Nizoral 2% Crm] 0 gm TOP BID tube 07/17/16 [Rx] Melatonin 3 mg PO BEDTIME tablet 07/17/16 [Rx] Menthol/Zinc Oxide [Calmoseptine] 0.1 gm TOP QID PRN #0 tube 07/17/16 [Rx] Non-Adherent Bandage [Non-Stick Pad] 1 each TP DAILY #60 bandage 07/17/16 [Rx] Non-Formulary Medication [NF Drug] 1 each INH BID each 07/17/16 [Rx] Non-Formulary Medication [NF Drug] 1 each PO 1200 each 07/17/16 [Rx] Non-Formulary Medication [NF Drug] 1 each PO 1200 each 07/17/16 [Rx] Non-Formulary Medication [NF Drug] 1 each PO 1200 each 07/17/16 [Rx] Non-Formulary Medication [NF Drug] 2 each INH SEECOMMENT PRN #0 each 07/17/16 [ Rx] Nystatin [Nystatin Crm] 1 gm TOP TID PRN #0 tube 07/17/16 [Rx] - Discharge Summary/Plan Comment DC Time >30 min.: Yes Discharge Summary/Plan Comment: 1) End-Stage COPD - on home oxygen 2.5L - This is a baseline home use and with any minimal exertion or stress patient develops dyspnea. 2) CHF - stable 3) Severe physical deconditioning that has been progressive since August 2014. Patient remains in bed most of 24hrs in a day and only moves a little at a time but is usually unable to due to dyspnea. 4) Hypothyroidism - Controlled with medications 5) Colon cancer - deemed a high surgical risk and no further intervention per Oncology Patient to be discharged 07/18/16 with Home care assessment and management of decubitus stage 2 ulceration. Patient plan discussed with daughter who lives with patient and both agree with current plan of care and f/u in clinic as discussed. - Patient Data Vitals - Most Recent: Last Vital Signs Temp 37.3 C 07/16/16 08:42 Pulse 91 07/17/16 08:27 Resp 18 07/17/16 08:27 BP 134/61 07/17/16 08:27 Pulse Ox 91 L 07/17/16 08:27 Weight - Most Recent: 61.235 kg I&O - Last 24 hours: Intake & Output 07/17/16 07/17/16 07/17/16 06:59 14:59 22:59 Intake Total 350 Balance 350 Med Orders - Current: Current Medications Acetaminophen (Tylenol) 650 mg PO Q4H PRN PRN Reason: Other Last Admin: 07/07/16 09:17 Dose: 650 mg Ascorbic Acid (Vitamin C) 500 mg PO DAILY [facility] Last Admin: 07/17/16 07:10 Dose: 500 mg Calamine/Phenol (Calmoseptine) 0.1 gm TOP QID PRN PRN Reason: Agitation Last Admin: 07/08/16 21:56 Dose: 1 applic Cetirizine HCl (Zyrtec) 10 mg PO DAILY@1200 [facility] Last Admin: 07/17/16 11:51 Dose: 10 mg Fluticasone Propionate (Flovent Hfa 220 Mcg) 0 gm INH BID [facility] Last Admin: 07/17/16 07:11 Dose: 1 puff Furosemide (Lasix) 40 mg PO DAILY [facility] Last Admin: 07/17/16 07:10 Dose: 40 mg Sodium Chloride (Normal Saline) 1,000 mls @ 30 mls/hr IV ASDIRECTED [facility] Ipratropium [facility] (Atrovent) 0.5 mg NEB Q6H [facility] Last Admin: 07/17/16 07:09 Dose: 0.5 mg Ketoconazole (Nizoral 2% Crm) 0 gm TOP BID [facility] Last Admin: 07/17/16 11:50 Dose: 1 applic Lactobacillus Acidophilus (Acidolphilus Extra Strength) 1 tab PO DAILY@1200 [facility] Last Admin: 07/17/16 11:51 Dose: 1 tab Levothyroxine Sodium (Synthroid) 100 mcg PO ACBREAKFAST [facility] Last Admin: 07/17/16 07:09 Dose: 100 mcg Melatonin (Melatonin) 3 mg PO BEDTIME [facility] Last Admin: 07/16/16 20:51 Dose: 3 mg Metoprolol Succinate (Toprol Xl) 25 mg PO DAILY@0800 [facility] Last Admin: 07/17/16 07:12 Dose: 25 mg Montelukast Sodium (Singulair) 10 mg PO DAILY@1200 [facility] Last Admin: 07/17/16 11:51 Dose: 10 mg Morphine Sulfate (Morphine) 0.5 mg SUBCUT Q2H PRN PRN Reason: Shortness of Breath Last Admin: 07/08/16 15:51 Dose: 0.5 mg Multivitamins/Minerals (Thera M Plus) 1 tab PO 1200 [facility] Last Admin: 07/17/16 11:52 Dose: 1 tab Tylenol Sinus 1 each PO 1200 [facility] Last Admin: 07/17/16 11:52 Dose: 1 each Gentle Iron 1 each PO 1200 [facility] Last Admin: 07/17/16 11:51 Dose: 1 each Vitamin D3 400iu 1 each PO 1200 [facility] Last Admin: 07/17/16 11:52 Dose: 1 each Brovana 1 each INH BID [facility] Last Admin: 07/17/16 07:15 Dose: 1 each Xopenex Inhaler 2 each INH SEECOMMENT PRN PRN Reason: COPD Last Admin: 07/17/16 07:11 Dose: 2 each Nystatin (Nystatin Crm) 1 gm TOP TID PRN PRN Reason: Other Nystatin (Mycostatin) 5 ml PO QID [facility] Last Admin: 07/17/16 11:51 Dose: 5 ml Omeprazole (Omeprazole) 20 mg PO DAILY [facility] Last Admin: 07/17/16 07:10 Dose: 20 mg Ondansetron HCl (Zofran) 4 mg IV Q4H PRN PRN Reason: Nausea Prednisone (Prednisone) 40 mg PO DAILY [facility] Last Admin: 07/17/16 07:10 Dose: 40 mg Sodium Chloride (Saline Flush) 10 ml IV ASDIRECTED [facility] Discontinued Medications Amoxicillin/Clavulanate Potassium (Augmentin 875 Mg/125 Mg) 1 tab PO Q12HR [facility] Stop: 07/05/16 20:01 Last Admin: 07/05/16 19:27 Dose: 1 tab Arformoterol Tartrate (Brovana) 15 mcg NEB BID [facility] Last Admin: 07/04/16 09:31 Dose: 15 mcg Budesonide (Pulmicort) 0.5 mg INH BID [facility] Last Admin: 07/04/16 10:23 Dose: Not Given Calcium Carbonate (Caltrate 600+D 1500 Mg-400 Units) 1 tab PO 1200 [facility] Last Admin: 07/03/16 12:48 Dose: Not Given Cetirizine HCl (Zyrtec) 10 mg PO 1200 [facility] Last Admin: 07/11/16 13:21 Dose: Not Given Ferrous Gluconate (Ferrous Gluconate) 324 mg PO 1200 [facility] Last Admin: 07/03/16 12:49 Dose: Not Given Formoterol Fumarate (Perforomist) 20 mcg INH BID [facility] Ipratropium [facility] (Atrovent) 0.5 mg NEB TID [facility] Last Admin: 07/11/16 20:24 Dose: 0.5 mg Ipratropium [facility] (Atrovent) 0.5 mg NEB Q6HR [facility] Last Admin: 07/12/16 09:01 Dose: Not Given Lactobacillus Acidophilus (Acidolphilus Extra Strength) 1 tab PO 1200 [facility] Last Admin: 07/11/16 12:30 Dose: 1 tab Lactobacillus Acidophilus (Acidolphilus Extra Strength) Confirm Administered Dose 1 tab .ROUTE .STK-MED ONE Stop: 07/11/16 12:40 Last Admin: 07/11/16 13:01 Dose: Not Given Levalbuterol HCl (Xopenex) 1.25 mg INH Q4H [facility] Last Admin: 07/04/16 09:44 Dose: 1.25 mg Lorazepam (Ativan) Confirm Administered Dose 2 mg .ROUTE .STK-MED ONE Stop: 07/03/16 06:49 Last Admin: 07/03/16 07:06 Dose: 2 mg Lorazepam (Ativan) 0.25 mg IVPUSH ONETIME ONE Stop: 07/03/16 06:53 Last Admin: 07/03/16 07:19 Dose: Not Given Methylprednisolone Sodium Succinate (Solu-Medrol) 125 mg IVPUSH Q12H [facility] Last Admin: 07/04/16 10:22 Dose: Not Given Methylprednisolone Sodium Succinate (Solu-Medrol) 125 mg IM Q12H [facility] Last Admin: 07/07/16 06:06 Dose: Not Given Methylprednisolone Sodium Succinate (Solu-Medrol) 125 mg IM DAILY [facility] Last Admin: 07/10/16 07:53 Dose: 125 mg Metoprolol Succinate (Toprol Xl) 25 mg PO 1200 [facility] Last Admin: 07/11/16 13:21 Dose: Not Given Metoprolol Succinate (Toprol Xl) Confirm Administered Dose 25 mg .ROUTE .STK- MED ONE Stop: 07/11/16 12:50 Last Admin: 07/11/16 12:59 Dose: 25 mg Metoprolol Succinate (Toprol Xl) 25 mg PO DAILY@1200 [facility] Last Admin: 07/13/16 12:08 Dose: Not Given Montelukast Sodium (Singulair) 10 mg PO 1200 [facility] Last Admin: 07/11/16 12:30 Dose: 10 mg Montelukast Sodium (Singulair) Confirm Administered Dose 10 mg .ROUTE .STK-MED ONE Stop: 07/11/16 12:49 Last Admin: 07/11/16 13:01 Dose: Not Given Morphine Sulfate (Morphine) Confirm Administered Dose 2 mg .ROUTE .STK-MED ONE Stop: 07/03/16 12:57 Last Admin: 07/03/16 13:21 Dose: 0.5 mg Xopenex Inhaler 0 - 2 each INH SEECOMMENT PRN PRN Reason: COPD Ondansetron HCl (Zofran Odt) Confirm Administered Dose 4 mg .ROUTE .STK-MED ONE Stop: 07/04/16 05:18 Last Admin: 07/04/16 05:29 Dose: 4 mg Tuberculin PPD (Aplisol) 5 unit IDERM ONETIME ONE Stop: 07/02/16 11:30 Last Admin: 07/03/16 14:55 Dose: 5 unit Vancomycin HCl (Vancomycin) 0.125 gm PO QID [facility] Stop: 07/11/16 20:00 Last Admin: 07/11/16 20:28 Dose: 0.125 gm *Q Meaningful Use (DIS) - VTE *Q VTE Criteria *Q: - Stroke *Q Stroke Criteria *Q: - AMI *Q AMI Criteria *Q:
[2016-07-17] MEDS: Acetaminophen 325 MG Tab PO PRN (15:36)
--- NOTE | 2016-07-17 15:45 | PCM.PN ---
- General Info Date of Service: 07/17/16 - Patient Data Vitals - most recent: Last Vital Signs Temp 37.3 C 07/16/16 08:42 Pulse 91 07/17/16 08:27 Resp 18 07/17/16 08:27 BP 134/61 07/17/16 08:27 Pulse Ox 91 L 07/17/16 08:27 Weight - most recent: 61.235 kg I&O - last 24 hours: Intake & Output 07/17/16 07/17/16 07/17/16 06:59 14:59 22:59 Intake Total 350 Balance 350 Med Orders - Current: Current Medications Acetaminophen (Tylenol) 650 mg PO Q4H PRN PRN Reason: Other Last Admin: 07/17/16 15:36 Dose: 650 mg Ascorbic Acid (Vitamin C) 500 mg PO DAILY [facility] Last Admin: 07/17/16 07:10 Dose: 500 mg Calamine/Phenol (Calmoseptine) 0.1 gm TOP QID PRN PRN Reason: Agitation Last Admin: 07/08/16 21:56 Dose: 1 applic Cetirizine HCl (Zyrtec) 10 mg PO DAILY@1200 [facility] Last Admin: 07/17/16 11:51 Dose: 10 mg Fluticasone Propionate (Flovent Hfa 220 Mcg) 0 gm INH BID [facility] Last Admin: 07/17/16 07:11 Dose: 1 puff Furosemide (Lasix) 40 mg PO DAILY [facility] Last Admin: 07/17/16 07:10 Dose: 40 mg Sodium Chloride (Normal Saline) 1,000 mls @ 30 mls/hr IV ASDIRECTED [facility] Ipratropium [place] (Atrovent) 0.5 mg NEB Q6H [facility] Last Admin: 07/17/16 15:36 Dose: 0.5 mg Ketoconazole (Nizoral 2% Crm) 0 gm TOP BID [facility] Last Admin: 07/17/16 11:50 Dose: 1 applic Lactobacillus Acidophilus (Acidolphilus Extra Strength) 1 tab PO DAILY@1200 [facility] Last Admin: 07/17/16 11:51 Dose: 1 tab Levothyroxine Sodium (Synthroid) 100 mcg PO ACBREAKFAST [facility] Last Admin: 07/17/16 07:09 Dose: 100 mcg Melatonin (Melatonin) 3 mg PO BEDTIME [facility] Last Admin: 07/16/16 20:51 Dose: 3 mg Metoprolol Succinate (Toprol Xl) 25 mg PO DAILY@0800 [facility] Last Admin: 07/17/16 07:12 Dose: 25 mg Montelukast Sodium (Singulair) 10 mg PO DAILY@1200 [facility] Last Admin: 07/17/16 11:51 Dose: 10 mg Morphine Sulfate (Morphine) 0.5 mg SUBCUT Q2H PRN PRN Reason: Shortness of Breath Last Admin: 07/08/16 15:51 Dose: 0.5 mg Multivitamins/Minerals (Thera M Plus) 1 tab PO 1200 [facility] Last Admin: 07/17/16 11:52 Dose: 1 tab Tylenol Sinus 1 each PO 1200 [facility] Last Admin: 07/17/16 11:52 Dose: 1 each Gentle Iron 1 each PO 1200 [facility] Last Admin: 07/17/16 11:51 Dose: 1 each Vitamin D3 400iu 1 each PO 1200 [facility] Last Admin: 07/17/16 11:52 Dose: 1 each Brovana 1 each INH BID [facility] Last Admin: 07/17/16 07:15 Dose: 1 each Xopenex Inhaler 2 each INH SEECOMMENT PRN PRN Reason: COPD Last Admin: 07/17/16 07:11 Dose: 2 each Nystatin (Nystatin Crm) 1 gm TOP TID PRN PRN Reason: Other Nystatin (Mycostatin) 5 ml PO QID [facility] Last Admin: 07/17/16 15:36 Dose: 5 ml Omeprazole (Omeprazole) 20 mg PO DAILY [facility] Last Admin: 07/17/16 07:10 Dose: 20 mg Ondansetron HCl (Zofran) 4 mg IV Q4H PRN PRN Reason: Nausea Prednisone (Prednisone) 40 mg PO DAILY [facility] Last Admin: 07/17/16 07:10 Dose: 40 mg Sodium Chloride (Saline Flush) 10 ml IV ASDIRECTED [facility] Discontinued Medications Amoxicillin/Clavulanate Potassium (Augmentin 875 Mg/125 Mg) 1 tab PO Q12HR [facility] Stop: 07/05/16 20:01 Last Admin: 07/05/16 19:27 Dose: 1 tab Arformoterol Tartrate (Brovana) 15 mcg NEB BID [facility] Last Admin: 07/04/16 09:31 Dose: 15 mcg Budesonide (Pulmicort) 0.5 mg INH BID [facility] Last Admin: 07/04/16 10:23 Dose: Not Given Calcium Carbonate (Caltrate 600+D 1500 Mg-400 Units) 1 tab PO 1200 [facility] Last Admin: 07/03/16 12:48 Dose: Not Given Cetirizine HCl (Zyrtec) 10 mg PO 1200 [facility] Last Admin: 07/11/16 13:21 Dose: Not Given Ferrous Gluconate (Ferrous Gluconate) 324 mg PO 1200 [facility] Last Admin: 07/03/16 12:49 Dose: Not Given Formoterol Fumarate (Perforomist) 20 mcg INH BID [facility] Ipratropium [place] (Atrovent) 0.5 mg NEB TID [facility] Last Admin: 07/11/16 20:24 Dose: 0.5 mg Ipratropium [place] (Atrovent) 0.5 mg NEB Q6HR [facility] Last Admin: 07/12/16 09:01 Dose: Not Given Lactobacillus Acidophilus (Acidolphilus Extra Strength) 1 tab PO 1200 [facility] Last Admin: 07/11/16 12:30 Dose: 1 tab Lactobacillus Acidophilus (Acidolphilus Extra Strength) Confirm Administered Dose 1 tab .ROUTE .STK-MED ONE Stop: 07/11/16 12:40 Last Admin: 07/11/16 13:01 Dose: Not Given Levalbuterol HCl (Xopenex) 1.25 mg INH Q4H [facility] Last Admin: 07/04/16 09:44 Dose: 1.25 mg Lorazepam (Ativan) Confirm Administered Dose 2 mg .ROUTE .STK-MED ONE Stop: 07/03/16 06:49 Last Admin: 07/03/16 07:06 Dose: 2 mg Lorazepam (Ativan) 0.25 mg IVPUSH ONETIME ONE Stop: 07/03/16 06:53 Last Admin: 07/03/16 07:19 Dose: Not Given Methylprednisolone Sodium Succinate (Solu-Medrol) 125 mg IVPUSH Q12H [facility] Last Admin: 07/04/16 10:22 Dose: Not Given Methylprednisolone Sodium Succinate (Solu-Medrol) 125 mg IM Q12H [facility] Last Admin: 07/07/16 06:06 Dose: Not Given Methylprednisolone Sodium Succinate (Solu-Medrol) 125 mg IM DAILY [facility] Last Admin: 07/10/16 07:53 Dose: 125 mg Metoprolol Succinate (Toprol Xl) 25 mg PO 1200 [facility] Last Admin: 07/11/16 13:21 Dose: Not Given Metoprolol Succinate (Toprol Xl) Confirm Administered Dose 25 mg .ROUTE .STK- MED ONE Stop: 07/11/16 12:50 Last Admin: 07/11/16 12:59 Dose: 25 mg Metoprolol Succinate (Toprol Xl) 25 mg PO DAILY@1200 [facility] Last Admin: 07/13/16 12:08 Dose: Not Given Montelukast Sodium (Singulair) 10 mg PO 1200 [facility] Last Admin: 07/11/16 12:30 Dose: 10 mg Montelukast Sodium (Singulair) Confirm Administered Dose 10 mg .ROUTE .STK-MED ONE Stop: 07/11/16 12:49 Last Admin: 07/11/16 13:01 Dose: Not Given Morphine Sulfate (Morphine) Confirm Administered Dose 2 mg .ROUTE .STK-MED ONE Stop: 07/03/16 12:57 Last Admin: 07/03/16 13:21 Dose: 0.5 mg Xopenex Inhaler 0 - 2 each INH SEECOMMENT PRN PRN Reason: COPD Ondansetron HCl (Zofran Odt) Confirm Administered Dose 4 mg .ROUTE .STK-MED ONE Stop: 07/04/16 05:18 Last Admin: 07/04/16 05:29 Dose: 4 mg Tuberculin PPD (Aplisol) 5 unit IDERM ONETIME ONE Stop: 07/02/16 11:30 Last Admin: 07/03/16 14:55 Dose: 5 unit Vancomycin HCl (Vancomycin) 0.125 gm PO QID [facility] Stop: 07/11/16 20:00 Last Admin: 07/11/16 20:28 Dose: 0.125 gm - Problem List & Annotations (1) COPD exacerbation SNOMED Code(s): 234009698, 042392986 Code(s): J44.1 - CHRONIC OBSTRUCTIVE PULMONARY DISEASE W (ACUTE) EXACERBATION Status: Acute Priority: High Current Visit: Yes (2) Clostridium difficile diarrhea SNOMED Code(s): 065680441, 893080907 Code(s): A04.7 - ENTEROCOLITIS DUE TO CLOSTRIDIUM DIFFICILE Status: Acute Priority: Medium Current Visit: Yes (3) CHF (congestive heart failure) SNOMED Code(s): 96200860 Code(s): I50.9 - HEART FAILURE, UNSPECIFIED Status: Chronic Priority: Medium Current Visit: Yes Qualifiers: Congestive heart failure type: unspecified congestive heart failure type Congestive heart failure chronicity: chronic Qualified Code(s): I50.9 - Heart failure, unspecified (4) Colon cancer SNOMED Code(s): 319826591 Code(s): C18.9 - MALIGNANT NEOPLASM OF COLON, UNSPECIFIED Status: Chronic Priority: Medium Current Visit: Yes Qualifiers: Colon location: unspecified part of colon Qualified Code(s): C18.9 - Malignant neoplasm of colon, unspecified (5) Hypothyroidism SNOMED Code(s): 55099948 Code(s): E03.9 - HYPOTHYROIDISM, UNSPECIFIED Status: Chronic Priority: Medium Current Visit: Yes Qualifiers: Hypothyroidism type: acquired Qualified Code(s): E03.9 - Hypothyroidism, unspecified (6) Pneumonia SNOMED Code(s): 366778434 Code(s): J18.9 - PNEUMONIA, UNSPECIFIED ORGANISM Status: Resolved Priority: High Current Visit: No Qualifiers: Pneumonia type: due to unspecified organism Laterality: right Lung location: lower lobe of lung Qualified Code(s): J18.1 - Lobar pneumonia, unspecified organism (7) Generalized weakness SNOMED Code(s): 10274547 Code(s): R53.1 - WEAKNESS Status: Acute Priority: High Current Visit: Yes - My Orders Last 24 Hours: My Active Orders 07/18/16 07:00 Ready for Discharge [RC] PER UNIT ROUTINE - Plan Plan:: Patient to continue on antibiotics orally for full course of vanco and 3 more days of augmentin. Patient will start PT/OT for generalized weakness. We will continue IVF hydration at this time. Discussed colon cancer diagnosis and there are no plans for further workup or management as prior Oncologist would not do any further intervention due to severe COPD. Patient to be on current COPD management. We will continue to slowly taper solumedrol. 07/07/16 Discussed sob symptoms and likelihood of her symptoms being her baseline. She continues to be on methylprednisolone and we will taper to daily today. Discussed future plans of care center or discharge and patient/daughter agree that they do not want the care center and would rather go home. 07/14/16 Patient has continued with taper of steroids - with Dr. Dempsey tapering to 40mg prednisone orally. We will continue to taper. Patient is doing well with taper with no increase in sob. Discussed lung cancer with patient and daughter and per family they are not going to do anything more as per daughter the Doctors are unwilling to continue further management/treatment due to her severe COPD. Continuing PT/OT.
[2016-07-17] MEDS: Melatonin 3 MG Tab PO SCH (20:17)
[2016-07-18] MEDS: XOPENEX INHALER INH PRN (00:01)
[2016-07-18] MEDS: Ipratropium 0.02% 0.5 MG/2.5 ML Neb Soln NEB SCH ×2 (02:04→08:10)
[2016-07-18] MEDS: Levothyroxine 100 MCG Tab PO SCH (06:56)
[2016-07-18] MEDS: Nystatin Susp 100,000 Unit/ML 5 ML UD Cup PO SCH ×2 (08:09→11:21)
[2016-07-18] MEDS: Metoprolol Succinate 25 MG Tab.ER PO SCH (08:10)
[2016-07-18] MEDS: predniSONE 10 MG Tab PO SCH (08:10)
[2016-07-18] MEDS: Omeprazole 20 MG Cap.CR PO SCH (08:10)
[2016-07-18] MEDS: Ascorbic Acid 500 MG Tab PO SCH (08:10)
[2016-07-18] MEDS: Furosemide 40 MG Tab PO SCH (08:10)
[2016-07-18] MEDS: Ketoconazole 2% Crm 30 GM Tube TOP SCH (08:11)
[2016-07-18] MEDS: BROVANA INH SCH (08:11)
[2016-07-18] MEDS: Fluticasone Propionate 220 MCG/Puff 12 GM Inhaler INH SCH (08:12)
[2016-07-18] MEDS: Montelukast 10 MG Tab PO SCH (11:21)
[2016-07-18] MEDS: Cetirizine 10 MG Tab PO SCH (11:21)
[2016-07-18] MEDS: Lactobacillus Acidophilus/Lactobacillus Sporogenes (Probiotic) Tab PO SCH (11:22)
[2016-07-18] MEDS: GENTLE IRON PO SCH (11:22)
[2016-07-18] MEDS: VITAMIN D3 PO SCH (11:23)
[2016-07-18] MEDS: TYLENOL SINUS PO SCH (11:23)
[2016-07-18] MEDS: Multivitamins with Iron/Calcium/Folic Acid/Minerals Tab PO SCH (11:24)
[2016-07-18] MEDS ORDERED: Multivitamins with Iron/Calcium/Folic Acid/Minerals Tab ONE (11:27)
[2016-07-18 13:44] VITALS: BP 121/62
== END 2016-07-18 13:30 | disposition home health service (06) | DRG 947 ==
LOC: UNDOADMIN 07-02 11:19 → LB.MS 07-02 11:19 → UNDOADMIN 07-02 11:29 → LB.MS 07-02 11:29 → UNDOADMIN 07-02 13:42 → LB.MS 07-02 13:42
PROVIDERS: ADMIT Family Medicine; ATTEND Family Medicine
DX: R53.1 Weakness (principal); J18.1 Lobar pneumonia, unspecified organism; J44.1 Chronic obstructive pulmonary disease with (acute) exacerbation; A04.7 Enterocolitis due to Clostridium difficile; C18.9 Malignant neoplasm of colon, unspecified; B37.0 Candidal stomatitis; Z66 Do not resuscitate; I50.9 Heart failure, unspecified; E03.9 Hypothyroidism, unspecified; Z87.891 Personal history of nicotine dependence; F41.9 Anxiety disorder, unspecified; Z99.81 Dependence on supplemental oxygen; L89.322 Pressure ulcer of left buttock, stage 2; L89.312 Pressure ulcer of right buttock, stage 2; Z88.1 Allergy status to other antibiotic agents; Z88.2 Allergy status to sulfonamides; Z88.8 Allergy status to other drugs, medicaments and biological substances
CPT/HCPCS: 86580; 97110-GO; 97110-GP; 97162-GP; 97165-GO; A9270-GY; J2060; J2270; J2930; J3370; J7605